=== PATIENT | female | born 1995 | race Two or more races ===

== ENCOUNTER 2020-07-11 18:14 | Emergency (ER) | payer SELFPAY ==
[2020-07-11 19:01] VITALS: BP 131/77; PULSE 90; RESP 16; TEMP 36.6; O2SAT 99; BMI 39.4
--- NOTE | 2020-07-11 19:05 | ED.CHESTPAIN ---
HPI - Chest Pain General Chief Complaint: Chest Pain Stated Complaint: sob Time Seen by Provider: 07/11/20 18:54 Source: patient Mode of arrival: ambulatory Limitations: no limitations History of Present Illness HPI narrative: patient 24 years old with no comorbid condition nonsmoker no family history of coronary artery disease noticed mid chest pain while driving an hour ago which was increasing while taking a deep breath. No shortness of breath no radiation of pain no diaphoresis no nausea no vomiting patient never had any chest pain like this before. Patient has no risk for coronary artery disease / blood clots complaint: chest pain Onset (ago): hour(s) (1) Timing of current episode: constant Prior episodes: No Onset: during rest Pain location: substernal Pain radiation: none Severity: mild Related Data Previous Rx's Medication Instructions Recorded ibuprofen 600 mg PO Q6H PRN #20 tab 07/11/20 Allergies Allergy/AdvReac Type Severity Reaction Status Date / Time No Known Allergies Allergy Unverified 05/27/20 19:08 Review of Systems Review of Systems: REVIEW OF SYSTEMS: Pertinent positives and negatives are stated above in the history. GEN: no fevers, chills, fatigue HEENT: no nasal congestion, sore throat, ear pain NEURO: no headache, dizziness, focal weakness PULM: no cough, shortness of breath CV: no palpitations, LE edema ABD: no abdominal pain, nausea, vomiting, diarrhea : no dysuria, urgency, frequency SKIN: no rash ROS otherwise negative x 10 PMFSH Past Medical History Medical History No known health problems Social History Social History Alcohol intake: never Smoking Status: Never smoker Use of substances other than those prescribed or required for medical reasons: No Advance Directives: No Physical Exam Vital Signs: Vital Signs: Vital Signs Temp Pulse Resp BP Pulse Ox 07/11/20 19:08 97.9 F 90 16 131/77 99 07/11/20 19:01 97.9 F 90 16 131/77 99 Body Mass Index 39.4 Appearance: Alert. Oriented X3. No acute distress. Eyes: Pupils equal, round and reactive to light. ENT: Pharynx normal. Neck: Normal inspection. Neck supple. CVS: Normal heart rate and rhythm. Pulses normal. Respiratory: No respiratory distress. Breath sounds normal. Abdomen: Soft and nontender. Skin: Skin warm and dry. Normal skin color. Normal skin turgor. Extremities: No lower extremity edema. Good range of movement Neuro: Oriented X 3. No motor deficit. No sensory deficit. Course Course Course Narrative: patient with atypical chest pain with no risk factor for coronary artery disease/ PE EKG normal high sensitive troponin is negative will discharge her home on ibuprofen MDM - Chest Pain Lab Data Labs: Lab Results 07/11/20 Range/Units 19:13 Troponin I High Sens < 3.5 (<3.5-17.0) ng/L ECG Data ECG #1: Attestation: I personally reviewed and interpreted this ECG as follows: ECG interpretation date: 07/11/20 ECG interpretation time: 20:07 Interpretation: normal sinus rhythm heart rate [address] T wave changes normal intervals impression normal EKG Scores Heart Score History: -0- slightly suspicious ECG: -0- normal Age: -0- < or = 45 Risk factory: -0- no risk factors known Troponin: -0- < or = normal limit Score: 0 Risk: 1.7% Discharge Plan Discharge Clinical Impression: Atypical chest pain Patient Disposition: Home, Self-Care Instructions: Chest Wall Pain (ED) Additional Instructions: your chest pain is unlikely from the heart, take ibuprofen for pain and follow-up with primary care doctor Prescriptions: New ibuprofen 600 mg tablet 600 mg PO Q6H PRN (Reason: pain) Qty: 20 RF: 0
--- NOTE | 2020-07-11 19:06 | ECG_ITS ---
Test Reason : SOB Blood Pressure : / mmHG Vent. Rate : 072 BPM Atrial Rate : 072 BPM P-R Int : 146 ms QRS Dur : 092 ms QT Int : 382 ms P-R-T Axes : 033 008 027 degrees QTc Int : 418 ms Normal sinus rhythm Possible Left atrial enlargement Borderline ECG No previous ECGs available Referred By: Fahad Rouse Electronically Signed By:ASIF ARCHIBALD MD
[2020-07-11 19:08] VITALS: BP 131/77; PULSE 88; PULSE 90; RESP 16; TEMP 36.6; O2SAT 99
[2020-07-11 19:57] LABS: Troponin-I High Sensitivity < 3.5 ng/L (<3.5-17.0)
[2020-07-11 20:00] VITALS: BP 127/77; PULSE 88; RESP 16; TEMP 36.8; O2SAT 100
== END 2020-07-11 20:21 | disposition home or self-care (01) ==
PROVIDERS: Emergency Provider Internal Medicine; PCP Internal Medicine
DX: R07.9 Chest pain, unspecified (principal); Z82.49 Family history of ischemic heart disease and other diseases of the circulatory system
CPT/HCPCS: 84484; 93005; 99283; 99284

== ENCOUNTER 2021-04-05 13:06 | Outpatient (REF) | payer OTHER, SELFPAY ==
[2021-04-06 08:48] LABS: HBS Num1 0.35 mIU/mL (0-7.99); ~Hepatitis B Surface Antibody NONREACTIVE (Nonreactive)
[2021-04-06 09:27] LABS: HBc Num1 0.06 S/CO (0.00-0.79); HBsAGNum1 0.24 S/CO (0.00-0.99); Hepatitis B Core Antibody Nonreactive (Nonreactive); Hepatitis B Surface Antigen Negative (Negative)
[2021-04-07 06:35] LABS: Rubella IgG Antibody 2.08 Index
[2021-04-07 21:26] LABS: TS Negative Control Passed; TS Panel A 0; TS Panel B 0; TS Positive Control Passed; TSpotTB Negative (SeeBelow)
== END 2021-04-05 13:07 | disposition home or self-care (01) ==
LOC: HO.LAB 13:06
PROVIDERS: PCP Internal Medicine; Visit Provider Internal Medicine
DX: Z01.84 Encounter for antibody response examination (principal); Z11.1 Encounter for screening for respiratory tuberculosis
CPT/HCPCS: 36415; 86481; 86704; 86706; 86735; 86762; 86765; 86787; 87340

== ENCOUNTER 2021-11-15 08:58 | Outpatient (REF) | payer OTHER, SELFPAY ==
[2021-11-15 09:26] LABS: MANUAL DIFF FLAG NO
[2021-11-15 10:04] LABS: Basophils Percent Auto 0.3 % (0-2); Eosinophils Absolute Auto 0.1 X10*3/uL (0.0-0.4); Eosinophils Percent Auto 1.2 % (0-4); Imm Gran Abs Auto 0.02 X10*3/uL (0.00-0.03); Imm Gran Pct Auto 0.3 % (0.0-0.4); Lymphocytes Absolute Auto 2.8 X10*3/uL (1.2-4.9); Lymphocytes Percent Auto 37.4 % (20-40); Mean Corpuscular HGB Conc 30.2 g/dl (31.0-35.0); Mean Corpuscular Hemoglobin 25.4 pg (27.0-33.0); Mean Platelet Volume 9.9 fL (9.4-12.3); Monocytes Absolute Auto 0.5 X10*3/uL (0.1-1.2); Monocytes Percent Auto 6.4 % (2-11); Neutrophils Absolute Auto 4.1 x10*3/uL (2.0-8.3); Neutrophils Percent Auto 54.4 % (45-73); Platelet Count 351 X10*3/uL (160-400); Red Blood Count 5.12 X10*6/uL (4.20-5.50); Red Cell Distribution Width 14.2 % (11.0-16.0); White Blood Count 7.6 X10*3/uL (4.8-10.8)
[2021-11-15 10:41] LABS: Alanine Aminotransferase 98 U/L (0-31); Albumin Level 4.5 g/dL (3.5-5.0); Alkaline Phosphatase 84 U/L (39-117); Anion Gap 13 (12-20); Aspartate Amino Transferase 52 U/L (5-31); Bilirubin Total 0.5 mg/dL (0.0-1.0); Blood Urea Nitrogen 8 mg/dL (9-16); Calcium 9.9 mg/dL (8.4-10.2); Carbon Dioxide 27 mmol/L (22-29); Chloride 104 mmol/L (96-108); Cholesterol 163 mg/dL; Estimated Glomerular Filt Rate > 60; Glucose Fasting 129 mg/dL (60-99); HDL Cholesterol 43 mg/dL; LDL Cholesterol Calculated 100 mg/dl; Potassium 4.8 mmol/L (3.3-5.1); Sodium 139 mmol/L (135-145); Total Protein 7.5 g/dL (6.5-8.0); Triglycerides 100 mg/dL
[2021-11-15 10:48] LABS: Thyroid Stimulating Hormone 1.35 uIU/mL (0.32-4.0)
[2021-11-16 08:46] LABS: DHEA Sulfate 170 mcg/dL (14-349)
[2021-11-16 08:56] LABS: Follicle Stimulating Hormone 4.5 mIU/mL
[2021-11-19 19:36] LABS: Testosterone, Free 9.1 pg/mL (0.1-6.4); Testosterone, Total 42 ng/dL (2-45)
== END 2021-11-15 08:59 | disposition home or self-care (01) ==
LOC: HO.LAB 08:58
PROVIDERS: PCP Internal Medicine; Visit Provider Nurse Practitioner Family
DX: D64.9 Anemia, unspecified (principal); E66.01 Morbid (severe) obesity due to excess calories; E78.5 Hyperlipidemia, unspecified; N91.2 Amenorrhea, unspecified
CPT/HCPCS: 36415; 80053; 80061; 82627; 83001; 84146; 84402; 84403; 84443; 85025

== ENCOUNTER → 2021-12-02 08:02 | Outpatient (BNVA) | payer OTHER, SELFPAY | PROVIDERS: PCP Internal Medicine; Referring Provider Physician Assistant; Visit Provider Physician Assistant Surgical | DX: Z13.89 Encounter for screening for other disorder (principal) ==

== ENCOUNTER → 2021-12-09 12:53 | Outpatient (BNVA) | payer OTHER, SELFPAY | PROVIDERS: PCP Internal Medicine; Referring Provider Internal Medicine; Visit Provider Physician Assistant Surgical | DX: Z13.89 Encounter for screening for other disorder (principal) ==

== ENCOUNTER 2021-12-20 07:13 | Outpatient (REF) | payer OTHER, SELFPAY ==
--- NOTE | 2021-12-20 07:27 | ECG_ITS ---
Test Reason : E66.01 Blood Pressure : / mmHG Vent. Rate : 069 BPM Atrial Rate : 069 BPM P-R Int : 156 ms QRS Dur : 094 ms QT Int : 394 ms P-R-T Axes : 026 002 021 degrees QTc Int : 422 ms Normal sinus rhythm Normal ECG When compared with ECG of 11-JUL-2020 21:03, No significant change was found Referred By: Reed King Electronically Signed By:Colton Elizabeth
[2021-12-20 08:12] LABS: Estimated Average Glucose 120 mg/dL; Hemoglobin A1c % 5.8 %
[2021-12-20 08:24] LABS: C Reactive Protein 1.48 mg/dL (< or = 0.50); Iron 67 mcg/dL (30-160); Percent Iron Saturation 18 % (15-50); Total Iron Binding Capacity 382 mcg/dL (228-428); Unsaturated Iron Binding 315 ug/dL
[2021-12-20 08:45] LABS: Ferritin 94 ng/mL (10-122); Insulin 21 uU/mL (2-29); Vitamin D 25-OH Total 17.5 ng/mL (>30)
[2021-12-20 08:54] LABS: Folate > 20.0 ng/mL (> or = 4.0); Vitamin B12 546 pg/mL (200-900)
[2021-12-21 11:31] LABS: Calcium (PTHI) 9.9 mg/dL (8.6-10.2); PTHI 72 pg/mL (16-77)
[2021-12-21 12:54] LABS: H Pylori Breath Test Negative (Negative)
[2021-12-23 15:16] LABS: Zinc 75 mcg/dL (60-130)
[2021-12-24 08:27] LABS: Vitamin B1 7 nmol/L (8-30)
[2021-12-27 03:01] LABS: Vitamin A 37 mcg/dL (38-98)
== END 2021-12-20 07:14 | disposition home or self-care (01) ==
LOC: HO.LAB 07:13
PROVIDERS: PCP Internal Medicine; Visit Provider Physician Assistant Surgical
DX: Z01.818 Encounter for other preprocedural examination (principal); E66.01 Morbid (severe) obesity due to excess calories
CPT/HCPCS: 36415; 82306; 82607; 82728; 82746; 83013; 83036; 83525; 83540; 83970; 84425; 84590; 84630; 86140; 93005

== ENCOUNTER → 2021-12-27 08:02 | Outpatient (BNVA) | payer OTHER, SELFPAY | PROVIDERS: PCP Internal Medicine; Visit Provider Dietitian, Registered | DX: Z13.89 Encounter for screening for other disorder (principal) ==

== ENCOUNTER → 2021-12-29 07:57 | Outpatient (BNVA) | payer OTHER, SELFPAY | PROVIDERS: PCP Internal Medicine; Referring Provider Physician Assistant Surgical; Visit Provider Dietitian, Registered | DX: E66.9 Obesity, unspecified (principal); Z68.41 Body mass index [BMI] 40.0-44.9, adult | CPT/HCPCS: 97802 ==

== ENCOUNTER → 2021-12-30 08:04 | Outpatient (BNVA) | payer OTHER, SELFPAY | PROVIDERS: PCP Internal Medicine; Visit Provider Surgery | DX: Z13.89 Encounter for screening for other disorder (principal) ==

== ENCOUNTER → 2022-01-17 09:00 | Outpatient (BNVA) | payer OTHER, SELFPAY | PROVIDERS: PCP Internal Medicine; Visit Provider Counselor Mental Health | DX: F33.0 Major depressive disorder, recurrent, mild (principal); F50.81 Binge eating disorder ==

== ENCOUNTER → 2022-01-19 08:04 | Outpatient (BNVA) | payer OTHER, SELFPAY | PROVIDERS: PCP Internal Medicine; Visit Provider Dietitian, Registered | DX: Z13.89 Encounter for screening for other disorder (principal) ==

== ENCOUNTER 2022-01-31 08:27 | Outpatient (REF) | payer OTHER, SELFPAY ==
--- NOTE | ~2022-01-31 | FL_ITS ---
EXAMINATION: XR FLUOROSCOPY UPPER GI WITH AIR CLINICAL INFORMATION: Obesity COMPARISON: None TECHNIQUE: Upper GI was performed using thin and thick barium and effervescent granules FINDINGS: There is gastroesophageal reflux. Esophageal motility is normal. No hernia is seen. The stomach and duodenum are normal. No fold thickening, mass, ulcer or stricture is seen. FLUOROSCOPY TIME: 0.6 minutes DOSE AREA PRODUCT: 5.4 vaughan per centimeter squared. 21 saved fluoroscopic images. FL/FL upper GI w air IMPRESSION: Gastroesophageal reflux.
--- NOTE | ~2022-01-31 | US_ITS ---
EXAMINATION: US COMPLETE ABDOMEN WITH LIVER ELASTOGRAPHY CLINICAL INFORMATION: Obesity COMPARISON: None. TECHNIQUE: Real-time imaging of the abdominal viscera. Noninvasive ultrasound liver fibrosis assessment is performed using Chandler ElastPQ point quantification shear wave elastography (2D-SWE) with a C5-2 MHz transducer. Multiple elastography samples are obtained. FINDINGS: PANCREAS: Normal. ABDOMINAL AORTA: The proximal, middle, and distal aortic segments are normal in caliber. INFERIOR VENA CAVA: Visualized portions are normal. LIVER: Liver echotexture is increased. There is a hypoechoic area adjacent to the gallbladder, characteristic location of focal fatty sparing. The liver is enlarged. Liver contour is normal.. No focal lesion or intrahepatic biliary duct dilatation. The right lobe measures 22 cm in length. The left lobe measures 17 cm in length. Portal flow is normal/hepatopedal Shear wave liver elastography median stiffness is 1.4 m/s (reference: normal median stiffness is 1.3 m/s or less). IQR/median stiffness to assess sampling precision is 0.08 (reference: good quality data set is IQR/median stiffness of 0.15 or less). GALLBLADDER: Normal. The gallbladder is physiologically distended without evidence of stones, sludge, polyps, wall thickening or pericholecystic fluid. COMMON BILE DUCT: Normal in caliber measuring 0.3 cm in diameter. RIGHT KIDNEY: Normal. No hydronephrosis. No renal calculi or focal parenchymal lesions. The kidney measures 13 cm in maximum dimension. LEFT KIDNEY: Normal. No hydronephrosis. No renal calculi or focal parenchymal lesions. The kidney measures 12 cm in maximum dimension. SPLEEN: Normal. The spleen measures 12 cm in maximum dimension. FREE FLUID: None. US/US abdomen comp w elastography IMPRESSION: 1. Impression: Enlarged echogenic liver suggestive of fatty infiltration. 2. Liver elastography: Adequate liver sampling. In the absence of other known clinical signs, rules out compensated advanced chronic liver disease. REFERENCE: Society of Radiologists in Ultrasound Liver Stiffness Thresholds (2020): LIVER STIFFNESS THRESHOLDS: *Liver Stiffness equal or less than 1.3 m/s: High probability of being normal. *Liver Stiffness less than 1.7 m/s: In the absence of other known clinical signs, rules out compensated advanced chronic liver disease. *Liver Stiffness 1.7-2.1 m/s: Suggestive of compensated advanced chronic liver disease but need further test for confirmation. *Liver Stiffness over 2.1 m/s: Rules in compensated advanced chronic liver disease. *Liver Stiffness over 2.4 m/s: Suggestive of clinically significant portal hypertension. QUALITY OF DATA SET: *IQR/Median value equal or less than 0.15 implies a quality data set. *IQR/Median value over 0.15 implies a poor quality data set. SIGNIFICANT CHANGE FROM PRIOR EXAM: Significant change if liver stiffness measurement is 10% or greater from prior exam. OTHER CONSIDERATIONS: The stage of liver fibrosis may be overestimated in the setting of acute hepatitis, liver inflammation, elevated liver function tests, hepatic vascular congestion, obstructive cholestasis, non-fasting state, and infiltrative diseases such as amyloidosis and lymphoma. In some patients with NAFLD, the liver stiffness thresholds for compensated advanced chronic liver disease may be lower. In causes other than viral hepatitis and NAFLD, liver stiffness thresholds are not well established.
--- NOTE | ~2022-01-31 | XR_ITS ---
EXAMINATION: XR CHEST CLINICAL INFORMATION: Obesity COMPARISON: Previous chest x-ray September 2018 TECHNIQUE: 2 views of the chest were obtained. FINDINGS: No significant abnormality is noted involving the heart, lungs, mediastinum, bony thorax or soft tissues. XR/XR chest 2V IMPRESSION: Unremarkable examination.
== END 2022-01-31 08:28 | disposition home or self-care (01) ==
LOC: HO.US 08:27
PROVIDERS: PCP Internal Medicine; Visit Provider Surgery
DX: Z01.818 Encounter for other preprocedural examination (principal); E66.01 Morbid (severe) obesity due to excess calories; K21.9 Gastro-esophageal reflux disease without esophagitis
CPT/HCPCS: 71046; 74246; 76705; 76981

== ENCOUNTER → 2022-02-03 08:25 | Outpatient (BNVA) | payer OTHER, SELFPAY | PROVIDERS: PCP Internal Medicine; Visit Provider Surgery | DX: Z13.89 Encounter for screening for other disorder (principal) ==

== ENCOUNTER → 2022-02-07 09:00 | Outpatient (BNVA) | payer OTHER, SELFPAY | PROVIDERS: PCP Internal Medicine; Visit Provider Counselor Mental Health | DX: F33.0 Major depressive disorder, recurrent, mild (principal); F50.81 Binge eating disorder | CPT/HCPCS: 90832 ==

== ENCOUNTER 2023-07-04 10:07 | Outpatient (AMB) | payer OTHER, SELFPAY ==
--- NOTE | 2023-07-04 10:18 | A.OFFVIS_ITS ---
Intake Vital Signs 07/04/23 10:26 Height 5 ft 6 in Weight 250 lb BMI 40.3 BP 122/76 Intake Visit Reasons: EMT I/99 annual exam Intake Note: Having trouble conceive Janitorial Supervisor Required: No Information Interpreted: non-clinical & clinical Laundry Equipment Operator: Laundry Equipment Operator Present (Vivi CORONA) Accompanied by: Self / Same As Patient Allergies No Known Allergies Allergy (Verified 07/04/23 10:28) Medication List - Last Reconciled 07/04/23 by Libby Coburn CNM PNV #[id number] 30 mg iron-10 mg iron-1 mg caps PO Is last menstrual period known: Yes Last menstrual period: 05/21/23 HPI EMT I/99 annual exam HPI Details Patient is here for an annual exam and also did discuss her efforts to get and she has been trying for 5 years and her periods have become more irregular and longer when she does get them her last period was 911 and it lasted for 2 weeks she has also gained weight over the years she has recently begun and weight loss efforts doing her exercises at home every day for 30-45 minutes after work and she is seeing some results but not maybe is fast as she would like she is cut out a lot of carbs and dairy and is working hard on her diet she was told she was prediabetic she has noticed increased facial hair over the last 3 months. She also has the darkening of the skin around her neck and other areas. She had tried the weight management program before but got scared before surgery. She gets very irregular periods and when they come they last a long time in are heavy. She is working hard on losing the weight because she knows that that is part of what she needs to do. [facility] Medical History Morbid obesity Lumbar pain No known health problems Surgical History No pertinent past surgical history Family History (Updated 07/04/23 @ 10:30 by Vivi Heath CMA) Father Diabetes mellitus Heart problem Mother Family history of thyroid problem Brother No problems noted. Maternal Grandmother Breast cancer Social History (Updated 07/04/23 @ 10:32 by Vivi Heath CMA) Household Members: Significant Other Housing: Apartment Alcohol intake: current Alcohol intake frequency: holidays/special occasions only Alcohol type: wine Patient Tobacco Use Status: Never used Tobacco e-Cigarette/Vaping Use: Never Used Second Hand Smoke Exposure: No service: No Current occupational status: employed Current occupation: [employer] Current occupational exposures/hazards: No Sexually active: Yes Sexual orientation: Straight/Heterosexual Gender identity: Female Cognitive needs: No Hearing needs: No Vision needs: Yes Female Reproductive History Menstrual Date of last menstrual period: 05/21/23 Total pregnancies: 0 Date of last pap smear: 06/23/16 Physical Exam Vital Signs: Last Vital Signs BP 122/76 07/04/23 10:26 BMI result Body Mass Index 40.3 Const General: healthy appearing, comfortable, no acute distress, well developed and alert Nutritional Appearance: average body habitus Orientation/consciousness: patient oriented x3 Limitations: no limitations HEENT Head: Yes normocephalic Neck Neck: Yes normal visual inspection Thyroid: Thyroid normal Chest Chest palpation & inspection: normal inspection of the chest Breast/axilla inspection: normal inspection of the breasts and normal inspection of the axillae Breast/axilla palpation: normal palpation of the breasts and normal palpation of the axillae Resp Effort & Inspection: normal respiratory effort GI Inspection: Yes normal to inspection, No Abdominal wall edema and No distended Palpation (GI): Soft to palpation and nontender Other: External exam within normal limits vagina pink moist healthy cervix pink moist healthy nulliparous smooth uterus small mobile nontender adnexa nontender good tone with Kegel. General: Yes bladder normal to palpation External Female Exam: normal external appearance and normal appearance of the urethra Speculum Exam - Vagina: normal appearance of the vagina, normal palpation and normal vaginal discharge Speculum Exam - Cervix: normal appearance of the cervix, normal palpation and nontender Bimanual exam- vagina & uterus: normal bimanual exam, normal palpation, uterine size normal, bladder normal to palpation, consistency normal, normal palpation, uterine mobility normal, uterine shape normal, No Cervical tenderness present, non-tender and no cervical motion tenderness Bimanual Exam- Adnexa, other: normal adnexae, no masses, normal and No adnexal tenderness Neuro General: patient oriented x3 Assessment & Plan Assessment & Plan (1) Body mass index (BMI) of 40.1 to 44.9 in adult: Code(s): Z68.41 - Body mass index [BMI] 40.0-44.9, adult (2) Amenorrhea: Comment: Periods of amenorrhea followed by long periods. Code(s): N91.2 - Amenorrhea, unspecified (3) Impaired glucose tolerance: Code(s): R73.02 - Impaired glucose tolerance (oral) (4) Hirsutism: Code(s): L68.0 - Hirsutism (5) Acanthosis nigricans: Code(s): L83 - Acanthosis nigricans Plan -----Discussed in this visit the following: healthy balanced diet, regular and consistent exercise, getting recommended health screens, doing the best she can for her particular health concerns, kegel exercises, pap smear screening and followup recommendations, mammography screening and SBE, normal changes in cycles in her life stage--- . ---Discussed PCOS in general and specifically about the interplay of the abnormal hormonal milieu related to being overweight, with the elevations of many hormone levels, including testosterone and estrogen, as well as others that contribute to cycles that are anovulatory and therefore prolonged, and when periods do come they come very heavy, and can contribute to lots of cramping, with passage of clots and anemia. Discussed the common symptoms related to the elvated hormonal levels, including increased facial hair, male pattern hair thinning, acne, and increased central abdominal girth. Discussed the interplay with difficulty getting when desired, but still possible, and therefore the need to contracept as appropriate and when needed. Discussed the role of weight loss as the primary, most important, and most likely to succeed, intervention, in achieving healthier status as regards PCOS, and ovulatory regular cycles. Additionally the very important relationship to elevated insulin levels, and blood sugars, and high risk of pre diabetes, progressing to diabetes as well as other metabolic syndromes related to this was discussed. Also discussed common interventions for some of the above, including if appropriate, use of oral contraceptives, and progestin iuds, and provera.Discussed in general terms the challenges of obesity and challenges for her health and efforts she is engaging in to manage this including dietary changes water intake attention to sleep inclusion of a regular exercise have it and dealing with the may need stressors of life that can contribute to obesity in general. Encouraged her to continue in all have her best efforts Orders: Orders Pap Smear Today Z01.419 - Encounter for gynecological examination (general) (routine) without abnormal findings CT NG by PCR Today L68.0 - Hirsutism, L83 - Acanthosis nigricans, N91.2 - Amenorrhea, unspecified, R73.02 - Impaired glucose tolerance (oral), Z01.419 - Encounter for gynecological examination (general) (routine) without abnormal findings, Z68.41 - Body mass index [BMI] 40.0-44.9, adult Free T4 (Free Thyroxine) Today L68.0 - Hirsutism, L83 - Acanthosis nigricans, N91.2 - Amenorrhea, unspecified, R73.02 - Impaired glucose tolerance (oral), Z68.41 - Body mass index [BMI] 40.0-44.9, adult Comprehensive [place]. Panel Fast Today L68.0 - Hirsutism, L83 - Acanthosis nigricans, N91.2 - Amenorrhea, unspecified, R73.02 - Impaired glucose tolerance (oral), Z68.41 - Body mass index [BMI] 40.0-44.9, adult Glucose Tolerance 2 Hour Today L68.0 - Hirsutism, L83 - Acanthosis nigricans, N91.2 - Amenorrhea, unspecified, R73.02 - Impaired glucose tolerance (oral), Z68.41 - Body mass index [BMI] 40.0-44.9, adult US pelvic and transvaginal Today L68.0 - Hirsutism, L83 - Acanthosis nigricans, N91.2 - Amenorrhea, unspecified, R73.02 - Impaired glucose tolerance (oral), Z68.41 - Body mass index [BMI] 40.0-44.9, adult Bacterial Vaginosis Panel Today L68.0 - Hirsutism, L83 - Acanthosis nigricans, N91.2 - Amenorrhea, unspecified, R73.02 - Impaired glucose tolerance (oral), Z01.419 - Encounter for gynecological examination (general) (routine) without abnormal findings, Z68.41 - Body mass index [BMI] 40.0-44.9, adult Testosterone, Free/Total Today L68.0 - Hirsutism, L83 - Acanthosis nigricans, N91.2 - Amenorrhea, unspecified, R73.02 - Impaired glucose tolerance (oral), Z68.41 - Body mass index [BMI] 40.0-44.9, adult Thyroid Stimulating Hormone Today L68.0 - Hirsutism, L83 - Acanthosis nigricans, N91.2 - Amenorrhea, unspecified, R73.02 - Impaired glucose tolerance (oral), Z68.41 - Body mass index [BMI] 40.0-44.9, adult Referrals 2 Medical Weight Management Referral L68.0 - Hirsutism, L83 - Acanthosis nigricans, N91.2 - Amenorrhea, unspecified, R73.02 - Impaired glucose tolerance (oral), Z68.41 - Body mass index [BMI] 40.0-44.9, adult Medications: New desog-e.estradiol/e.estradiol 0.15-0.02 mgx21 /0.01 mg x 5 1 tab PO DAILY 84 tabs 4RF Coding Level of Care Code New Pt Prev Care 18-39yr([id number] Diagnoses Body mass index (BMI) of 40.1 to 44.9 in adult Z68.41 Amenorrhea N91.2 Impaired glucose tolerance R73.02 Hirsutism L68.0 Acanthosis nigricans L83
[2023-07-04 10:26] VITALS: BP 122/76; BMI 40.3
== END 2023-07-04 12:01 | disposition home or self-care (01) ==
PROVIDERS: PCP Internal Medicine; Visit Provider Advanced Practice Midwife
DX: Z01.419 Encounter for gynecological examination (general) (routine) without abnormal findings (principal); N91.2 Amenorrhea, unspecified; R73.02 Impaired glucose tolerance (oral); L68.0 Hirsutism; L83 Acanthosis nigricans; Z68.41 Body mass index [BMI] 40.0-44.9, adult
CPT/HCPCS: 99385

== ENCOUNTER 2023-07-04 10:07 | Outpatient (REF) | payer OTHER, SELFPAY ==
[2023-07-04 13:21] LABS: Free T4 (Free Thyroxine) 0.86 ng/dL (0.71-1.85); Thyroid Stimulating Hormone 1.05 uIU/mL (0.32-4.0)
[2023-07-04 18:40] LABS: CT PCR NOT DETECTED (Not Detect.); NG PCR NOT DETECTED (Not Detect.)
[2023-07-05 13:38] LABS: BV Int Neg Control Negative (Negative); BV Int Pos Control Positive (Positive)
[2023-07-09 14:39] LABS: Testosterone, Total 29 ng/dL (2-45)
== END 2023-07-04 10:08 | disposition home or self-care (01) ==
LOC: HO.LNP 10:07
PROVIDERS: PCP Internal Medicine; Visit Provider Advanced Practice Midwife
DX: Z01.419 Encounter for gynecological examination (general) (routine) without abnormal findings (principal); L83 Acanthosis nigricans; L68.0 Hirsutism; R73.02 Impaired glucose tolerance (oral); N91.2 Amenorrhea, unspecified; Z20.2 Contact with and (suspected) exposure to infections with a predominantly sexual mode of transmission
CPT/HCPCS: 0353U; 84402; 84403; 84439; 84443; 87480; 87510; 87660; 88142

== ENCOUNTER 2023-07-10 09:13 | Outpatient (REF) | payer OTHER, SELFPAY ==
[2023-07-10 10:30] LABS: Alanine Aminotransferase 41 U/L (0-31); Albumin Level 4.4 g/dL (3.5-5.0); Alkaline Phosphatase 62 U/L (39-117); Anion Gap 14 (12-20); Aspartate Amino Transferase 27 U/L (5-31); Bilirubin Total 0.5 mg/dL (0.0-1.0); Blood Urea Nitrogen 9 mg/dL (9-16); Calcium 9.7 mg/dL (8.4-10.2); Carbon Dioxide 25 mmol/L (22-29); Chloride 106 mmol/L (96-108); Estimated Glomerular Filt Rate > 60; Glucose Fasting 115 mg/dL (60-99); Potassium 4.3 mmol/L (3.3-5.1); Sodium 141 mmol/L (135-145); Total Protein 7.5 g/dL (6.5-8.0)
[2023-07-10 10:36] LABS: Glucose Fasting 115 mg/dL (60-99)
[2023-07-10 12:28] LABS: Glucose 1 Hour 162 mg/dL
[2023-07-10 12:28] LABS: Glucose 2 Hour 147 mg/dL
== END 2023-07-10 09:14 | disposition home or self-care (01) ==
LOC: HO.LAB 09:13
PROVIDERS: PCP Internal Medicine; Visit Provider Advanced Practice Midwife
DX: L83 Acanthosis nigricans (principal); L68.0 Hirsutism; R73.02 Impaired glucose tolerance (oral); N91.2 Amenorrhea, unspecified
CPT/HCPCS: 36415; 80053

== ENCOUNTER 2023-07-10 12:51 | Outpatient (REF) | payer OTHER, SELFPAY ==
--- NOTE | ~2023-07-10 | US_ITS ---
EXAMINATION: US PELVIS CLINICAL INFORMATION: Hirsutism. Acanthosis nigricans. Last menstrual period 05/21/2023. COMPARISON: None available. TECHNIQUE: Ultrasound of the pelvis is performed using both transabdominal and transvaginal transducers along with Doppler. Transvaginal imaging is performed due to inadequate visualization transabdominally. FINDINGS: The uterus is anteverted, heterogeneous and measures 7.2 x 3.8 x 4.2 cm. No discrete fibroids are identified. Endometrial thickness is 0.9 cm. Endometrium appears heterogeneous. There is no significant free fluid. Bilateral ovaries are unremarkable. Right ovary measures 2.5 x 2.4 x 2.4 cm, volume 7.48 mL. Left ovary measures 3.8 x 2.0 x 3.3 cm, volume 12.7 mL. US/US pelvic and transvaginal IMPRESSION: 1. No discrete fibroids. 2. Endometrial thickness of 0.9 cm. 3. Bilateral ovaries are unremarkable.
== END 2023-07-10 12:52 | disposition home or self-care (01) ==
LOC: HO.HMGCX 12:51
PROVIDERS: PCP Internal Medicine; Visit Provider Advanced Practice Midwife
DX: N91.2 Amenorrhea, unspecified (principal); L83 Acanthosis nigricans; L68.0 Hirsutism
CPT/HCPCS: 76830; 76856

== ENCOUNTER 2023-07-16 13:22 | Outpatient (AMB) | payer OTHER, SELFPAY ==
--- NOTE | 2023-07-16 13:22 | A.OFFVIS_ITS ---
Intake Intake Visit Reasons: TV us and lab follow up Vp Analysis Required: No Allergies No Known Allergies Allergy (Verified 07/16/23 13:23) Is last menstrual period known: Yes Last menstrual period: 07/16/23 Post menopausal: No HPI TV us and lab follow up HPI Details Tele visit to discuss patient's ultrasound and PCOS type labs. Call placed but the patient did not answer will recall in a few minutes. [facility] Medical History Morbid obesity Lumbar pain No known health problems Surgical History No pertinent past surgical history Family History Father Diabetes mellitus Heart problem Mother Family history of thyroid problem Brother No problems noted. Maternal Grandmother Breast cancer Social History Household Members: Significant Other Housing: Apartment Alcohol intake: current Alcohol intake frequency: holidays/special occasions only Alcohol type: wine Patient Tobacco Use Status: Never used Tobacco e-Cigarette/Vaping Use: Never Used Second Hand Smoke Exposure: No service: No Current occupational status: employed Current occupation: [employer] Current occupational exposures/hazards: No Sexual orientation: Straight/Heterosexual Gender identity: Female Cognitive needs: No Hearing needs: No Vision needs: Yes Female Reproductive History Menstrual Date of last menstrual period: 07/16/23 control method: none Date of last pap smear: 07/05/23 (negative) Results Reviewed Results Reviewed: RUN: 07/16/23 1330 PAGE 1 [facility] [address] [place] [id number] Teacher Instrumental: Felipe Little M.D. Specimen Inquiry Name: Veronica Hodge Age/Sex: 27/F : 1995 Unit#: [id number] Attend Dr: Libby Coburn Re07/04/23 Status: DEP REF Location: [facility] Disch: SPEC : [id number] RAEGAN: 07/04/23 STATUS: COMP REQ : [id number] RECD: 07/04/[address]: Libby Coburn COMP: 07/04/231 ENTERED: 07/04/[address]: Adriane Hampton MD ORDERED: Free T4, TSH Test Result Flag Reference Site Free T4 0.86 0.71-1.85 ng/dL TSH 3rd Gen. 1.05 0.32-4.0 uIU/mL TSH 3rd Generation ([facility]) Name: Veronica Hodge Age/Sex: 27/F : 1995 Unit#: [id number] Attend Dr: Libby Coburn [facility] Re07/10/23 Status: DEP [facility] Disch: SPEC : [id number] RAEGAN: 07/10/23 STATUS: COMP REQ : [id number] RECD: 07/10/[address]: Libby Coburn COMP: 07/10/230 ENTERED: 07/10/[address]: Adriane Hampton MD ORDERED: CMP Fast Test Result Flag Reference Site Sodium 141 135-145 mmol/L Potassium 4.3 3.3-5.1 mmol/L CL 106 96-108 mmol/L CO2 25 22-29 mmol/L Gap 14 12-20 BUN 9 9-16 mg/dL Creat 0.76 0.5-1.4 mg/dL EGFR > 60 NOTE: For -Honduran individuals, multiply the result by 1.210. Chronic Kidney Disease: Estimated GFR < 60 mL/min/1.73m2 Severe Kidney Disease: Estimated GFR < 15 mL/min/1.73m2 FBS 115 H 60-99 mg/dL A fasting glucose from 100-125 mg/dl is considered impaired (pre-diabetes). CA 9.7 8.4-10.2 mg/dL Total Bili 0.5 0.0-1.0 mg/dL AST (GOT) 27 5-31 U/L ALT (GPT) 41 H 0-31 U/L Protein, Total 7.5 6.5-8.0 g/dL Alb 4.4 3.5-5.0 g/dL Alk Phos 62 39-117 U/L Name: Veronica Hodge Age/Sex: 27/F : 1995 Unit#: [id number] Attend Dr: Libby Coburn CNM Re07/04/23 Status: DEP REF Location: [facility] Disch: SPEC : [id number] RAEGAN: 07/04/23 STATUS: COMP REQ : [id number] RECD: 07/04/[address]: Libby Coburn COMP: 07/09/23 ENTERED: 07/04/[address]: Adriane Hampton MD ORDERED: Testost Fr & T Test Result Flag Reference Site Testost, Tot 29 2-45 ng/dL QUM For additional information, please refer to http://education.Stigni.bg/faq/ [email or web address] (This link is being provided for informational/ educational purposes only.) This test was developed and its analytical performance characteristics have been determined by [facility] [place], [place]. It has not been cleared or approved by the U.S. Food and Drug Administration. This assay has been validated pursuant to the CLIA regulations and is used for clinical purposes. Testost, Free 5.0 0.1-6.4 pg/mL QUM This test was developed and its analytical performance characteristics have been determined by [facility] [place], [place]. It has not been cleared or approved by the U.S. Food and Drug Administration. This assay has been validated pursuant to the CLIA regulations and is used for clinical purposes. THIS TEST WAS PERFORMED AT: [employer] [address] SRINIVAS BENTON MD,PHD Patient: Veronica HodgeMR#: [id number]: 1995Acct:[id number]/Sex: FADM Date: 07/10/23Loc: [id number].[email or web address] Dr: Libby Coburn CNM Ordering Physician: Libby Coburn CNM Date of Service: 07/10/23 Procedure(s): US pelvic and transvaginal Accession Number(s): [id number] cc: Libby Coburn CNM; Adriane Hampton MD~ EXAMINATION: US PELVIS CLINICAL INFORMATION: Hirsutism. Acanthosis nigricans. Last menstrual period 05/21/2023. COMPARISON: None available. TECHNIQUE: Ultrasound of the pelvis is performed using both transabdominal and transvaginal transducers along with Doppler. Transvaginal imaging is performed due to inadequate visualization transabdominally. FINDINGS: The uterus is anteverted, heterogeneous and measures 7.2 x 3.8 x 4.2 cm. No discrete fibroids are identified. Endometrial thickness is 0.9 cm. Endometrium appears heterogeneous. There is no significant free fluid. Bilateral ovaries are unremarkable. Right ovary measures 2.5 x 2.4 x 2.4 cm, volume 7.48 mL. Left ovary measu res 3.8 x 2.0 x 3.3 cm, volume 12.7 mL. US/US pelvic and transvaginal IMPRESSION: 1. No discrete fibroids. 2. Endometrial thickness of 0.9 cm. 3. Bilateral ovaries are unremarkable. Dictated By:Gloria Espinosa MDSigned By:<Electronically signed by Gloria Espinosa MD in OV>07/11/23 1227 DD/ 1325TD/TT: Assessment & Plan Assessment & Plan (1) Cervical cancer screening: Comment: 07/04/2023 Pap is negative. Code(s): Z12.4 - Encounter for screening for malignant neoplasm of cervix (2) Acanthosis nigricans: Code(s): L83 - Acanthosis nigricans (3) Hirsutism: Code(s): L68.0 - Hirsutism (4) Impaired glucose tolerance: Comment: also noted 07/02- elevated fasting and 2'gtt c/w prediabetes, pt to f/u w pcc, see notes. Code(s): R73.02 - Impaired glucose tolerance (oral) (5) Body mass index (BMI) of 40.1 to 44.9 in adult: Code(s): Z68.41 - Body mass index [BMI] 40.0-44.9, adult (6) Amenorrhea: Comment: Periods of amenorrhea followed by long periods. Code(s): N91.2 - Amenorrhea, unspecified (7) Elevated alanine aminotransferase (ALT) level: Code(s): R74.01 - Elevation of levels of liver transaminase levels Plan I reviewed all of her labs and what some of the significance might be while she does not have all the clinical markers of PCOS she does have many of them sufficient to call at that. She had not started the control pills yet cou ld she had an heard from [facility] but I recommend she go pick them up and I double checked that the prescription did appear to have gone through for year supply of the OCPs I recommend she start them within the 1st few days of this. Which just started today. This will be a perfect time and if she gets them started early enough in the cycle than the next. 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 She is going to keep working on her health and she also received a notice from the weight management program for an appointment so she is going to be following up on that and she is really working on losing weight. Also discussed the increased liver function and the possible significance of that as well as the pre diabetes which she already knew about. Her thyroid level was in normal limits and the testosterone level was normal as well. We will see her in 3 months as she intends to start the OCPs and we will see her for blood pressure check and to see how she is doing. Telehealth Telehealth Location of provider rendering services: practice address Location of patient: address on file Patient Identification confirmed using: Name, : Yes Telehealth method: video Patient verbally consented to treatment: Yes Patient verbally consented to billing insurance company: Yes Patient informed of any privacy concerns related to visit: Yes Coding Level of Care Code Tele Est Pt Level 3 (31041) Diagnoses Cervical cancer screening Z12.4 Acanthosis nigricans L83 Hirsutism L68.0 Impaired glucose tolerance R73.02 Body mass index (BMI) of 40.1 to 44.9 in adult Z68.41 Amenorrhea N91.2 Elevated alanine aminotransferase (ALT) level R74.01 Time Spent (min) 35 Comment 5 cr./24 speaking w pt ( video didnt work),/6 charting
== END 2023-07-16 15:11 | disposition home or self-care (01) ==
LOC: HO.HWS 13:22
PROVIDERS: PCP Internal Medicine; Visit Provider Advanced Practice Midwife
DX: Z12.4 Encounter for screening for malignant neoplasm of cervix (principal); L83 Acanthosis nigricans; L68.0 Hirsutism; R73.02 Impaired glucose tolerance (oral); Z68.41 Body mass index [BMI] 40.0-44.9, adult; N91.2 Amenorrhea, unspecified; R74.01 Elevation of levels of liver transaminase levels
CPT/HCPCS: 99213

== ENCOUNTER → 2023-07-16 13:22 | Outpatient (BNVA) | payer OTHER, SELFPAY | PROVIDERS: PCP Internal Medicine; Visit Provider Advanced Practice Midwife ==

== ENCOUNTER → 2023-09-12 07:48 | Outpatient (BNVA) | payer OTHER, SELFPAY | PROVIDERS: PCP Internal Medicine; Visit Provider Surgery ==

== ENCOUNTER 2023-09-17 08:13 | Outpatient (AMB) | payer OTHER, SELFPAY ==
--- NOTE | 2023-09-17 08:06 | MHC.OFFVISWM ---
Intake VS Expanded 09/17/23 08:26 Height 5 ft 6 in Weight 247 lb 8 oz BMI 39.9 Body Fat % 44.7 Body Fat Mass 110.6 Fat Free Mass 137.2 Visceral Fat Rating 10 Body Water % 39.3 Body Water Mass 97.4 Basal Metabolic Rate/Score 1,940 Intake Visit Reasons: TV Re-Est SWL BMI Allergies No Known Allergies Allergy (Verified 09/17/23 08:06) Medication List - Last Reconciled 09/17/23 by Al Garner MD desog-e.estradiol/e.estradiol 0.15-0.02 mgx21 /0.01 mg x 5 1 tab PO DAILY PNV #[id number] 30 mg iron-10 mg iron-1 mg caps PO HPI TV Re-Est SWL BMI HPI Details Start time: 8.00am, End time: 8.36am ?I spent 31 minutes speaking with the patient on the phone plus an additional 5 minutes reviewing and updating records for a total of 36 minutes HPI Comments History of Present Illness Details She wakes at:?8AM, and goes to bed at?10 PM. Breakfast: snadwich, butter/ham/cheese/egg, 1 coffee, cream and 3 sugars AM snack: skip Lunch: coffee (black) PM snack: skip Dinner: rice beans and meat After dinner: coffee cream and 1 sugar Other snacks: none PFSH Medical History (Updated 09/17/23 @ 08:28 by Al Garner MD) Non-insulin dependent type 2 diabetes mellitus Morbid obesity Lumbar pain No known health problems Surgical History No pertinent past surgical history Family History Father Diabetes mellitus Heart problem Mother Family history of thyroid problem Brother No problems noted. Maternal Grandmother Breast cancer Social History Household Members: Significant Other Housing: Apartment Alcohol intake: current Alcohol intake frequency: holidays/special occasions only Alcohol type: wine Patient Tobacco Use Status: Never used Tobacco e-Cigarette/Vaping Use: Never Used Second Hand Smoke Exposure: No service: No Current occupational status: employed Current occupation: [employer] Current occupational exposures/hazards: No Sexual orientation: Straight/Heterosexual Gender identity: Female Cognitive needs: No Hearing needs: No Vision needs: Yes Assessment & Plan Assessment & Plan (1) Morbid obesity: Code(s): E66.01 - Morbid (severe) obesity due to excess calories Plan: 1. Plan for lap sleeve gastrectomy. If diaphragmatic or ventral hernias are present at time of surgery, these will be repaired laparoscopically as well. Risks and complications were discussed in detail including possible conversion to an open procedure, anastomotic leak, bleeding requiring transfusion, small bowel obstruction, , DVT and pulmonary embolism, cardiac, or pulmonary complications, as adjunct faculty for medical terminology complications such as anastomotic ulcer, insufficient weight loss and vitamin deficiencies. I emphasized the importance of close follow-up, adherence to instructions and good communication. 2., Nutritional counseling. Change plan to two Pure protein shakes (1/2 scoop in 8oz low fat unsweetened almond milk each) at 8am-10am and 11am-1pm, 1 Zone Perfect protein bar at 2pm-4pm, dinner at 5pm (8 forks of protein and 8 forks of salad/vegetables) and one more Zone Perfect protein bar at 7pm-9pm. So your plan includes 2 protein shakes, 2 protein bars and one meal. Meal to include lean meat (beef, fish, pork, turkey, chicken), or occitan yogurt, or egg whites, or beans with a salad with olive oil and fruits (berries, pears, apples, kiwi). Avoid salt, breads, potatoes, rice, pasta, desserts. 3. Each shake would be drunk slowly, like coffee in a period of 2 hours. 4. Cut each bar in 4 pieces and eat each piece in 30min to make each bar last 2 hours. 5. I emphasized the importance of measuring accurately the food portion and measure it when serving the food in plate 6. The meal portions include 8 full-size forks of meat and 8 full-size forks of salad. You always eat the meat portion but you can replace up to 4 forks for salad/vegetables with rice, potatoes or pasta, or a fruit if you like. The less you do it the better weight loss will be. 7. One full-size fork is what it can be scooped on the fork without falling aside and not what can be bit with the fork. Use regular forks like those you find in a typical restaurant. 8. Please send me weight measurements weekly on Fridays. Always include your diet and exercise plan. 9. Start treadmill with an incline of 2.0 and speed of 3.0. Increase incline by 1 every 3 min to a max incline of 8.0, stay 3min at 8.0 and then return to 2.0 and repeat same steps until at least 300 calories are burned, 5 times per week. Goal is to burn 2000 calories per week on exercise. Start also weight exercises with 20-30lbs for chest/shoulders/abdomen and 40-50lbs for thighs doing 2 sets of 15 repetitions each. 10. It is important of avoiding and for at least 18 months postoperatively and has been discussed at the infosession. 11. Goal is to lose at least 1.5-2lbs per week 12. Goal to lose 10% of your weight before surgery, which is about 25lbs. Ultimate weight goal: 222lbs before surgery. Orders: Orders Hemoglobin A1c Today E11.9 - Type 2 diabetes mellitus without complications, E66.01 - Morbid (severe) obesity due to excess calories Complete Blood Count Auto Diff Today E11.9 - Type 2 diabetes mellitus without complications, E66.01 - Morbid (severe) obesity due to excess calories Lipid Panel Today E11.9 - Type 2 diabetes mellitus without complications, E66.01 - Morbid (severe) obesity due to excess calories Zinc Today E11.9 - Type 2 diabetes mellitus without complications, E66.01 - Morbid (severe) obesity due to excess calories C Reactive Protein Today E11.9 - Type 2 diabetes mellitus without complications, E66.01 - Morbid (severe) obesity due to excess calories Vitamin A Today E11.9 - Type 2 diabetes mellitus without complications, E66.01 - Morbid (severe) obesity due to excess calories Ferritin Today E11.9 - Type 2 diabetes mellitus without complications, E66.01 - Morbid (severe) obesity due to excess calories Vitamin D 25-OH Total Today E11.9 - Type 2 diabetes mellitus without complications, E66.01 - Morbid (severe) obesity due to excess calories Insulin Today E11.9 - Type 2 diabetes mellitus without complications, E66.01 - Morbid (severe) obesity due to excess calories IRON PROFILE Today E11.9 - Type 2 diabetes mellitus without complications, E66.01 - Morbid (severe) obesity due to excess calories Comprehensive Met. Panel Today E11.9 - Type 2 diabetes mellitus without complications, E66.01 - Morbid (severe) obesity due to excess calories Vitamin B12 and Folate Today E11.9 - Type 2 diabetes mellitus without complications, E66.01 - Morbid (severe) obesity due to excess calories Vitamin B1 Today E11.9 - Type 2 diabetes mellitus without complications, E66.01 - Morbid (severe) obesity due to excess calories TSH reflex Free T4 Today E11.9 - Type 2 diabetes mellitus without complications, E66.01 - Morbid (severe) obesity due to excess calories US abdomen comp w elastography Today E11.9 - Type 2 diabetes mellitus without complications, E66.01 - Morbid (severe) obesity due to excess calories XR chest 2V Today E11.9 - Type 2 diabetes mellitus without complications, E66.01 - Morbid (severe) obesity due to excess calories ECG 12 lead EKG Today E11.9 - Type 2 diabetes mellitus without complications, E66.01 - Morbid (severe) obesity due to excess calories Referrals Behavioral Health Referral E11.9 - Type 2 diabetes mellitus without complications, E66.01 - Morbid (severe) obesity due to excess calories Nutrition/Dietitian Referral E11.9 - Type 2 diabetes mellitus without complications, E66.01 - Morbid (severe) obesity due to excess calories Telehealth Telehealth Location of provider rendering services: practice address Location of patient: address on file Patient Identification confirmed using: Name, : Yes Telehealth method: voice only Patient verbally consented to treatment: Yes Patient verbally consented to billing insurance company: Yes Patient informed of any privacy concerns related to visit: Yes Minutes spent on Phone/Video with Pt.: 36 Coding Level of Care Code Tele New Pt Level 3 (94178) Diagnoses Morbid obesity E66.01 Time Spent (min) 36
[2023-09-17 08:26] VITALS: BMI 39.9
== END 2023-09-17 08:37 | disposition home or self-care (01) ==
LOC: HO.HBS 08:13
PROVIDERS: PCP Internal Medicine; Visit Provider Surgery
DX: E66.01 Morbid (severe) obesity due to excess calories (principal); Z68.41 Body mass index [BMI] 40.0-44.9, adult
CPT/HCPCS: 99215

== ENCOUNTER → 2023-09-17 08:13 | Outpatient (BNVA) | payer OTHER, SELFPAY | PROVIDERS: PCP Internal Medicine; Visit Provider Surgery ==

== ENCOUNTER 2023-09-27 08:38 | Outpatient (REF) | payer OTHER, SELFPAY ==
--- NOTE | ~2023-09-27 | XR_ITS ---
EXAMINATION: XR CHEST CLINICAL INFORMATION: Morbid obesity COMPARISON: Chest x-ray on 12/01/2021 TECHNIQUE: 2 views of the chest were obtained. FINDINGS: vascularity. LUNGS: Lungs are clear. No pneumothorax is seen. BONES: Bony skeleton is intact. XR/XR chest 2V IMPRESSION: Unchanged Normal chest x-ray.
--- NOTE | 2023-09-27 08:47 | ECG_ITS ---
Test Reason : MORBID OBESITY Blood Pressure : / mmHG Vent. Rate : 074 BPM Atrial Rate : 074 BPM P-R Int : 164 ms QRS Dur : 092 ms QT Int : 392 ms P-R-T Axes : 026 -01 024 degrees QTc Int : 435 ms Normal sinus rhythm Normal ECG When compared with ECG of 20-DEC-2021 07:30, No significant change was found Referred By: Al Garner Electronically Signed By:DONITA MASON
[2023-09-27 08:56] LABS: MANUAL DIFF FLAG NO
[2023-09-27 09:25] LABS: Basophils Percent Auto 0.4 % (0-2); Eosinophils Absolute Auto 0.1 X10*3/uL (0.0-0.4); Hematocrit 38.3 % (37.0-47.0); Hemoglobin 12.2 g/dl (12.0-16.0); Imm Gran Abs Auto 0.02 X10*3/uL (0.00-0.03); Imm Gran Pct Auto 0.4 % (0.0-0.4); Lymphocytes Absolute Auto 2.1 X10*3/uL (1.2-4.9); Lymphocytes Percent Auto 41.8 % (20-40); Mean Corpuscular HGB Conc 31.9 g/dl (31.0-35.0); Mean Corpuscular Hemoglobin 26.1 pg (27.0-33.0); Monocytes Absolute Auto 0.3 X10*3/uL (0.1-1.2); Monocytes Percent Auto 6.7 % (2-11); Neutrophils Absolute Auto 2.5 x10*3/uL (2.0-8.3); Neutrophils Percent Auto 49.7 % (45-73); Platelet Count 378 X10*3/uL (160-400); Red Blood Count 4.67 X10*6/uL (4.20-5.50); Red Cell Distribution Width 13.9 % (11.0-16.0); White Blood Count 5.1 X10*3/uL (4.8-10.8)
[2023-09-27 09:34] LABS: Estimated Average Glucose 103 mg/dL; Hemoglobin A1c % 5.2 % (<6.0)
[2023-09-27 10:00] LABS: Alanine Aminotransferase 39 U/L (0-31); Albumin Level 4.4 g/dL (3.5-5.0); Alkaline Phosphatase 59 U/L (39-117); Anion Gap 13 (12-20); Aspartate Amino Transferase 28 U/L (5-31); Bilirubin Total 0.4 mg/dL (0.0-1.0); Blood Urea Nitrogen 11 mg/dL (9-16); C Reactive Protein 1.35 mg/dL (< or = 0.50); Calcium 9.8 mg/dL (8.4-10.2); Carbon Dioxide 27 mmol/L (22-29); Chloride 106 mmol/L (96-108); Cholesterol 145 mg/dL (<200); Estimated Glomerular Filt Rate > 60; Glucose Random 108 mg/dL (60-115); HDL Cholesterol 43 mg/dL (>40); Iron 39 mcg/dL (30-160); LDL Cholesterol Calculated 90 mg/dL (<100); Percent Iron Saturation 12 % (15-50); Potassium 4.1 mmol/L (3.3-5.1); Sodium 142 mmol/L (135-145); Total Iron Binding Capacity 320 mcg/dL (228-428); Total Protein 7.6 g/dL (6.5-8.0); Triglycerides 61 mg/dL (<150); Unsaturated Iron Binding 281 ug/dL
[2023-09-27 10:25] LABS: Ferritin 41 ng/mL (10-122); Insulin 18 uU/mL (2-29); TSH reflex Free T4 0.85 uIU/mL (0.32-4.0); Vitamin D 25-OH Total 21.5 ng/mL (>30)
[2023-09-27 10:27] LABS: Folate 13.1 ng/mL (> or = 4.0); Vitamin B12 642 pg/mL (200-900)
[2023-09-30 12:34] LABS: Zinc 56 mcg/dL (60-130)
[2023-10-01 17:29] LABS: Vitamin A 39 mcg/dL (38-98)
[2023-10-02 14:32] LABS: Vitamin B1 7 nmol/L (8-30)
== END 2023-09-27 08:39 | disposition home or self-care (01) ==
LOC: HO.LAB 08:38
PROVIDERS: PCP Internal Medicine; Visit Provider Surgery
DX: E66.01 Morbid (severe) obesity due to excess calories (principal); E11.9 Type 2 diabetes mellitus without complications
CPT/HCPCS: 36415; 71046; 80053; 80061; 82306; 82607; 82728; 82746; 83036; 83525; 83540; 84425; 84443; 84590; 84630; 85025; 86140; 93005

== ENCOUNTER → 2023-09-27 08:47 | Outpatient (BNV) | payer OTHER, SELFPAY | PROVIDERS: PCP Internal Medicine; Visit Provider Internal Medicine | DX: E66.01 Morbid (severe) obesity due to excess calories (principal) | CPT/HCPCS: 93010 ==

== ENCOUNTER 2023-10-05 08:09 | Outpatient (AMB) | payer OTHER, SELFPAY ==
--- NOTE | 2023-10-05 11:33 | MHC.OFFVISWM ---
Intake VS Expanded 10/05/23 11:42 Height 5 ft 6 in Weight 239 lb 8 oz BMI 38.7 Body Fat % 49.3 Body Fat Mass 118.2 Fat Free Mass 121.6 Visceral Fat Rating 20 Body Water % 34.8 Body Water Mass 83.4 Basal Metabolic Rate/Score 1,561 Intake Visit Reasons: TV Follow Up SWL - 1ST Allergies No Known Allergies Allergy (Verified 09/27/23 08:03) HPI TV Follow Up SWL - 1ST HPI Details Start time: 11.29am, End time: 11.52am ?I spent 18 minutes speaking with the patient on the phone plus an additional 5 minutes reviewing and updating records for a total of 23 minutes HPI Comments History of Present Illness Details Overall weight loss: 3.4lbs, or 1.4% TBWL Is doing 2 Premier protein shakes (1/2 scoop in 8oz almond milk), 2 Zone Perfect protein bars and one meal (8 forks of protein and 8 forks of salad or vegetables) Exercise: is doing treadmill (incline: 6-12, speed: 3mph) for 300 calories for 5 days per week [facility] Medical History (Updated 10/05/23 @ 11:50 by Al Garner MD) Non-insulin dependent type 2 diabetes mellitus Morbid obesity Lumbar pain No known health problems Surgical History No pertinent past surgical history Family History Father Diabetes mellitus Heart problem Mother Family history of thyroid problem Brother No problems noted. Maternal Grandmother Breast cancer Social History Household Members: Significant Other Housing: Apartment Alcohol intake: current Alcohol intake frequency: holidays/special occasions only Alcohol type: wine Patient Tobacco Use Status: Never used Tobacco e-Cigarette/Vaping Use: Never Used Second Hand Smoke Exposure: No service: No Current occupational status: employed Current occupation: [employer] Current occupational exposures/hazards: No Sexual orientation: Straight/Heterosexual Gender identity: Female Cognitive needs: No Hearing needs: No Vision needs: Yes Assessment & Plan Assessment & Plan (1) Obesity: Code(s): E66.9 - Obesity, unspecified Qualifiers: Obesity type: due to excess calories Obesity classification: adult class 2 (BMI 35 - 39.9) Serious obesity comorbidity presence: with serious comorbidity Body mass index: BMI 38.0-38.9 Qualified Code(s): E66.01 - Morbid (severe) obesity due to excess calories; Z68.38 - Body mass index [BMI] 38.0-38.9, adult Plan: 1. Continue same nutritional plan of 2 Premier protein shakes (1/2 scoop in 8oz almond milk), 2 Zone Perfect protein bars and one meal (8 forks of protein and 8 forks of salad or vegetables) 2. Exercise: continue treadmill (incline: 6-12, speed: 3mph) but increase either to 400 calories for 5 days per week, or 300 calories, daily 3. Continue to send me weight measurements weekly on Mondays Medications: New thiamine HCl (vitamin B1) 100 mg PO DAILY 60 tabs 0RF E51.9 - Thiamine deficiency, unspecified zinc gluconate 10 mg PO DAILY 100 ea 0RF E60 - Dietary zinc deficiency Telehealth Telehealth Location of provider rendering services: practice address Location of patient: address on file Patient Identification confirmed using: Name, : Yes Telehealth method: voice only Patient verbally consented to treatment: Yes Patient verbally consented to billing insurance company: Yes Patient informed of any privacy concerns related to visit: Yes Minutes spent on Phone/Video with Pt.: 23 Coding Level of Care Code Tele Est Pt Level 3 (51509) Diagnoses Class 2 severe obesity due to excess calories with serious comorbidity and body mass index (BMI) of 38.0 to 38.9 in adult E66.01; Z68.38 Obesity type: due to excess calories Obesity classification: adult class 2 (BMI 35 - 39.9) Serious obesity comorbidity presence: with serious comorbidity Body mass index: BMI 38.0-38.9 Time Spent (min) 23
[2023-10-05 11:42] VITALS: BMI 38.7
== END 2023-10-05 11:54 | disposition home or self-care (01) ==
LOC: HO.HBS 08:09
PROVIDERS: PCP Internal Medicine; Visit Provider Surgery
DX: E66.01 Morbid (severe) obesity due to excess calories (principal); Z68.38 Body mass index [BMI] 38.0-38.9, adult
CPT/HCPCS: 99213

== ENCOUNTER → 2023-10-05 08:09 | Outpatient (BNVA) | payer OTHER, SELFPAY | PROVIDERS: PCP Internal Medicine; Visit Provider Surgery ==

== ENCOUNTER 2023-10-12 08:24 | Outpatient (REF) | payer OTHER, SELFPAY ==
--- NOTE | ~2023-10-12 | US_ITS ---
EXAMINATION: US COMPLETE ABDOMEN WITH LIVER ELASTOGRAPHY CLINICAL INFORMATION: Obesity. COMPARISON: Abdominal ultrasound dated 01/31/2022. TECHNIQUE: Real-time imaging of the abdominal viscera. Noninvasive ultrasound liver fibrosis assessment is performed using Chandler ElastPQ point quantification shear wave elastography (2D-SWE) with a C5-2 MHz transducer. Multiple elastography samples are obtained. FINDINGS: PANCREAS: Normal. The visualized pancreatic head and body are normal in appearance. The remainder of the pancreas is obscured from visualization by the overlying bowel gas. ABDOMINAL AORTA: The proximal, middle, and distal aortic segments are normal in caliber. INFERIOR VENA CAVA: Visualized portions are normal. LIVER: The liver demonstrates normal size, contour and increased echogenicity, with pericholecystic sparing. No focal lesion or intrahepatic biliary duct dilatation. The right lobe measures 18.5 cm in length. The left lobe measures 11.4 cm in length. Portal flow is towards the liver (hepatopetal). Shear wave liver elastography median stiffness is 1.61 m/s (reference: normal median stiffness is 1.3 m/s or less). IQR/median stiffness to assess sampling precision is 0.20 (reference: good quality data set is IQR/median stiffness of 0.15 or less). GALLBLADDER: Normal. The gallbladder is physiologically distended without evidence of stones, sludge, polyps, wall thickening or pericholecystic fluid. COMMON BILE DUCT: Normal in caliber measuring 0.3 cm in diameter. RIGHT KIDNEY: Normal. No hydronephrosis. No renal calculi or focal parenchymal lesions. The kidney measures 12.0 cm in maximum dimension. LEFT KIDNEY: Normal. No hydronephrosis. No renal calculi or focal parenchymal lesions. The kidney measures 11.1 cm in maximum dimension. SPLEEN: Normal. The spleen measures 8.9 cm in maximum dimension. FREE FLUID: None. US/US abdomen comp w elastography IMPRESSION: 1. There is generalized increase in hepatic echotexture, consistent with fatty infiltration or hepatocellular disease. Please correlate clinically. Characteristic pericholecystic sparing favors fatty infiltration. No focal hepatic mass or intrahepatic biliary dilatation is seen. 2. There is hepatomegaly. 3. Liver elastography: Although measurements appear to rule out compensated advanced chronic liver disease, there is statistical variability of the sampling which decreases accuracy. REFERENCE: Society of Radiologists in Ultrasound Liver Stiffness Thresholds (2020): LIVER STIFFNESS THRESHOLDS: *Liver Stiffness equal or less than 1.3 m/s: High probability of being normal. *Liver Stiffness less than 1.7 m/s: In the absence of other known clinical signs, rules out compensated advanced chronic liver disease. *Liver Stiffness 1.7-2.1 m/s: Suggestive of compensated advanced chronic liver disease but need further test for confirmation. *Liver Stiffness over 2.1 m/s: Rules in compensated advanced chronic liver disease. *Liver Stiffness over 2.4 m/s: Suggestive of clinically significant portal hypertension. QUALITY OF DATA SET: *IQR/Median value equal or less than 0.15 implies a quality data set. *IQR/Median value over 0.15 implies a poor quality data set. SIGNIFICANT CHANGE FROM PRIOR EXAM: Significant change if liver stiffness measurement is 10% or greater from prior exam. OTHER CONSIDERATIONS: The stage of liver fibrosis may be overestimated in the setting of acute hepatitis, liver inflammation, elevated liver function tests, hepatic vascular congestion, obstructive cholestasis, non-fasting state, and infiltrative diseases such as amyloidosis and lymphoma. In some patients with NAFLD, the liver stiffness thresholds for compensated advanced chronic liver disease may be lower. In causes other than viral hepatitis and NAFLD, liver stiffness thresholds are not well established.
== END 2023-10-12 08:25 | disposition home or self-care (01) ==
LOC: HO.US 08:24
PROVIDERS: PCP Internal Medicine; Visit Provider Surgery
DX: E66.01 Morbid (severe) obesity due to excess calories (principal); E11.9 Type 2 diabetes mellitus without complications
CPT/HCPCS: 76700; 76981; 97803

== ENCOUNTER 2023-10-12 09:53 | Outpatient (AMB) | payer OTHER, SELFPAY ==
--- NOTE | 2023-10-12 09:38 | A.OFFVIS_ITS ---
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 doesn't feel hungry, likes the bar an shakes, no complaints. dinner: Premade salad , chicken and veg - prior to program, used to get restaurants a lot. Will provide quick/easy meal ideas to help Classes: completed, reviewed , answered all questions about vitamins and diet advancement Previous weight loss methods attempted Keteto, sweet potato diet and various food exclusion diets. exercise classes Dietary counseling reduction Who buys your food self Who prepares/cooks your food self Lifestyle Eating out 4 or more times/week Diagnosis Nutrition problem #1 overweight/obesity As related to (etiology) #1 excess energy intake and physical inactivity As evidenced by (sign/symptom) #1 high BMI Monitoring/Goals Nutrition problem monitoring total energy intake, level of knowledge/skill, total PRO intake, total CHO intake and weight Outcome progress progressing Learning/Education Readiness to learn excellent Stages of change action Educational materials provided Yes Most Recent Diabetes Results: Cholesterol 145 mg/dL (<200) 09/27/23 HDL Cholesterol 43 mg/dL (>40) 09/27/23 Triglycerides 61 mg/dL (<150) 09/27/23 Creatinine 0.83 mg/dL (0.5-1.4) 09/27/23 Blood Urea Nitrogen 11 mg/dL (9-16) 09/27/23 Sodium 142 mmol/L (135-145) 09/27/23 Potassium 4.1 mmol/L (3.3-5.1) 09/27/23 Chloride 106 mmol/L (96-108) 09/27/23 Carbon Dioxide 27 mmol/L (22-29) 09/27/23 Calcium 9.8 mg/dL (8.4-10.2) 09/27/23 AST 28 U/L (5-31) 09/27/23 ALT 39 U/L (0-31) H 09/27/23 Total Protein 7.6 g/dL (6.5-8.0) 09/27/23 Albumin 4.4 g/dL (3.5-5.0) 09/27/23 [facility] Medical History (Updated 10/05/23 @ 11:50 by Al Garner MD) Non-insulin dependent type 2 diabetes mellitus Morbid obesity Lumbar pain No known health problems Surgical History No pertinent past surgical history Family History Father Diabetes mellitus Heart problem Mother Family history of thyroid problem Brother No problems noted. Maternal Grandmother Breast cancer Social History Household Members: Significant Other Housing: Apartment Alcohol intake: current Alcohol intake frequency: holidays/special occasions only Alcohol type: wine Patient Tobacco Use Status: Never used Tobacco e-Cigarette/Vaping Use: Never Used Second Hand Smoke Exposure: No service: No Current occupational status: employed Current occupation: [employer] Current occupational exposures/hazards: No Sexual orientation: Straight/Heterosexual Gender identity: Female Cognitive needs: No Hearing needs: No Vision needs: Yes Assessment & Plan Assessment & Plan (1) Obesity (BMI 30-39.9): Code(s): E66.9 - Obesity, unspecified Plan Patient is cleared from a nutrition standpoint for bariatric surgery. Educational requirements have been completed. Reviewed vitamin supplementation and commitment to protein shake for several months post surgery. Encouraged communication with office as needed Telehealth Telehealth Location of provider rendering services: practice address Location of patient: address on file Patient Identification confirmed using: Name, : Yes Telehealth method: video Patient verbally consented to treatment: Yes Patient verbally consented to billing insurance company: Yes Patient informed of any privacy concerns related to visit: Yes Minutes spent on Phone/Video with Pt.: 20 Coding Level of Care Code Nutr Indiv Subseq (56428) Diagnoses Obesity (BMI 30-39.9) E66.9 Time Spent (min) 20
== END 2023-10-12 09:59 | disposition home or self-care (01) ==
LOC: HO.HBS 09:53
PROVIDERS: PCP Internal Medicine; Visit Provider Dietitian, Registered
DX: E66.9 Obesity, unspecified (principal)

== ENCOUNTER 2023-10-15 08:48 | Outpatient (AMB) | payer OTHER, SELFPAY ==
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
== END 2023-10-15 08:53 | disposition home or self-care (01) ==
LOC: HO.HBST 08:48
PROVIDERS: PCP Internal Medicine; Visit Provider Counselor Mental Health
DX: F43.20 Adjustment disorder, unspecified (principal); E66.01 Morbid (severe) obesity due to excess calories
CPT/HCPCS: 90791

== ENCOUNTER → 2023-10-15 08:48 | Outpatient (BNVA) | payer OTHER, SELFPAY | PROVIDERS: PCP Internal Medicine; Visit Provider Counselor Mental Health ==

== ENCOUNTER 2023-11-01 08:04 | Outpatient (AMB) | payer OTHER, SELFPAY ==
--- NOTE | 2023-11-01 11:44 | MHC.OFFVISWM ---
Intake VS Expanded 11/01/23 11:58 Height 5 ft 6 in Weight 237 lb 4 oz BMI 38.3 Body Fat % 48.8 Body Fat Mass 115.8 Fat Free Mass 121.6 Visceral Fat Rating 18 Body Water % 35.2 Body Water Mass 83.5 Basal Metabolic Rate/Score 1,561 Intake Visit Reasons: TV Follow Up SWL Allergies No Known Allergies Allergy (Verified 09/27/23 08:03) HPI TV Follow Up SWL HPI Details Start time: 11.41am, End time: 12.03pm ?I spent 17 minutes speaking with the patient on the phone plus an additional 5 minutes reviewing and updating records for a total of 22 minutes HPI Comments History of Present Illness Details Overall weight loss: 5.8lbs, or 2.38% TBWL Is doing 2 Pure protein shakes (1/2 scoop in almond milk), 2 Zone Perfect protein bars and one meal (8 protein of protein and 8 forks of salad or vegetables) Exercise: is doing treadmill (speed: 3-4, incline: 10-12) x5/week for 300 calories [facility] Medical History (Updated 10/15/23 @ 08:52 by Fátima Alvarenga) Non-insulin dependent type 2 diabetes mellitus Morbid obesity Lumbar pain No known health problems Surgical History No pertinent past surgical history Family History Father Diabetes mellitus Heart problem Mother Family history of thyroid problem Brother No problems noted. Maternal Grandmother Breast cancer Social History Household Members: Significant Other Housing: Apartment Alcohol intake: current Alcohol intake frequency: holidays/special occasions only Alcohol type: wine Patient Tobacco Use Status: Never used Tobacco e-Cigarette/Vaping Use: Never Used Second Hand Smoke Exposure: No service: No Current occupational status: employed Current occupation: [employer] Current occupational exposures/hazards: No Sexual orientation: Straight/Heterosexual Gender identity: Female Cognitive needs: No Hearing needs: No Vision needs: Yes Assessment & Plan Assessment & Plan (1) Obesity: Code(s): E66.9 - Obesity, unspecified Qualifiers: Obesity type: due to excess calories Obesity classification: adult class 2 (BMI 35 - 39.9) Serious obesity comorbidity presence: with serious comorbidity Body mass index: BMI 38.0-38.9 Qualified Code(s): E66.01 - Morbid (severe) obesity due to excess calories; Z68.38 - Body mass index [BMI] 38.0-38.9, adult Plan: 1) Continue same nutritional plan of 2 Pure protein shakes (1/2 scoop in almond milk), 2 Zone Perfect protein bars and one meal (8 protein of protein and 8 forks of salad or vegetables). 2. Start treadmill with an incline of 6.0 and speed of 3.5. Increase incline by 1 every 3 min to a max incline of 12.0, stay 3min at 12.0 and then return to 6.0 and repeat same steps until calorie goal is met. Goal is to burn 2000 calories per week on exercise, which means either 300 calories daily, or 400 calories 5 days per week, or 500 calories 4 days per week, or 650 calories 3 days per week. 3. Send me weight measurements weekly on Telehealth Telehealth Location of provider rendering services: practice address Location of patient: address on file Patient Identification confirmed using: Name, : Yes Telehealth method: voice only Patient verbally consented to treatment: Yes Patient verbally consented to billing insurance company: Yes Patient informed of any privacy concerns related to visit: Yes Coding Level of Care Code Tele Est Pt Level 3 (21632) Diagnoses Class 2 severe obesity due to excess calories with serious comorbidity and body mass index (BMI) of 38.0 to 38.9 in adult E66.01; Z68.38 Obesity type: due to excess calories Obesity classification: adult class 2 (BMI 35 - 39.9) Serious obesity comorbidity presence: with serious comorbidity Body mass index: BMI 38.0-38.9 Time Spent (min) 22
[2023-11-01 11:58] VITALS: BMI 38.3
== END 2023-11-01 12:04 | disposition home or self-care (01) ==
PROVIDERS: PCP Internal Medicine; Visit Provider Surgery
DX: E66.01 Morbid (severe) obesity due to excess calories (principal); Z68.38 Body mass index [BMI] 38.0-38.9, adult
CPT/HCPCS: 99213

== ENCOUNTER → 2023-11-01 08:04 | Outpatient (BNVA) | payer OTHER, SELFPAY | PROVIDERS: PCP Internal Medicine; Visit Provider Surgery ==

== ENCOUNTER 2023-12-10 08:03 | Outpatient (AMB) | payer OTHER, SELFPAY ==
--- NOTE | 2023-12-10 11:46 | MHC.OFFVISWM ---
Intake VS Expanded 12/10/23 11:52 Height 5 ft 6 in Weight 226 lb BMI 36.5 Body Fat % 45.9 Body Fat Mass 103.7 Fat Free Mass 122.2 Visceral Fat Rating 18 Body Water % 37.1 Body Water Mass 83.8 Basal Metabolic Rate/Score 1,567 Intake Visit Reasons: TV Pre Op LSG 12/20/23 Allergies No Known Allergies Allergy (Verified 12/10/23 11:46) Medication List - Last Reconciled 12/10/23 by Al Garner MD cholecalciferol (vitamin D3) 125 mcg PO DAILY desog-e.estradiol/e.estradiol 0.15-0.02 mgx21 /0.01 mg x 5 1 tab PO DAILY ondansetron 4 mg PO Q12H pantoprazole 40 mg PO DAILY PNV #[id number] acid-omega3 30 mg iron-10 mg iron-1 mg caps PO polyethylene glycol 3350 (Miralax) 17 grams PO DAILY sucralfate 10 mL PO BID thiamine HCl (vitamin B1) 100 mg PO DAILY zinc gluconate 10 mg PO DAILY HPI TV Pre Op LSG 12/20/23 HPI Details Start time: 11.43am, End time: 12.03pm ?I spent 15 minutes speaking with the patient on the phone plus an additional 5 minutes reviewing and updating records for a total of 20 minutes HPI Comments History of Present Illness Details Overall weight loss: 17.2lbs, or 7.07% TBWL Is doing 2 Pure protein shakes (1/2 scoop in almond milk), 2 Zone Perfect protein bars and one meal (8 forks of meat and 8 forks of salad or vegetables) Exercise: treadmill for 300 calories x 5/week [facility] Medical History (Updated 10/15/23 @ 08:52 by Fátima Alvarenga) Non-insulin dependent type 2 diabetes mellitus Morbid obesity Lumbar pain No known health problems Surgical History No pertinent past surgical history Family History Father Diabetes mellitus Heart problem Mother Family history of thyroid problem Brother No problems noted. Maternal Grandmother Breast cancer Social History Household Members: Significant Other Housing: Apartment Alcohol intake: current Alcohol intake frequency: holidays/special occasions only Alcohol type: wine Patient Tobacco Use Status: Never used Tobacco e-Cigarette/Vaping Use: Never Used Second Hand Smoke Exposure: No service: No Current occupational status: employed Current occupation: [employer] Current occupational exposures/hazards: No Sexual orientation: Straight/Heterosexual Gender identity: Female Cognitive needs: No Hearing needs: No Vision needs: Yes Assessment & Plan Assessment & Plan (1) Obesity: Code(s): E66.9 - Obesity, unspecified Qualifiers: Obesity type: due to excess calories Obesity classification: adult class 2 (BMI 35 - 39.9) Serious obesity comorbidity presence: with serious comorbidity Body mass index: BMI 38.0-38.9 Qualified Code(s): E66.01 - Morbid (severe) obesity due to excess calories; Z68.38 - Body mass index [BMI] 38.0-38.9, adult Plan: 1. Plan for lap sleeve gastrectomy including upper GI endoscopy. All tests has been completed and reviewed and the patient is cleared for the surgery. ?If diaphragmatic or ventral hernias are present at time of surgery, these will be repaired laparoscopically as well. Risks and complications were discussed in detail including possible conversion to an open procedure, anastomotic leak, bleeding requiring transfusion, small bowel obstruction, , DVT and pulmonary embolism, cardiac, or pulmonary complications, as termite control service representative complications such as anastomotic ulcer, insufficient weight loss and vitamin deficiencies. I emphasized the importance of close follow-up, adherence to instructions and good communication. So far she has proven to be an excellent communicator and very compliant with all our directions accomplishing a great weight loss. I believe that she is an excellent candidate and she is ready. 2. Preop prescriptions were provided and explained the purpose of each one. Need to be purchased preop. Start Pantoprazole now as you get it from the pharmacy, 1 pill per day. Sucralfate and Zofran are for after surgery as needed. 3. Bowel prep: please do 7 packets ?of Miralax mixing each one with a an 8oz glass of water, crystal light, gatorade zero, or propel ?on 12/18/23 and the same amount on 12/19/23. The Miralax you begin with one packet at a time in 8oz water or crystal light, gatorade zero, or propel ?as early in the day as you can and you do them back to back until you finish them. Continue the protein shakes during? the bowel prep. 4. Needs to purchase 1oz medicine cups . 5. Needs to purchase Children's liquid Tylenol for postop pain control. 6. She needs to stop the control pill as of tomorrow and not re-start it until 01/19/24. Avoid aspirin, motrin, Advil, Aleve, Ibuprofen, Naproxyn. Tylenol is OK. 7. She needs to purchase the Celebrate 4:1 protein shakes from the hospital's gift shop. 8. Will do basic preop blood work-up any day between Sunday12/11/23 and Sunday12/14/23 fasting for 12 hours and is scheduled to see the Anesthesiologist prior to the day of surgery. 9. Importance of adherence to postop folllow-up and recommendations was underscored and she understands that. 10. Continue to avoid food and bars and continue with 4 ?Pure protein shakes (1/2 scoop in 8oz almond milk) at 9am-11am, 12pm-2pm, 3pm-5pm, 6pm-8pm and one more Pure protein shake with ONE scoop in 8oz of almond milk at 8pm-10pm 11. No soups, broths or V8 12. The patient's?medical?history has been reviewed and they are considered low risk for post op DVT and therefore DVT prophylaxis is not considered necessary. Travel after surgery was reviewed. The patient has not disclosed any travel plans during the first 30 days after surgery and they have been advised that within the first 30 days after surgery any bus, plane, train or car travel over 2 hours in duration is contraindicated due to the possibility of developing blood clots from immobility. Any travel, needs to include periods of ambulation of 10 minutes in duration every 2 hours.? Patient was instructed to discuss any plans for travel during this period with their bariatric surgeon.? 13. Please take at the day of surgery the following medications: NONE 14. Stop any control pills and don't use them for one month after surgery 15. Absolutely no smoking or vaping, or marijuana until the surgery and for at least the first 4 weeks. Only nicotine patches are allowed. 16. Send me weight measurements on and then on 12/20/23 the day of surgery before you go to the hospital. 17. Avoid any steroids by mouth for any reason. Let me know if someone prescribes them to you 18. These instructions supersede anything else you read in the handbook, anything you watched in videos or classes or you were told by any other provider. If there is any conflict, you follow the above instructions and nothing else. Orders: Orders Comprehensive Met. Panel Today E66.9 - Obesity, unspecified TSH reflex Free T4 Today E66.9 - Obesity, unspecified Prothrombin Time INR Today E66.9 - Obesity, unspecified Hemoglobin A1c Today E66.9 - Obesity, unspecified Partial Thromboplastin Time Today E66.9 - Obesity, unspecified C Reactive Protein Today E66.9 - Obesity, unspecified Lipid Panel Today E66.9 - Obesity, unspecified Type and Screen Today E66.9 - Obesity, unspecified Complete Blood Count Auto Diff Today E66.9 - Obesity, unspecified Insulin Today E66.9 - Obesity, unspecified Medications: New pantoprazole 40 mg PO DAILY 90 tabs 0RF K21.9 - Gastro-esophageal reflux disease without esophagitis sucralfate 10 mL PO BID 600 mL 2RF K21.9 - Gastro-esophageal reflux disease without esophagitis ondansetron Only take one every 12 hours as needed if you have nausea 4 mg PO Q12H 20 tabs 0RF nausea and vomiting R11.0 - Nausea polyethylene glycol 3350 (Miralax) Mix each packet with 8oz of water, Crystal light, or Gatorade zero, or Propel and do 7 packets on 12/18/23 and another 7 packets on 12/19/23 17 grams PO DAILY 14 ea 0RF Z01.818 - Encounter for other preprocedural examination Telehealth Telehealth Location of provider rendering services: practice address Location of patient: address on file Patient Identification confirmed using: Name, : Yes Telehealth method: voice only Patient verbally consented to treatment: Yes Patient verbally consented to billing insurance company: Yes Patient informed of any privacy concerns related to visit: Yes Minutes spent on Phone/Video with Pt.: 20 Coding Level of Care Code Tele Est Pt Level 3 (25655) Diagnoses Class 2 severe obesity due to excess calories with serious comorbidity and body mass index (BMI) of 38.0 to 38.9 in adult E66.01; Z68.38 Obesity type: due to excess calories Obesity classification: adult class 2 (BMI 35 - 39.9) Serious obesity comorbidity presence: with serious comorbidity Body mass index: BMI 38.0-38.9 Time Spent (min) 20
[2023-12-10 11:52] VITALS: BMI 36.5
== END 2023-12-10 12:04 | disposition home or self-care (01) ==
LOC: HO.HBS 08:03
PROVIDERS: PCP Internal Medicine; Visit Provider Surgery
DX: E66.01 Morbid (severe) obesity due to excess calories (principal); Z68.38 Body mass index [BMI] 38.0-38.9, adult
CPT/HCPCS: 99213

== ENCOUNTER → 2023-12-10 08:03 | Outpatient (BNVA) | payer OTHER, SELFPAY | PROVIDERS: PCP Internal Medicine; Visit Provider Surgery ==

== ENCOUNTER 2023-12-11 07:02 | Outpatient (REF) | payer OTHER, SELFPAY ==
[2023-12-11 08:12] LABS: MANUAL DIFF FLAG NO
[2023-12-11 08:36] LABS: Basophils Percent Auto 0.2 % (0-2); Eosinophils Percent Auto 0.8 % (0-4); Hematocrit 41.2 % (37.0-47.0); Hemoglobin 12.8 g/dl (12.0-16.0); Imm Gran Abs Auto 0.01 X10*3/uL (0.00-0.03); Imm Gran Pct Auto 0.2 % (0.0-0.4); Mean Corpuscular HGB Conc 31.1 g/dl (31.0-35.0); Mean Corpuscular Volume 80.5 fL (80.0-98.0); Mean Platelet Volume 10.2 fL (9.4-12.3); Monocytes Absolute Auto 0.4 X10*3/uL (0.1-1.2); Monocytes Percent Auto 7.5 % (2-11); Neutrophils Absolute Auto 2.6 x10*3/uL (2.0-8.3); Neutrophils Percent Auto 51.3 % (45-73); Platelet Count 383 X10*3/uL (160-400); Red Blood Count 5.12 X10*6/uL (4.20-5.50); Red Cell Distribution Width 14.8 % (11.0-16.0); White Blood Count 5.1 X10*3/uL (4.8-10.8)
[2023-12-11 08:40] LABS: Prothrombin Time 12.4 SEC (11.1-13.3)
[2023-12-11 08:43] LABS: Partial Thromboplastin Time 34.8 SEC (26.0-36.8)
[2023-12-11 08:49] LABS: Estimated Average Glucose 103 mg/dL; Hemoglobin A1c % 5.2 % (<6.0)
[2023-12-11 09:18] LABS: Alanine Aminotransferase 26 U/L (0-31); Albumin Level 4.5 g/dL (3.5-5.0); Alkaline Phosphatase 62 U/L (39-117); Anion Gap 14 (12-20); Aspartate Amino Transferase 26 U/L (5-31); Bilirubin Total 0.6 mg/dL (0.0-1.0); Blood Urea Nitrogen 8 mg/dL (9-16); C Reactive Protein 0.95 mg/dL (< or = 0.50); Calcium 9.9 mg/dL (8.4-10.2); Carbon Dioxide 24 mmol/L (22-29); Chloride 106 mmol/L (96-108); Cholesterol 147 mg/dL (<200); Estimated Glomerular Filt Rate > 60; Glucose Random 96 mg/dL (60-115); HDL Cholesterol 47 mg/dL (>40); LDL Cholesterol Calculated 87 mg/dL (<100); Potassium 3.9 mmol/L (3.3-5.1); Sodium 140 mmol/L (135-145); Triglycerides 69 mg/dL (<150)
[2023-12-11 09:39] LABS: TSH reflex Free T4 0.96 uIU/mL (0.32-4.0)
[2023-12-11 10:42] LABS: Insulin 11 uU/mL (2-29)
== END 2023-12-11 07:03 | disposition home or self-care (01) ==
LOC: HO.LAB 07:02
PROVIDERS: PCP Internal Medicine; Visit Provider Surgery
DX: E66.9 Obesity, unspecified (principal)
CPT/HCPCS: 36415; 80053; 80061; 83036; 83525; 84443; 85025; 85610; 85730; 86140

== ENCOUNTER 2023-12-20 05:53 | Inpatient (IN) | payer OTHER, SELFPAY ==
[2023-12-11 10:56] VITALS: BMI 36.5
--- NOTE | 2023-12-18 12:38 | P.CONAN_ITS ---
Documented by User: Elizabeth Drake NP 12/18/23 12:39 HPI - Anesthesia Eval Consult details Narrative: 28yo F for Gastrectomy Sleeve-EGD, possible diaphragmatic hernia, possible ventral hernia, possible open PMFSH Active Problems Active Problems: All Active Problems Adjustment disorder, unspecified (Acute) Zinc deficiency (Acute) Vitamin B1 deficiency (Acute) Vitamin D deficiency (Acute) Elevated alanine aminotransferase (ALT) level (Acute) Cervical cancer screening (Acute) Acanthosis nigricans (Acute) Hirsutism (Acute) Hypovitaminosis D (Acute) BMI 39.0-39.9,adult (Acute) Obesity (Acute) Impaired glucose tolerance (Acute) Vitamin A deficiency (Acute) Binge-eating disorder, mild (Acute) Major depressive disorder, recurrent, mild (Acute) Body mass index (BMI) of 40.1 to 44.9 in adult (Acute) Anxiety and depression (Acute) Amenorrhea (Acute) Physical exam (Acute) Non-insulin dependent type 2 diabetes mellitus (Acute) Morbid obesity (Acute) Lumbar pain (Acute) Past Medical History Medical History Back pain GERD (gastroesophageal reflux disease) Depression Murmur Non-insulin dependent type 2 diabetes mellitus Morbid obesity Lumbar pain Family History Family History Father Diabetes mellitus Heart problem Mother Family history of thyroid problem Brother No problems noted. Maternal Grandmother Breast cancer Surgical History Surgical History No pertinent past surgical history Social History Social History Household Members: Significant Other Housing: Apartment Are you a primary healthcare facility administrator to a significant other at home: No Do you presently have visiting nurse or other home services: No Alcohol intake: current Alcohol intake frequency: does not drink Alcohol type: wine Patient Tobacco Use Status: Never used Tobacco e-Cigarette/Vaping Use: Never Used Second Hand Smoke Exposure: No Use of substances other than those prescribed or required for medical reasons: No Have you been hit, kicked, punched, or otherwise hurt by someone within the past year? If so, by whom?: No Advance Directives: No Advance Directives Information Provided: No Advance Directives on File: No Recently lost weight without trying: No Eating poorly because of decreased appetite: No Nutrition Risks: No Nutritional Risk Patient : No : No Poor oral hygiene: No service: No Current occupational status: employed Current occupation: [employer] Current occupational exposures/hazards: No Sexual orientation: Straight/Heterosexual Gender identity: Female Cognitive needs: No Hearing needs: No Vision needs: Yes Meds Allergies Allergy/AdvReac Type Severity Reaction Status Date / Time No Known Allergies Allergy Verified 12/20/23 06:31 Home Medications ?Medication ?Instructions ?Recorded ?Confirmed ?Last Taken ?Type ondansetron 4 mg disintegrating 4 mg PO Q12H PRN nausea and 12/20/23 12/11/23 Unknown History tablet vomiting pantoprazole 40 mg tablet,delayed 40 mg PO DAILY@0630 12/20/23 12/20/23 12/19/23 History release Exam Height,Weight and Vital Signs: Height 5 ft 6 in Weight 102.512 kg Pertinent Lab Results Pertinent Lab Results: Laboratory Tests 12/11/23 07:58 Blood Type O Positive Antibody Screen NEGATIVE Laboratory Tests 12/11/23 08:01 WBC 5.1 Hgb 12.8 Hct 41.2 Plt Count 383 Sodium 140 Potassium 3.9 Chloride 106 Carbon Dioxide 24 BUN 8 L Creatinine 0.80 Narrative Narrative: EKG 09/2023 Vent. Rate : 074 BPM Atrial Rate : 074 BPM P-R Int : 164 ms QRS Dur : 092 ms QT Int : 392 ms P-R-T Axes : 026 -01 024 degrees QTc Int : 435 ms Normal sinus rhythm Normal ECG When compared with ECG of 20-DEC-2021 07:30, No significant change was found Assessment and Plan Assessment Anesthesia Assessment: Chart Reviewed Documented by User: Analia Brito MD 12/20/23 07:33 [facility] Past Medical History Medical History Back pain GERD (gastroesophageal reflux disease) Depression Murmur Non-insulin dependent type 2 diabetes mellitus Morbid obesity Lumbar pain Family History Family History Father Diabetes mellitus Heart problem Mother Family history of thyroid problem Brother No problems noted. Maternal Grandmother Breast cancer Surgical History Surgical History No pertinent past surgical history History of Problems with Anesthesia: No Social History Social History Household Members: Significant Other Housing: Apartment Are you a primary healthcare facility administrator to a significant other at home: No Do you presently have visiting nurse or other home services: No Alcohol intake: current Alcohol intake frequency: does not drink Alcohol type: wine Patient Tobacco Use Status: Never used Tobacco e-Cigarette/Vaping Use: Never Used Second Hand Smoke Exposure: No Use of substances other than those prescribed or required for medical reasons: No Have you been hit, kicked, punched, or otherwise hurt by someone within the past year? If so, by whom?: No Advance Directives: No Advance Directives Information Provided: No Advance Directives on File: No Recently lost weight without trying: No Eating poorly because of decreased appetite: No Nutrition Risks: No Nutritional Risk Patient : No : No Poor oral hygiene: No service: No Current occupational status: employed Current occupation: [employer] Current occupational exposures/hazards: No Sexual orientation: Straight/Heterosexual Gender identity: Female Cognitive needs: No Hearing needs: No Vision needs: Yes Meds Allergies Allergy/AdvReac Type Severity Reaction Status Date / Time No Known Allergies Allergy Verified 12/20/23 06:31 Home Medications ?Medication ?Instructions ?Recorded ?Confirmed ?Last Taken ?Type ondansetron 4 mg disintegrating 4 mg PO Q12H PRN nausea and 12/20/23 12/11/23 Unknown History tablet vomiting pantoprazole 40 mg tablet,delayed 40 mg PO DAILY@0630 12/20/23 12/20/23 12/19/23 History release Exam Airway Mallampati Class: II TM Dist: >3cm Neck ROM: Full Loose/Missing/Broken Teeth: No Heart: RRR Lungs: CTA Assessment and Plan Assessment Anesthesia Assessment: Anesthesia Plan Discussed Final Anesthetic Review History of Problems with Anesthesia: No NPO: Yes ASA Class: II Final Preanesthetic Review: Meds/Allgs Chart Reviewed, Consent Obtained/Reviewed and Anes Risks/Benef Reviewed Patient Risk: Low Procedure Risk: Intermediate Anesthetic Plan Anesthetic Plan: GA Disposition: Standard PACU
[2023-12-20] VITALS (14 sets, daily range): BP systolic 112–135; BP diastolic 56–77; PULSE 64–87; RESP 16–20; TEMP 35.8–36.8; O2SAT 94–100; BMI 36.5
[2023-12-20] MEDS: Aprepitant 32 MG/4.4 ML VIAL IVPUSH (06:33)
[2023-12-20] MEDS: Lactated Ringers 1,000 ML 999 ML IV (06:33)
[2023-12-20] MEDS: Lactated Ringers 1,000 ML 100 ML IVCONT ×3 (06:34→22:13)
[2023-12-20 06:40] LABS: UPreg QC Valid YES; Urine Pregnancy NEGATIVE (NEGATIVE)
[2023-12-20 06:41] LABS: Glucose, Whole Blood 99 mg/dL (60-115)
--- NOTE | 2023-12-20 06:46 | PHA.MEDREC ---
Pharmacy Consult ? Medication Reconciliation Pharmacy has completed the medication reconciliation. Reviewed med rec done by nursing
--- NOTE | 2023-12-20 07:41 | MHC.SHP ---
Pre-Procedural Eval Section A - 24 Hr Update-Section A only Date of Service: 12/20/23 The patient is an INPATIENT: Yes The patient has been examined within 24 hours of the surgical procedure. The History & Physical has been completed within 30 days and I have reviewed it.: Yes Section B - Complete if H&P > 30 days Chief Complaint: Obesity Relevant Family History (Specify if Yes): No Relevant Social History: None Present Medications: None Medical History: No relevant PMH History of Previous Operations: No relevant previous surgery Allergies: Allergies Allergy/AdvReac Type Severity Reaction Status Date / Time No Known Allergies Allergy Verified 12/20/23 06:31 Review of Systems Sugical H&P ROS: Negative: Constitution, Cardiovascular, Respiratory, Neurological, Psychiatric, Hem-Onc, Allergic/Immunologic, Gastrointestinal, Genitourinary, Musculoskeletal, Integumentary, Endocrine and Eyes/Ears/Nose/Throat Exam Surgical H&P Exam: Normal: HEENT, Normal: Heart, Normal: Lungs, Normal: Extremities, Normal: Abdomen, Normal: Skin and Normal: Neurological Plan Diagnosis/Plan: Unchanged I have reviewed the history and physical and performed a pertinent physical examination on my patient. No changes have occurred unless specified. Time Spent With Patient Time: Total time managing care of this patient today ____ minutes.
--- NOTE | 2023-12-20 07:42 | PM.OP ---
Brief Operative Note Date of Service: 12/20/23 Pre-op diagnosis: Severe obesity with comorbidities (see below) Post-op diagnosis: same (& retrogastric adhesions) Procedure: INITIAL PATIENT BMI ON PRESENTATION AT OUR OFFICE: 40 kg/m2 LAST BMI BEFORE SURGERY: 36.6 kg/m2 COMORBIDITIES: non-insulin dependent diabetes, back pain, depression, GERD, liver steatosis, liver fibrosis ?The patient presented to the Weight Management Program with significant obesity that was negatively impacting the patient's comorbidities as listed above.? The program is a phased program with a special focus on preoperative medical weight management to promote substantial weight loss and prepare the patients for the second phase of the program: bariatric surgery. The patient participated in an intensive weekly lifestyle ?intervention and exercise program during which the patient ?has lost between the initial office visit and the last preoperative visit 18.4lbs, or 7.54% of initial actual body weight. It was deemed appropriate for the patient to now have bariatric surgery. In light of the current Covid-19 pandemic and the well documented strong association of obesity and increased risk of worse outcomes if infected with Covid-19 (REFERENCES:https://pubmed.ncbi.nlm.nih.gov/69511485/,?https://pubmed.ncbi.nlm.nih.gov/39044684/), any delay in undergoing bariatric surgery may lead to the patient's worsening health condition and increased?risk of more severe Covid-19 disease if infected. In addition a recent?study from [facility] published in [facility] on 09/05/2021 ([email or web address]) found that, among patients with obesity, substantial weight loss achieved with surgery was associated with improved outcomes of COVID-19 infection. The findings suggest that obesity can be a modifiable risk factor for the severity of COVID-19 infection. In addition, the patient met the BMI-criteria for bariatric surgery based on the BMI on initial presentation. The patient should not be penalized for achieving such weight loss because ?it is not sustainable long-term without surgical intervention and it was achieved in preparation for bariatric surgery ?under my direction and based on my published research ([email or web address]).[email or web address] and?[email or web address].soard.org/article/[email or web address]/pdf) ?that a 10% preoperative weight loss improves long-term weight loss after surgery and reduces perioperative complications.? Insurance carriers such as [facility] have endorsed my recommendations ?and have included in their policies criteria to include a 10% preoperative weight loss requirement. PROCEDURE: Esophago-gastroscopy, laparoscopic lysis of adhesions, laparoscopic sleeve gastrectomy and laparoscopic gastropexy INDICATIONS: This is a 28 year-old female who was electively scheduled for laparoscopic, possibly open sleeve gastrectomy. The risks and complications of the procedure were discussed with the patient in advance, particularly the possibility of ; pulmonary embolism; staple line leak; bleeding; GERD; cardiac, pulmonary, or renal complications; as well as long-term problems such as insufficient weight loss, vitamin deficiency, strictures, or ulcers. The patient understood all the risks, and was in agreement to proceed with surgery. DESCRIPTION OF PROCEDURE: After informed consent was obtained from the patient, the patient was given preoperative antibiotics, and was transferred to the operating room. After successful induction of general anesthesia, pneumatic compression devices were placed on both lower extremities. An upper endoscopy was performed next. The oropharynx and esophagus appeared to be within normal limits. There was no diaphragmatic hernia present consistent with the findings of the preoperative upper GI. The stomach was entered. Then after all fluid and air were suctioned and the stomach was fully decompressed, the scope was withdrawn and secured in the mid esophagus. The patient was then prepped and draped in the usual sterile manner, and abdominal access was established at the right upper quadrant with the Rosalina technique. A 12 mm blunt port was inserted, and the abdomen was insufflated with CO2 to a pressure of 15 mmHg. Under direct visualization, additional ports were placed, specifically two 5 mm Versi-step ports to the left upper quadrant, and a 5 mm Versi-Step port to the right upper quadrant. 1% lidocaine plain was used to infiltrate all port sites as well as all fascia defects. Following that, the patient was placed in a steep reverse Trendelenburg position. An additional 5 mm port was placed to the right flank for the Mediflex retractor that was used to retract the left lobe of the liver. The gastro-esophageal fat pad was opened with the ultrasonic device (Thunderbeat, Olympus) and the anterior esophagus and hiatus were exposed. The angle of His was opened with the ultrasonic device the fundus of the stomach from any diaphragmatic and splenic attachments. I then opened the gastrocolic ligament between the transverse colon and the greater curvature of the stomach with the ultrasonic device to enter the lesser sac and facilitate the ligation of the short gastric vessels. I started at a mid-point along the greater curvature and using the Thunderbeat, all short gastric vessels were divided all the way to the angle of His until the left anthony was completely dissected at its entirety. I then divided the gastro-colic ligament distally to a distance of about 3-4 cm proximal to the pylorus. There were extensive congenital adhesions between the pancreas and posterior gastric wall. Those were lysed completely with the ultrasonic device. Adhesiolysis took approximately 45 min to complete. The stomach was then divided transversely with one Endo RUSTY-45 purple and four RUSTY-60 articulating purple loads using the SIGNIA stapler and loads. Every effort was made that the gastric sleeve had a tubular shape and an even caliber throughout. Once the sleeve resection was completed, the staple line of the gastric sleeve was reinforced with Hemoclips. The resected stomach was retrieved without difficulty from the Rosalina port. A gastropexy was then performed in order to prevent postoperative GERD and partial gastric volvulus. Several interrupted 2.0 Surgidac sutures were placed between the sleeve's staple line and the previously divided greater omentum and gastro-colic ligament using the Endo-Stitch device. ?An upper endoscopy was performed. There was no narrowing at the GE junction. The scope was easily advanced all the way to the pylorus which was clearly visualized. There was no narrowing anywhere and the sleeve's caliber was even throughout. The sleeve's staple line was inspected and there was no evidence of ischemia, bleeding or dehiscence. At that point the gastroscope was withdrawn from the patient?s mouth while we were decompressing the bowel and the stomach from any remaining air. I looked into the lesser sac to see how the sleeve was situating and it was situating well. There was no bleeding from the staple line, spleen, or short gastric vessels. The Mediflex retractor was removed, and the undersurface of the liver was inspected and there was no bleeding. The patient was placed in supine position. I closed the fascial defect of the 12 mm port site with a figure of eight #1 Polysorb suture. Then 30cc Ropivacaine plain with 10 mg of Dexamethasone were used to infiltrate the fascial closure as well as all skin incisions. A total of 5ml Zynrelef was applied in the Rosalina port. At this point, the abdomen was deflated, all ports were removed under direct vision, and no bleeding was noted from any of the port sites. The skin incisions were irrigated with saline and were closed with 4-0 absorbable monofilament sutures. Steri-Strips and OpSites were used to cover all incisions. The patient was extubated and was transferred in stable condition to the recovery room for further care. I was present and performed all lepe parts of the procedure. Mr. King was the first crusher. There were no residents to assist with this case. Adriano Garner MD, PhD, FACS Surgeon: Al Garner MD Anesthesia: GETA, local and other (TAP block & 5ml Zynrelef) Was an Twister Hand used for this Procedure?: No Twister Hand: Reed King Estimated blood loss (mL): 10 IV fluids (mL): 2,500 Urine output (mL): 0 (No Devine to record output) Pathology: other (Stomach) Condition: stable Disposition: PACU
--- NOTE | 2023-12-20 07:45 | PM.PNGS ---
Subjective Subjective Date of Service: 12/21/23 Interval history: Feels well. Mild incisional pain. She is tolerating phase 1 bariatric diet Physical Exam Vital Signs: Vital Signs: Last Vital Signs Temp 96.5 F L 12/20/23 06:29 Pulse 87 12/20/23 06:29 Resp 16 12/20/23 06:29 BP 116/75 12/20/23 06:29 Pulse Ox 98 12/20/23 06:29 O2 Del Method Room Air 12/20/23 06:29 BMI result Body Mass Index 36.5 GI: Inspection: Yes normal to inspection, Yes incision (clean, dry and intact) and Yes obesity Palpation (GI): Soft to palpation Extrem: Right lower extremity: normal to inspection (no calf tenderness) Left lower extremity: normal to inspection (no calf tenderness) Objective Data Active Medications Albuterol Sulfate (Albuterol Sulfate (0.083%) 2.5 Mg/3 Ml Vial.Neb) 2.5 mg INHALE ONCE PRN PRN Reason: Wheezing Stop: 12/20/23 13:36 Fentanyl (Fentanyl Citrate/Pf 100 Mcg/2 Ml Vial) 25 mcg IVPUSH Q5M PRN; Protocol PRN Reason: Pain, Moderate(Pain Scale 4-6) Stop: 12/20/23 13:34 Hydromorphone HCl (Hydromorphone Hcl 0.5 Mg/0.5 Ml Syringe) 0.25 mg IVPUSH Q5M PRN; Protocol PRN Reason: Pain, Severe (Pain Scale 7-10) Stop: 12/20/23 13:34 Lactated Ringer's (Lr) 1,000 mls @ 999 mls/hr IV .Q1H1M [facility] Stop: 12/20/23 08:00 Last Admin: 12/20/23 06:33 Dose: 999 mls/hr Documented By: HORTENCIA Lactated Ringer's (Lr) 1,000 mls @ 100 mls/hr IVCONT .Q10H [facility] Last Admin: 12/20/23 06:34 Dose: 100 mls/hr Documented By: HORTENCIA Ondansetron HCl (Ondansetron Hcl 4 Mg/2 Ml Vial) 4 mg IVPUSH ONCE PRN PRN Reason: Nausea and Vomiting Stop: 12/20/23 13:36 Oxycodone HCl (Oxycodone Hcl Immed Release 5 Mg Tablet) 5 mg PO ONCE PRN PRN Reason: Pain, Severe (Pain Scale 7-10) Stop: 12/20/23 13:34 Labs 12/21/23 05:00 12/21/23 05:00 Labs: Laboratory Results - last 24 hr 12/20/23 12/20/23 06:05 06:36 POC Glucose 99 Urine Test NEGATIVE Procedures Date of Service Date of Service: 12/21/23 Progress Note: A&P Assessment and plan (1) Obesity: Status: Acute Assessment and Plan: s/p laparoscopic sleeve gastrectomy, lysis of adhesions and gastropexy Doing well Will check am labs and if OK the patient will be discharged home (2) BMI 36.0-36.9,adult: Status: Acute (3) GERD (gastroesophageal reflux disease): Status: Acute (4) Steatosis, liver: Status: Acute (5) Liver fibrosis: Status: Acute (6) S/P laparoscopic sleeve gastrectomy: Status: Acute (7) Congenital intra-abdominal adhesions: Status: Acute Time Spent With Patient Time: Total time managing care of this patient today ____ minutes. Quality Stroke Does the patient have a stroke diagnosis?: No VTE Prior VTE?: No VTE Risk Level:: Surgical - moderate VTE Device Contraindication: N/A - Device Ordered VTE Drug Contraindication: Treatment Not Indicated
--- NOTE | 2023-12-20 10:04 | PM.DS ---
DS: Providers Provider Date of Service: 12/21/23 Date of admission: 12/20/23 05:53 Primary care physician: Adriane Snow MD DS: Diagnosis Discharge Diagnosis (1) Obesity: Status: Acute (2) BMI 36.0-36.9,adult: Status: Acute (3) GERD (gastroesophageal reflux disease): Status: Acute (4) Steatosis, liver: Status: Acute (5) Liver fibrosis: Status: Acute DS: Summary Hospital Course Hospital Course: ADMITTING DIAGNOSIS: obesity, dm, anxiety, depression ? DISCHARGE DIAGNOSIS: same, s/p laparoscopic sleeve gastrectomy ? PAST SURGICAL HISTORY: none ? PROCEDURE: upper endoscopy, laparoscopic sleeve gastrectomy ? DISCHARGE SUMMARY: ? History of Present Illness: ? The patient is a?28 year-old woman with a BMI of?39.9 kg/m2 and associated co-morbidities as described above. The patient had extensive work-up,lost?22.3 lbs preoperatively and was electively scheduled for laparoscopic, possible open sleeve gastrectomy and gastropexy. Risks and complications of the surgery were discussed with the patient in advance, particularly the possibility of , pulmonary embolism, anastomotic leak, bleeding, bowel injury, GERD, cardiac, renal or pulmonary complications. The patient understood all the risks and was in agreement with the surgical plan. ? Hospital Course: ? The patient underwent an uneventful laparoscopic sleeve gastrectomy with gastropexy on the day of admission. Postoperatively, the patient was transferred to the surgical floor. The patient received IV Acetaminophen and IV dilaudid for pain control. Patient was started on bariatric phase 1 diet POD #0. On postoperative day one, the patient was feeling well without nausea, vomiting, fevers, or tachycardia. The patient had some mild incisional pain and the abdomen was soft. ? On the morning of postoperative day one, the patient was continued on 1 ounce of water or ice every half hour. During the day, the patient did fairly well, having some incisional pain, but able to ambulate adequately and to tolerate liquids well. ? Since the patient is doing well, we decided that the patient was ready to be discharged. The patient was given instructions to follow-up with me next week and to call my office for any fever over 101, persistent abdominal pain, nausea, vomiting, GERD, symptoms of DVT such as calf tenderness, or leg swelling, or pulmonary embolism such as chest pain or shortness of breath. The patient was also instructed to drink 40-60 ounces of liquids per day using the 1-ounce cups. The patient had been given prescriptions for Tylenol for pain, Zofran prn for nausea, and pantoprazole and carafate previously. The patient was encouraged to ambulate and use the incentive spirometer. The patient was allowed to shower, but no baths, and encouraged to stay active at home. All of these instructions were given to the patient personally. All questions were answered and the patient understood all instructions, the instructions were also given to the patient in print. Time Attestation Total time managing care of this patient today: 25 mintues. Discharge Coordination Time (in mins): 25 Quality: Safe Use of Opioids Does Pt have an Active Cancer Diagnosis on the Problem List?: No Quality: Stroke Does the patient have a stroke diagnosis?: No Physical Exam Vital Signs: Vital Signs: Last Vital Signs Temp 96.5 F L 12/20/23 06:29 Pulse 87 12/20/23 06:29 Resp 16 12/20/23 06:29 BP 116/75 12/20/23 06:29 Pulse Ox 98 12/20/23 06:29 O2 Del Method Room Air 12/20/23 06:29 BMI result Body Mass Index 36.5 DS: Data Data Completed and Pending Pending studies at discharge: Pending at discharge 12/20/23 09:14 Surgical [PTH] Routine Labs on day of discharge: Laboratory Results - last 24 hr 12/20/23 12/20/23 06:05 06:36 POC Glucose 99 Urine Test NEGATIVE Discharge Plan Discharge Anticipated Discharge Date/Time: 12/21/23 10:00 Patient Disposition: Home, Self-Care Discharge Diagnosis: s/p laparoscopic sleeve gastrectomy Referrals: Adriane Hampton MD [Primary Care Provider] - 1 Week Discharge Medications: Continued pantoprazole 40 mg tablet,delayed release (DR/EC) 40 mg PO DAILY@0630 ondansetron 4 mg tablet,disintegrating 4 mg PO Q12H PRN (Reason: nausea and vomiting) Rx Instructions: Only take one every 12 hours as needed if you have nausea sucralfate 100 mg/mL suspension 10 ml PO BID Qty: 600 2RF Discontinued polyethylene glycol 3350 [Miralax] 17 gram powder in packet 17 g PO DAILY Qty: 14 0RF Rx Instructions: Mix each packet with 8oz of water, Crystal light, or Gatorade zero, or Propel and do 7 packets on 12/18/23 and another 7 packets on 12/19/23 Discharge Orders: Discharge Order (Routine); Ordered 12/21/23 Ordered By: Al Garner Activity on Discharge: No heavy lifting Stand Alone Forms: Patient Portal Discharge page Print Language: Ukrainian Care Plan Goals: weight loss Health Concerns: obesity Plan of Treatment: No tub baths, sex or returning to work until discussed at first post op appointment. No exercise, alcohol, tobacco or illegal drug use. Continue to use incentive spirometer hourly while awake. Walk in home for 5- 10 minutes every 2 hours during the first week. Follow all instructions in the bariatric handbook and call with any questions.Discharge Instructions 1. Please call your doctor or come back to the emergency room should any new symptoms arise. 2. You will receive a courtesy call from [facility] 24-48 hours after discharge. 3. Activity: abstain from alcohol, practice limited stair climbing, no bending, no driving, no exercise, no illicit substances, no lifting, no sex, no tub bath, no work. 4. Diet: continue as discussed with Dr. Garner. 5. Dressing Change/Wound Care: Your incision is covered by clear bandages and guaze underneath. If the area is tender, you may apply an ice pack for short intervals (no more than 20 minutes on, followed by at least 20 minutes off). Do not apply heat. Do not use creams, lotions, or topical antibiotics unless instructed to do so by your surgeon. These can cause infection or allergic reaction. 6. Call your doctor if: - Your temperature exceeds 101.5 F - You experience excessive pain or swelling - You have an unexpected reaction to medication - You have excessive bleeding - You experience continued vomiting/nausea - Your incision begins to separate - Your incision shows signs of infection such as increased redness, swelling, excessive pain, heat, or drainage (light blood or clear fluid is normal) 7. General instructions: No lifting greater than 5 lbs for 1 week and not more than 20lbs the next 3?weeks. No driving until seen at the office in 5-7 days after surgery. If you do not move your bowels in the next 2 days, please tell?Dr. Garner. Please walk around your home every hour or two to prevent blood clots from forming in your legs. You do not need to wake from sleeping to walk. Please sleep in a bed or couch to prevent kinking at the hips and knees. Please take your incentive spirometer (your lung senior sharepoint developer) home with you and use it for the next few days to prevent pneumonia. You may shower, no hot tubs, baths or swimming pools.?Please follow the post op diet instructions you are?given by Dr Garner? and text me daily at 5-6pm for an update.?If you have any issues or concerns or questions please communicate this to him via text.? The Celebrate shakes have all of the bariatric vitamins you need if you consume these shakes. If you are drinking other protein shakes, you will need to purchase the Celebrate multivitamins and calcium that are available in the hospital gift shop on the first floor of the main hospital.??Do not take anything without first discussing with Dr Garner. Please make sure you are consuming at least 40 ounces of fluids per day starting the?day AFTER your discharge from the hospital. Always drink 1-2 ml per minute using the 5ml?syringe. If you drink faster you may experience?bloating,?gas pain, burping, nausea or heartburn. In that case please slow down your pace and use the syringe to?understand better the?proper?pace and volume of drinking. Do not hesitate to contact the office with any questions at . The patient's medical history has been reviewed and they are considered low risk for post op DVT and therefore DVT prophylaxis is not considered necessary. Travel after surgery was reviewed. The patient has not disclosed any travel plans during the first 30 days after surgery and they have been advised that within the first 30 days after surgery any bus, plane, train or car travel over 2 hours in duration is contraindicated due to the possibility of developing blood clots from immobility. Any travel, needs to include periods of ambulation of 10 minutes in duration every 2 hours.? The patient was instructed to discuss any plans for travel during this period with their bariatric surgeon. Assessment: stable s/p laparoscopic sleeve gastrectomy Discharge Date/Time: 12/21/23 09:14
[2023-12-20 10:34] LABS: Hemoglobin 12.2 g/dl (12.0-16.0)
[2023-12-20 10:48] LABS: Anion Gap 10 (12-20); Blood Urea Nitrogen 5 mg/dL (9-16); Carbon Dioxide 24 mmol/L (22-29); Chloride 108 mmol/L (96-108); Estimated Glomerular Filt Rate > 60; Glucose Random 138 mg/dL (60-115); Potassium 4.2 mmol/L (3.3-5.1); Sodium 138 mmol/L (135-145)
[2023-12-20] MEDS: ceFAZolin Sodium/Dextrose,Iso 2 GM/50 ML PIGGYBACK IV (13:34)
[2023-12-20] MEDS: Acetaminophen 1,000 MG/100 ML PIGGYBACK 16.7 MG IV ×2 (14:34→20:46)
[2023-12-20] MEDS: ondansetron HCL 4 MG/2 ML VIAL IVPUSH (18:22)
[2023-12-20] MEDS: Metoclopramide HCl 10 MG/2 ML VIAL IVPUSH (19:18)
[2023-12-20] MEDS: 0.9 % Sodium Chloride Flush 3 ML SYRINGE IVFLUSH (19:19)
[2023-12-20] MEDS: Famotidine/PF 20 MG/2 ML VIAL IVPUSH (20:47)
[2023-12-21] MEDS: Acetaminophen 1,000 MG/100 ML PIGGYBACK 16.7 MG IV (02:57)
[2023-12-21 03:00] VITALS: BP 118/65; PULSE 81; RESP 16; TEMP 36.4; O2SAT 98
[2023-12-21 05:44] LABS: MANUAL DIFF FLAG NO
[2023-12-21 05:58] LABS: Basophils Percent Auto 0.1 % (0-2); Hematocrit 35.9 % (37.0-47.0); Hemoglobin 11.6 g/dl (12.0-16.0); Imm Gran Abs Auto 0.05 X10*3/uL (0.00-0.03); Imm Gran Pct Auto 0.5 % (0.0-0.4); Mean Corpuscular HGB Conc 32.3 g/dl (31.0-35.0); Mean Corpuscular Hemoglobin 25.1 pg (27.0-33.0); Mean Corpuscular Volume 77.7 fL (80.0-98.0); Mean Platelet Volume 10.5 fL (9.4-12.3); Monocytes Absolute Auto 0.6 X10*3/uL (0.1-1.2); Monocytes Percent Auto 6.2 % (2-11); Neutrophils Absolute Auto 8.1 x10*3/uL (2.0-8.3); Neutrophils Percent Auto 83.2 % (45-73); Platelet Count 290 X10*3/uL (160-400); Red Blood Count 4.62 X10*6/uL (4.20-5.50); Red Cell Distribution Width 15.4 % (11.0-16.0); White Blood Count 9.7 X10*3/uL (4.8-10.8)
[2023-12-21 06:04] LABS: Anion Gap 13 (12-20); Blood Urea Nitrogen 5 mg/dL (9-16); Calcium 9.3 mg/dL (8.4-10.2); Carbon Dioxide 23 mmol/L (22-29); Chloride 107 mmol/L (96-108); Creatinine Clr Calc Pharmacy 145.4; Estimated Glomerular Filt Rate > 60; Glucose Random 110 mg/dL (60-115); Potassium 3.9 mmol/L (3.3-5.1); Sodium 139 mmol/L (135-145)
--- NOTE | 2023-12-21 06:32 | PC.NURSE ---
pt c/o nausea feeling once given Reglan by eMar. pt said feels much better . walked to the hallway 3 times and passing the gas. afew times used br to urinate. afew sips. no issues at night.
[2023-12-21 07:00] VITALS: BP 119/65; PULSE 64; RESP 16; TEMP 36.1; O2SAT 95
[2023-12-21] MEDS: Famotidine/PF 20 MG/2 ML VIAL IVPUSH (07:48)
--- NOTE | 2023-12-21 09:39 | MHC.CM.PN ---
Patient from home w/ . Functionally independent. Reports she has a walker in the home to use post-op if needed. No services. PCP Adriane Snow MD No HCP - CM provided education and offered assistance, patient declined DP: Patient is medically cleared for dc home self care. is at bedside to transport.
--- NOTE | 2023-12-21 17:38 | HO.POSTANES ---
Post Anesthesia Evaluation Post Anesthesia Evaluation Date of Service: 12/21/23 Vital Signs: Vital Signs Temp Pulse Resp BP Pulse Ox O2 Del Method 12/21/23 07:34 Room Air 12/21/23 07:00 97.0 F 64 16 119/65 95 Room Air Anesthesia: General Endotracheal-GETA Mental Status: Awake Pain Control: Satisfactory Nausea/Vomiting: None Hydration: Adequate Anesthesia-Related Issues: No Anes. Related Issues
== END 2023-12-21 09:14 | disposition home or self-care (01) | DRG 620 ==
LOC: HO.SSSA 10:06 → HO.S3 10:48
PROVIDERS: Nurse Practitioner; Physician Assistant Surgical; Admitting Provider Surgery; PCP Internal Medicine; Visit Provider Surgery
PROC: (CPT 43845; principal; 2023-12-20 07:30)
DX: E66.01 Morbid (severe) obesity due to excess calories (principal); Q43.3 Congenital malformations of intestinal fixation; Z68.36 Body mass index [BMI] 36.0-36.9, adult; E11.9 Type 2 diabetes mellitus without complications; M54.9 Dorsalgia, unspecified; F32.A Depression, unspecified; K21.9 Gastro-esophageal reflux disease without esophagitis; K76.0 Fatty (change of) liver, not elsewhere classified; K74.00 Hepatic fibrosis, unspecified; Z79.899 Other long term (current) drug therapy
CPT/HCPCS: 36415; 80048; 81025; 82947; 85014; 85018; 85025; 86850; 86900; 86901; 88304; 88305; 88307; 88342; A4649; C9088; C9145; J0131; J0690; J1100; J1170; J2250; J2371; J2405; J2704; J2765; J2795; J3010; J7120

== ENCOUNTER → 2023-12-20 05:53 | Outpatient (BNV) | payer OTHER, SELFPAY | PROVIDERS: Admitting Provider Surgery; PCP Internal Medicine; Visit Provider Surgery | DX: E66.01 Morbid (severe) obesity due to excess calories (principal); Z68.36 Body mass index [BMI] 36.0-36.9, adult; Z90.3 Acquired absence of stomach [part of]; Z98.84 Bariatric surgery status | CPT/HCPCS: 43659; 43775; 99024; 99499 ==

== ENCOUNTER 2023-12-25 10:22 | Outpatient (AMB) | payer OTHER, SELFPAY ==
--- NOTE | 2023-12-25 10:50 | A.OFFVIS_ITS ---
Intake VS Expanded 12/25/23 11:04 BP 114/63 Blood Pressure Location Rt brachial Blood Pressure Position Sitting Pulse 92 Pulse Source Pulse Oximeter Temp 96.5 F L Temperature Source Tympanic Pulse Oximetry 100 Oxygen Delivery Method Room Air Height 5 ft 6 in Weight 218 lb 3.2 oz BMI 35.2 Body Fat % 42.4 Body Fat Mass 92.4 Fat Free Mass 125.6 Visceral Fat Rating 9.0 Body Water % 41.4 Body Water Mass 90.2 Muscle Mass/Score 119.2 Basal Metabolic Rate/Score 1,781 Intake Visit Reasons: (OV) PO LSG 12/20/23 Allergies No Known Allergies Allergy (Verified 12/25/23 11:07) HPI HPI Comments History of Present Illness Details 28-year-old female returns to the office today in follow-up. She is 5 days post sleeve gastrectomy performed on 12/20/23. She is tolerating 3 celebrate 4 in 1 shakes with 1 scoop each in approximately 40 oz of fluid per day. She is moved her bowels and has no complaints of pain. [facility] Medical History (Updated 12/20/23 @ 10:07 by Al Garner MD) Back pain GERD (gastroesophageal reflux disease) Depression Murmur Non-insulin dependent type 2 diabetes mellitus Morbid obesity Lumbar pain Surgical History Hx of laparoscopic partial gastrectomy Family History Father Diabetes mellitus Heart problem Mother Family history of thyroid problem Brother No problems noted. Maternal Grandmother Breast cancer Social History Household Members: Significant Other Housing: Apartment Are you a primary team primary care physician to a significant other at home: No Do you presently have visiting nurse or other home services: No Alcohol intake: current Alcohol intake frequency: does not drink Alcohol type: wine Patient Tobacco Use Status: Never used Tobacco e-Cigarette/Vaping Use: Never Used Second Hand Smoke Exposure: No service: No Current occupational status: employed Current occupation: [employer] Current occupational exposures/hazards: No Sexual orientation: Straight/Heterosexual Gender identity: Female Cognitive needs: No Hearing needs: No Vision needs: Yes Physical Exam Vital Signs: Last Vital Signs Temp 96.5 F L 12/25/23 11:04 Pulse 92 12/25/23 11:04 BP 114/63 12/25/23 11:04 Pulse Ox 100 12/25/23 11:04 Oxygen Delivery Method Room Air 12/25/23 11:04 BMI result Body Mass Index 35.2 GI Inspection: Yes incision (c/d/i) Assessment & Plan Assessment & Plan (1) S/P laparoscopic sleeve gastrectomy: Code(s): Z98.84 - Bariatric surgery status Plan: POD 5 s/p LSG on 12/20/[address] Garner Weight loss prior to surgery was 22.3 pounds or 8.9 % TBWL. Original weight on 09/17/2023 was 247.8 pounds and op weight was 225.5 pounds. Be sure to text Dr Garner exactly 1 week after surgery your weight from your home scale so he can adjust your meal plan. Continue meal plan until f/u lorin Mcbride in 2 weeks May shower, no submersion in bath for another week Continue abdominal binder with activity and exercise for the next 2 weeks. Exercise prior to surgery was bike and treadmill, may resume No abdominal exercises for 6 weeks post operatively Will be emailed link to post op video for review Reminded of the pace of drinking, 2 mL per minute, 1 oz/15 min. Coding Level of Care Code Global (31266) Diagnoses S/P laparoscopic sleeve gastrectomy Z98.84
[2023-12-25 11:04] VITALS: BP 114/63; PULSE 92; TEMP 35.8; O2SAT 100; BMI 35.2
== END 2023-12-25 11:47 | disposition home or self-care (01) ==
PROVIDERS: PCP Internal Medicine; Visit Provider Physician Assistant Surgical
DX: E66.9 Obesity, unspecified (principal); Z68.36 Body mass index [BMI] 36.0-36.9, adult; Z90.3 Acquired absence of stomach [part of]; Z98.84 Bariatric surgery status
CPT/HCPCS: 99024

== ENCOUNTER → 2023-12-25 10:22 | Outpatient (BNVA) | payer OTHER, SELFPAY | PROVIDERS: PCP Internal Medicine; Visit Provider Physician Assistant Surgical ==

== ENCOUNTER 2024-01-02 08:17 | Outpatient (AMB) | payer OTHER, SELFPAY ==
--- NOTE | 2024-01-02 08:19 | MHC.PC.OV ---
Vital Signs 01/02/24 08:21 Height 5 ft 6 in Weight 218 lb BMI 35.2 BP 108/70 Blood Pressure Location Lt brachial Position Sitting Intake Visit Reasons: Sharp incessant pain lower left side Intake Note: Patient here for right side lower abdominal pain Milliner Helper Required: No Accompanied by: Self / Same As Patient Allergies No Known Allergies Allergy (Verified 01/02/24 08:49) Medication List - Last Reconciled 01/02/24 by Adriane Snow MD ondansetron 4 mg PO Q12H PRN pantoprazole 40 mg PO DAILY@0630 sucralfate 10 mL PO BID Tobacco use date assessed: 01/02/24 Dental Screening Dental Screen Date: 09/27/23 HPI HPI Comments History of Present Illness Details This is a 28-year-old female with obesity, mild major depression in remission and GERD that complains of right upper quadrant abdominal pain that started after she had weight loss surgery 12/20/2023. The pain is intermittent in nature and is sharp when present and resolve on its own. She had an ultrasound of the abdomen done in October that showed fatty liver but no gallstones or any other abnormality that could explain this pain. Has tried acetaminophen with no relief. She is obese with a BMI of 35.2 and has been losing weight intentionally. Her depression is in remission. GERD has been stable with PPIs and Carafate. No chest pain or shortness of breath. [facility] Medical History (Updated 01/02/24 @ 09:45 by Adriane Snow MD) Cervical cancer screening BMI 39.0-39.9,adult Body mass index (BMI) of 40.1 to 44.9 in adult Physical exam Back pain GERD (gastroesophageal reflux disease) Depression Murmur Morbid obesity Lumbar pain Surgical History Hx of laparoscopic partial gastrectomy Family History Father Diabetes mellitus Heart problem Mother Family history of thyroid problem Brother No problems noted. Maternal Grandmother Breast cancer Social History Household Members: Significant Other Housing: Apartment Are you a primary health care facility administrator to a significant other at home: No Do you presently have visiting nurse or other home services: No Alcohol intake: current Alcohol intake frequency: does not drink Alcohol type: wine Patient Tobacco Use Status: Never used Tobacco e-Cigarette/Vaping Use: Never Used Second Hand Smoke Exposure: No service: No Current occupational status: employed Current occupation: [employer] Current occupational exposures/hazards: No Sexual orientation: Straight/Heterosexual Gender identity: Female Cognitive needs: No Hearing needs: No Vision needs: Yes Questionnaire Thrive Questionnaire Date Thrive assessed: 12/21/23 MARIE-7 AMB Questionnaire MARIE-7 Date MARIE - 7 assessed: 09/27/23 Source: Developed by Drs. Jb Simental, Kacey Hope, Ritesh Kaur and colleagues, with an educational el from [employer]. Review of Systems Const All systems reviewed & are unremarkable except as noted in HPI and below Card Denies chest pain at rest, Denies chest pain with activity, Denies edema, Denies irregular heart rhythm, Denies claudication, Denies dyspnea, Denies dyspnea on exertion, Denies orthopnea, Denies paroxysmal nocturnal dyspnea and Denies slow heart rate Resp Denies cough, Denies dyspnea and Denies dyspnea on exertion GI Reports abdominal pain, Denies change in bowel habits, Denies excessive flatus, Denies nausea and Denies vomiting Denies urinary incontinence, Denies urinary hesitancy and Denies urinary urgency Physical exam (Primary Care) Vital Signs: Last Vital Signs BP 108/70 01/02/24 08:21 BMI result Body Mass Index 35.2 Tobacco/Smoking Status: Tobacco use Status Tobacco use date assessed 01/02/24 01/02/24 08:28 Patient Tobacco Use Status Never used Tobacco 01/02/24 08:20 e-Cigarette/Vaping Use Never Used 01/02/24 08:20 Thrive Assessment: Date of Thrive Assessment Date Thrive assessed 12/21/23 01/02/24 08:20 Resp Effort & Inspection: normal respiratory effort Auscultation: clear to auscultation bilaterally Cardio Jugular venous distension: no JVD Rate: regular rate Rhythm: regular rhythm Heart sounds: S1 normal heart sound present and S2 normal heart sound present GI Inspection: Yes normal to inspection Palpation (GI): Soft to palpation and Tenderness to palpation present (GI) in the RUQ Auscultation: normal bowel sounds Extrem General: Yes full ROM Assessment and Plan Assessment & Plan (1) Right upper quadrant abdominal pain: Code(s): R10.11 - Right upper quadrant pain Plan: Ultrasound order. (2) GERD (gastroesophageal reflux disease): Code(s): K21.9 - Gastro-esophageal reflux disease without esophagitis Plan: Continue PPIs and Carafate. (3) BMI 35.0-35.9,adult: Code(s): Z68.35 - Body mass index [BMI] 35.0-35.9, adult Plan: Continue diet and exercise. BMI goal is less than 30. (4) Major depressive disorder, recurrent, mild: Code(s): F33.0 - Major depressive disorder, recurrent, mild Plan: In remission. No need for treatment at the moment. Orders: Orders US abdomen complete Today R10.11 - Right upper quadrant pain Coding Level of Care Code Est Pt Level 4 (02847) Diagnoses Right upper quadrant abdominal pain R10.11 GERD (gastroesophageal reflux disease) K21.9 BMI 35.0-35.9,adult Z68.35 Major depressive disorder, recurrent, mild F33.0 Time Spent (min) 23
[2024-01-02 08:21] VITALS: BP 108/70; BMI 35.2
== END 2024-01-02 08:58 | disposition home or self-care (01) ==
PROVIDERS: PCP Internal Medicine; Visit Provider Internal Medicine
DX: R10.11 Right upper quadrant pain (principal); K21.9 Gastro-esophageal reflux disease without esophagitis; Z68.35 Body mass index [BMI] 35.0-35.9, adult; F33.0 Major depressive disorder, recurrent, mild
CPT/HCPCS: 99214

== ENCOUNTER → 2024-01-07 10:05 | Outpatient (BNVA) | payer OTHER, SELFPAY | PROVIDERS: PCP Internal Medicine; Visit Provider Physician Assistant Surgical ==

== ENCOUNTER 2024-01-07 13:28 | Outpatient (AMB) | payer OTHER, SELFPAY ==
--- NOTE | 2024-01-07 12:05 | MHC.OFFVISWM ---
Intake Visit Reasons: PO LSG 12/20/23 Allergies No Known Allergies Allergy (Verified 01/07/24 10:39) HPI Comments Details: This?a?28?yo female who is s/p LSG without hiatal hernia repair on?12/20/2023. Presents for 3 week post op visit. Weight today is 211.4 pounds, with a BMI of 34.1. There has been a 36.4 pound weight loss,(initial weight 247.8 pounds) since starting the program on 09/17/2023 reflecting a 14.6% total body weight loss and a weight loss of 14.1 pounds since surgery (operative weight 225.5 pounds) reflecting a 6.2% TBWL since surgery. No complaints of nausea, emesis, abdominal pain or reflux. Reports infrequent but normal bowel movements every 1-2 days and uses stool softeners regularly. She states she is doing great. She is tolerating meal plan. Present meal plan includes: 2 celebrate 4 in 1 2 scoops in 8 oz almond milk, 8-10, 11-1 pure protein bar 4-6 drinking 40 oz daily ? Exercise routine includes: walking outside 300 calories [facility] Medical History (Updated 01/02/24 @ 09:45 by Adriane Snow MD) Cervical cancer screening BMI 39.0-39.9,adult Body mass index (BMI) of 40.1 to 44.9 in adult Physical exam Back pain GERD (gastroesophageal reflux disease) Depression Murmur Morbid obesity Lumbar pain Surgical History Hx of laparoscopic partial gastrectomy Family History Father Diabetes mellitus Heart problem Mother Family history of thyroid problem Brother No problems noted. Maternal Grandmother Breast cancer Social History Household Members: Significant Other Housing: Apartment Are you a primary patient care provider to a significant other at home: No Do you presently have visiting nurse or other home services: No Alcohol intake: current Alcohol intake frequency: does not drink Alcohol type: wine Patient Tobacco Use Status: Never used Tobacco e-Cigarette/Vaping Use: Never Used Second Hand Smoke Exposure: No service: No Current occupational status: employed Current occupation: [employer] Current occupational exposures/hazards: No Sexual orientation: Straight/Heterosexual Gender identity: Female Cognitive needs: No Hearing needs: No Vision needs: Yes Telehealth Telehealth Telehealth Platform: Telephone Location of provider rendering services: practice address Location of patient: address on file Patient Identification confirmed using: Name, : Yes Telehealth method: voice only Patient verbally consented to treatment: Yes Patient verbally consented to billing insurance company: Yes Patient informed of any privacy concerns related to visit: Yes Minutes spent on Phone/Video with Pt.: 12 Assessment & Plan Assessment & Plan (1) S/P laparoscopic sleeve gastrectomy: Code(s): Z98.84 - Bariatric surgery status Category: Surgical Plan: Patient making good progress in his satisfied with her current meal plan. We will continue as such. She has been encouraged to continue her exercise routine and we will have her return to the office in 3 weeks.
== END 2024-01-07 13:39 | disposition home or self-care (01) ==
LOC: HO.HBS 13:28
PROVIDERS: PCP Internal Medicine; Visit Provider Physician Assistant Surgical
DX: Z98.84 Bariatric surgery status (principal)
CPT/HCPCS: 99024

== ENCOUNTER 2024-01-18 07:47 | Outpatient (REF) | payer OTHER, SELFPAY ==
--- NOTE | ~2024-01-18 | US_ITS ---
EXAMINATION: US ABDOMEN COMPLETE CLINICAL INFORMATION: Right upper quadrant pain. COMPARISON: Ultrasound abdomen complete 10/12/2023 and 01/31/2022. TECHNIQUE: Real-time imaging of the abdominal viscera. FINDINGS: PANCREAS: Normal. ABDOMINAL AORTA: The proximal, mid, and distal segments are normal in caliber. INFERIOR VENA CAVA: Visualized portions are normal. LIVER: Liver is mildly enlarged measuring 17.7 cm in span, previously 18.5. The liver contour is normal. Moderately increased hepatic echogenicity which can be seen in the setting of hepatic steatosis or underlying liver disease similar to prior. No focal hepatic lesion. There is no intrahepatic biliary duct dilatation seen. GALLBLADDER: Normal. The gallbladder is physiologically distended without evidence of stones, sludge, polyps, wall thickening or pericholecystic fluid. COMMON BILE DUCT: Normal in caliber measuring 0.3 cm in diameter. RIGHT KIDNEY: Normal. No hydronephrosis. No renal calculi or focal parenchymal lesions. The kidney measures 12.2 cm in maximum dimension. LEFT KIDNEY: Normal. No hydronephrosis. No renal calculi or focal parenchymal lesions. The kidney measures 11.4 cm in maximum dimension. SPLEEN: Normal. The spleen measures 10.8 cm in maximum dimension. FREE FLUID: None. US/US abdomen complete IMPRESSION: 1. No cholelithiasis or evidence of acute cholecystitis. 2. Moderately increased hepatic echogenicity which can be seen in the setting of hepatic steatosis or underlying liver disease similar to prior. Mild hepatomegaly decreased from prior.
== END 2024-01-18 07:48 | disposition home or self-care (01) ==
LOC: HO.US 07:47
PROVIDERS: PCP Internal Medicine; Visit Provider Internal Medicine
DX: R10.11 Right upper quadrant pain (principal)
CPT/HCPCS: 76700

== ENCOUNTER 2024-02-06 16:00 | Outpatient (AMB) | payer OTHER, SELFPAY ==
--- NOTE | 2024-02-06 15:28 | MHC.OFFVISWM ---
VS Expanded 02/06/24 16:04 Height 5 ft 6 in Weight 205 lb BMI 33.1 Intake Visit Reasons: PO LSG 12/20/23 Yarn Washer Required: No Allergies No Known Allergies Allergy (Verified 01/07/24 10:39) Medication List - Last Reconciled 02/06/24 by YANIRA Condon pantoprazole 40 mg PO DAILY@0630 sucralfate 10 mL PO BID HPI Comments Details: This?a?28?yo female who is s/p LSG without hiatal hernia repair on?12/20/2023. Presents for 6 week post op visit. Weight today is 205 pounds, with a BMI of 33.1. There has been a 42.8 pound weight loss,(initial weight 247.8 pounds) since starting the program on 09/17/2023 reflecting a 17.2% total body weight loss and a weight loss of 20.5 pounds since surgery (operative weight 225.5 pounds) reflecting a 9% TBWL since surgery. No complaints of nausea, emesis, abdominal pain or reflux. Reports infrequent but normal bowel movements every 1-2 days and uses stool softeners regularly. She states she is doing great. She is tolerating meal plan. 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 Exercise routine includes: gym: treadmill, speed 3, incline 4-12, 300 calories, 4 x per week walking outside 1 mi on the off days [facility] Medical History Cervical cancer screening BMI 39.0-39.9,adult Body mass index (BMI) of 40.1 to 44.9 in adult Physical exam Back pain GERD (gastroesophageal reflux disease) Depression Murmur Morbid obesity Lumbar pain Surgical History Hx of laparoscopic partial gastrectomy Family History Father Diabetes mellitus Heart problem Mother Family history of thyroid problem Brother No problems noted. Maternal Grandmother Breast cancer Social History Household Members: Significant Other Housing: Apartment Are you a primary animal care taker to a significant other at home: No Do you presently have visiting nurse or other home services: No Alcohol intake: current Alcohol intake frequency: does not drink Alcohol type: wine Patient Tobacco Use Status: Never used Tobacco e-Cigarette/Vaping Use: Never Used Second Hand Smoke Exposure: No service: No Current occupational status: employed Current occupation: [employer] Current occupational exposures/hazards: No Sexual orientation: Straight/Heterosexual Gender identity: Female Cognitive needs: No Hearing needs: No Vision needs: Yes Assessment & Plan Assessment & Plan (1) S/P laparoscopic sleeve gastrectomy: Code(s): Z98.84 - Bariatric surgery status Category: Surgical Plan: Overall, doing well. Recommend increasing exercise with a goal of burning 400-450 calories 4 days a week. Continue to walk the mi on the off days. She may begin to incorporate weight training if she wishes prior to cardio but not at the expense of cardio on her gym days. We will have her return to the office in approximately 3-4 weeks. Encouraged to text weekly with her weight and if any questions or concerns
[2024-02-06 16:04] VITALS: BMI 33.1
== END 2024-02-06 16:30 | disposition home or self-care (01) ==
LOC: HO.HBS 16:20
PROVIDERS: PCP Internal Medicine; Visit Provider Physician Assistant Surgical
DX: Z98.84 Bariatric surgery status (principal)
CPT/HCPCS: 99024

== ENCOUNTER → 2024-02-06 16:00 | Outpatient (BNVA) | payer OTHER, SELFPAY | PROVIDERS: PCP Internal Medicine; Visit Provider Physician Assistant Surgical ==

== ENCOUNTER 2024-02-27 11:32 | Outpatient (AMB) | payer SELFPAY ==
--- NOTE | 2024-02-27 11:11 | MHC.OFFVISWM ---
VS Expanded 02/27/24 11:12 Height 5 ft 6 in Weight 198 lb 3.2 oz BMI 32.0 Body Fat % 38.9 Intake Visit Reasons: (TV) PO LSG 12/20/23 Pigment And Lacquer Mixer Required: No Allergies No Known Allergies Allergy (Verified 01/07/24 10:39) Medication List - Last Reconciled 02/27/24 by YANIRA Condon pantoprazole 40 mg PO DAILY@0630 sucralfate 10 mL PO BID HPI Comments Details: This?a?28?yo female who is s/p LSG without hiatal hernia repair on?12/20/2023. Presents for 2 month post op visit. Weight today is 198.2 pounds, with a BMI of 32. There has been a 49.6 pound weight loss,(initial weight 247.8 pounds) since starting the program on 09/17/2023 reflecting a 20% total body weight loss and a weight loss of 27.3 pounds since surgery (operative weight 225.5 pounds) reflecting a 12.1% TBWL since surgery. No complaints of nausea, emesis, abdominal pain or reflux. Reports infrequent but normal bowel movements every 1-2 days and uses stool softeners regularly. She states she is doing great. She is tolerating meal plan. 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 She is very proud of her accomplishments, she just recently redeveloped her wardrobe. She has satisfied with the meal plan and does not wish to change at this time. Present meal plan includes: 3 celebrate 4 in 1 shakes, 2 scoops in 8 oz almond milk, 8-10, 1 scoop 11-1 1 scoop 4-6 zone perfect bar 7-9 pm drinking 40 oz daily ? Exercise routine includes: gym: treadmill, speed 3.2, incline 6-12, 250 calories, 5 x per week walking outside 1 mi on the off days [facility] Medical History Cervical cancer screening BMI 39.0-39.9,adult Body mass index (BMI) of 40.1 to 44.9 in adult Physical exam Back pain GERD (gastroesophageal reflux disease) Depression Murmur Morbid obesity Lumbar pain Surgical History Hx of laparoscopic partial gastrectomy Family History Father Diabetes mellitus Heart problem Mother Family history of thyroid problem Brother No problems noted. Maternal Grandmother Breast cancer Social History Household Members: Significant Other Housing: Apartment Are you a primary home care music therapist to a significant other at home: No Do you presently have visiting nurse or other home services: No Alcohol intake: current Alcohol intake frequency: does not drink Alcohol type: wine Patient Tobacco Use Status: Never used Tobacco e-Cigarette/Vaping Use: Never Used Second Hand Smoke Exposure: No service: No Current occupational status: employed Current occupation: [employer] Current occupational exposures/hazards: No Sexual orientation: Straight/Heterosexual Gender identity: Female Cognitive needs: No Hearing needs: No Vision needs: Yes Telehealth Telehealth Telehealth Platform: Telephone Location of provider rendering services: practice address Location of patient: address on file Patient Identification confirmed using: Name, : Yes Telehealth method: voice only Patient verbally consented to treatment: Yes Patient verbally consented to billing insurance company: Yes Patient informed of any privacy concerns related to visit: Yes Minutes spent on Phone/Video with Pt.: 15 Assessment & Plan Assessment & Plan (1) S/P laparoscopic sleeve gastrectomy: Code(s): Z98.84 - Bariatric surgery status Category: Medical Plan: Patient will continue her current meal plan. It was suggested that she send me her weight is weekly. She only has about 45 minutes at the gym and she had been doing weights. I suggested that she spend 45 minutes doing cardio on the treadmill increasing her incline, starting at 6, by 2, up to 14 if she is able. Additionally suggested tracking calories with [employer] little on her phone when she walks on the off days from the gym. We will have her return to the office in 1 month.
[2024-02-27 11:12] VITALS: BMI 32.0
== END 2024-02-27 11:41 | disposition home or self-care (01) ==
LOC: HO.HBS 11:32
PROVIDERS: PCP Internal Medicine; Visit Provider Physician Assistant Surgical
DX: Z98.84 Bariatric surgery status (principal)
CPT/HCPCS: 99024

== ENCOUNTER → 2024-02-27 11:32 | Outpatient (BNVA) | payer SELFPAY | PROVIDERS: PCP Internal Medicine; Visit Provider Physician Assistant Surgical | DX: Z98.84 Bariatric surgery status (principal) | CPT/HCPCS: 99212 ==

== ENCOUNTER 2024-03-28 10:46 | Outpatient (AMB) | payer OTHER, SELFPAY ==
[2024-03-28 08:57] VITALS: BMI 29.9
--- NOTE | 2024-03-28 08:57 | A.OFFVIS_ITS ---
VS Expanded 03/28/24 08:57 Height 5 ft 6 in Weight 185 lb BMI 29.9 Body Fat % 35.7 Body Fat Mass 66 Fat Free Mass 119 Visceral Fat Rating 12 Body Water % 44.1 Body Water Mass 81.5 Muscle Mass/Score 111.8 Basal Metabolic Rate/Score 1,535 Intake Visit Reasons: (TV) PO LSG 12/20/23 Speech Pathology Assistant Required: No Allergies No Known Allergies Allergy (Verified 01/07/24 10:39) Medication List - Last Reconciled 03/28/24 by YANIRA Condon pantoprazole 40 mg PO DAILY@0630 sucralfate 10 mL PO BID HPI Comments Details: This?a?28?yo female who is s/p LSG without hiatal hernia repair on?12/20/2023. Presents for 2 month post op visit. Weight today is 185 pounds, with a BMI of 29.9. There has been a 62.8 pound weight loss,(initial weight 247.8 pounds) since starting the program on 09/17/2023 reflecting a 25.3% total body weight loss and a weight loss of 40.5 pounds since surgery (operative weight 225.5 pounds) reflecting a 17.9% TBWL since surgery. No complaints of nausea, emesis, abdominal pain or reflux. Reports infrequent but normal bowel movements every 1- 2 days and uses stool softeners regularly. She states she is doing great. She is tolerating meal plan. has been following meal and exercise plans. Complains of some constipation, improved with miralax. She states she will continue her meal plan. Present meal plan includes: 3 celebrate 4 in 1 shakes, 2 scoops in 8 oz almond milk, 8-10, 1 scoop 11-1 1 scoop 4-6 zone perfect bar 7-9 pm drinking 64 oz daily ? Exercise routine includes: gym: treadmill, speed 3.2, incline 6-12, 280 calories, 5 x per week walking outside 1 mi on the off days [facility] Medical History Cervical cancer screening BMI 39.0-39.9,adult Body mass index (BMI) of 40.1 to 44.9 in adult Physical exam Back pain GERD (gastroesophageal reflux disease) Depression Murmur Morbid obesity Lumbar pain Surgical History Hx of laparoscopic partial gastrectomy Family History Father Diabetes mellitus Heart problem Mother Family history of thyroid problem Brother No problems noted. Maternal Grandmother Breast cancer Social History Household Members: Significant Other Housing: Apartment Are you a primary respiratory care practitioner to a significant other at home: No Do you presently have visiting nurse or other home services: No Alcohol intake: current Alcohol intake frequency: does not drink Alcohol type: wine Patient Tobacco Use Status: Never used Tobacco e-Cigarette/Vaping Use: Never Used Second Hand Smoke Exposure: No service: No Current occupational status: employed Current occupation: [employer] Current occupational exposures/hazards: No Sexual orientation: Straight/Heterosexual Gender identity: Female Cognitive needs: No Hearing needs: No Vision needs: Yes Telehealth Telehealth Telehealth Platform: Telephone Location of provider rendering services: practice address Location of patient: other Patient Identification confirmed using: Name, : Yes Telehealth method: voice only Patient verbally consented to treatment: Yes Patient verbally consented to billing insurance company: Yes Patient informed of any privacy concerns related to visit: Yes Minutes spent on Phone/Video with Pt.: 15 Assessment & Plan Assessment & Plan (1) Overweight (BMI 25.0-29.9): Code(s): E66.3 - Overweight Category: Medical Plan: Patient is doing well overall. She has had some mild constipation with improvement with MiraLax. Suggest adding fiber gummy, 2 daily. She wants to continue her current meal plan which we will recommend that she continues. Consideration for reintroducing food at her next visit. Encouraged to increase exercise calories burned to 350 daily when she goes to the gym, 5 days per week. She also continues to walk 1-1-1/2 miles on her off days. Recommend 250 calories for that. She is overall very satisfied with her progress and we will have her return to the office in approximately 1 month. Encouraged to text with any questions or concerns and continue to send weight measurements.
== END 2024-03-28 11:28 | disposition home or self-care (01) ==
LOC: HO.HBS 10:46
PROVIDERS: PCP Internal Medicine; Visit Provider Physician Assistant Surgical
DX: E66.3 Overweight (principal); Z68.29 Body mass index [BMI] 29.0-29.9, adult; Z90.3 Acquired absence of stomach [part of]; Z98.84 Bariatric surgery status
CPT/HCPCS: 99213

== ENCOUNTER → 2024-03-28 10:46 | Outpatient (BNVA) | payer OTHER, SELFPAY | PROVIDERS: PCP Internal Medicine; Visit Provider Physician Assistant Surgical | DX: E66.3 Overweight (principal) ==

== ENCOUNTER 2024-04-04 10:31 | Outpatient (AMB) | payer OTHER, SELFPAY ==
--- NOTE | 2024-04-04 10:38 | MHC.PC.OV ---
Vital Signs 04/04/24 10:50 Height 5 ft 6 in Weight 192 lb BMI 31.0 BP 100/60 Blood Pressure Location Lt brachial Position Sitting Pulse 64 Pulse Source Pulse Oximeter Pulse Oximetry (%) 99 Oxygen Delivery Method Room Air Intake Visit Reasons: HELEN from [place] Intake Note: Patient reports she had gastric sleeve surgery. Patient is concerned about conceiving. Patient is curious about adding weight loss medications, having the gastric sleeve surgery. Bonding Machine Tender Required: No Accompanied by: Self / Same As Patient Allergies No Known Allergies Allergy (Verified 04/04/24 10:54) Medication List - Last Reconciled 04/04/24 by Mariam Veliz MD No Known Home Meds Tobacco use date assessed: 04/04/24 Dental Screening Dental Screen Date: 09/27/23 Did you have a dental visit in the last 12 months?: Yes Did you have a dental problem in the last 6 months where you did not have access to dental care?: No Was dental information given to patient?: Patient has dentist HPI HPI Comments History of Present Illness Details This is a 28-year-old female with obesity s/p LSG, depression, GERD, depression presenting to establish care. [place] [facility] [place]/p 12/2023 LSG. Doing fairly well. Would like to get next year when cleared by weight management. Hormone dysregulation-hallmarks of PCOS. Interested in GLP to aid weight loss and hormone imbalance Depressive symptoms have resolved. Has been on medication in the past Follows with Libby Diez [place] [facility] [place] ROS CONSTITUTIONAL: Denies weight loss, fever and chills. HEENT: Denies changes in vision and hearing. RESPIRATORY: Denies SOB and cough. CV: Denies palpitations and CP GI: Denies abdominal pain, nausea, vomiting and diarrhea. : Denies dysuria and urinary frequency. MSK: Denies new myalgia and joint pain. SKIN: Denies rash and pruritus. NEUROLOGICAL: Denies headache PSYCHIATRIC: Denies recent changes in mood. PHYSICAL EXAM: GENERAL: Alert and oriented x 3. NAD EYES: EOMI. Anicteric. HENT: Moist mucous membranes. No scleral icterus. No cervical lymphadenopathy. LUNGS: Clear to auscultation bilaterally. CARDIOVASCULAR: Regular rate and rhythm. No murmur. No JVD. ABDOMEN: Soft, non-tender +bs EXTREMITIES: No edema. Non-tender. SKIN: No rashes or lesions. Warm. NEUROLOGIC: No focal neurological deficits. CN II-XII grossly intact PSYCHIATRIC: Cooperative. Appropriate mood and affect [facility] Medical History Prediabetes Cervical cancer screening BMI 39.0-39.9,adult Body mass index (BMI) of 40.1 to 44.9 in adult Physical exam Back pain GERD (gastroesophageal reflux disease) Depression Murmur Morbid obesity Lumbar pain Surgical History Hx of laparoscopic partial gastrectomy Family History Father Diabetes mellitus Heart problem Alcoholism Hypertension Mother Family history of thyroid problem Brother No problems noted. Maternal Grandmother Breast cancer Family history of thyroid problem Diabetes mellitus Maternal Grandfather Hypertension High cholesterol Heart problem Paternal Grandfather Diabetes mellitus Alcoholism Social History Household Members: Significant Other Housing: Apartment Are you a primary palliative care nurse to a significant other at home: No Do you presently have visiting nurse or other home services: No 75 years or older and lives alone: No Alcohol intake: current Alcohol intake frequency: does not drink Alcohol type: wine Patient Tobacco Use Status: Never used Tobacco e-Cigarette/Vaping Use: Never Used Second Hand Smoke Exposure: No service: No Current occupational status: employed Current occupation: [employer] Current occupational exposures/hazards: No Sexual orientation: Straight/Heterosexual Gender identity: Female Cognitive needs: No Hearing needs: No Vision needs: Yes (wears glasses) Questionnaire PHQ-9 Over the last 2 weeks, how often have you been bothered by any of the following problems? 1. Little interest or pleasure in doing things: not at all 2. Feeling down, depressed, or hopeless: not at all 3. Trouble falling or staying asleep, or sleeping too much: not at all 4. Feeling tired or having little energy: not at all 5. Poor appetite or overeating: not at all 6. Feeling bad about yourself - or that you are a failure or have let yourself or your family down: not at all 7. Trouble concentrating on things, such as reading the newspaper or watching television: not at all 8. Moving or speaking so slowly that other people could have noticed. Or the opposite - being so fidgety or restless that you have been moving around a lot more than usual: not at all 9. Thoughts that you would be better off or of hurting yourself in some way: not at all Total score: 0 Depression Screening Interpretation: Negative (neg) Depression Screening Done: Yes 59601 - PHQ-9 Billing: Yes Source: Developed by Drs. Jb Simental, Kacey Hope, Ritesh Kaur and colleagues, with an educational el from [facility]. Thrive Questionnaire Date Thrive assessed: 04/04/24 I am a: Patient What is your living situation today?: I have a steady place to live Within the past 12 months, did the food you bought not last and you didn't have the money to get more?: Sometimes True Within the past 12 months, did you worry whether your food would run out before you got money to buy more?: Sometimes True Do you have trouble paying for medicines?: No Do you have trouble getting transportation to medical appointments?: No Do you have trouble paying your heating and electricity bill?: Yes Do you have trouble taking care of your child, family member or friend?: No Do you have trouble with day-to-day activities such as bathing, preparing meals, shopping, managing finances, etc.?: No Are you currently unemployed and looking for a job?: No Are you interested in more education?: No Please select the resources that you would like help with: Utilities Currently or been in a relationship where the following occur: No concerns reported THRIVE Score: 3 AUDIT C Alcohol Use Questionnaire (AUDIT-C) 1. How often do you have a drink containing alcohol?: Monthly or less 2. How many drinks containing alcohol do you have on a typical day when you are drinking?: 1 or 2 3. How often do you have six or more drinks on one occasion?: Never Total Score: 1 MARIE-7 AMB Questionnaire MARIE-7 Date MARIE - 7 assessed: 04/04/24 Feeling nervous, anxious, or on edge: 0 = Not at all Not being able to stop or control worryin = Several days Worrying too much about different things: 0 = Not at all Trouble relaxin = Not at all Being so restless that it is hard to sit still: 0 = Not at all Becoming easily annoyed or irritable: 0 = Not at all Feeling afraid as if something awful might happen: 0 = Not at all Total MARIE-7 score (0-4 normal; 5-9 mild; 10-14 moderate; 15-21 severe): 1 Source: Developed by Drs. Jb Simental, Kacey Hope, Ritesh Kaur and colleagues, with an educational el from [facility]. MARIE-7 Assessment Billing MARIE-7 Assessment Tool: MARIE-7 Assessment 90925 Physical exam (Primary Care) Vital Signs: Last Vital Signs Pulse 64 04/04/24 10:50 BP 100/60 04/04/24 10:50 Pulse Ox 99 04/04/24 10:50 Oxygen Delivery Method Room Air 04/04/24 10:50 BMI result Body Mass Index 31.0 Tobacco/Smoking Status: Tobacco use Status Tobacco use date assessed 01/02/24 04/04/24 10:42 Patient Tobacco Use Status Never used Tobacco 04/04/24 10:42 e-Cigarette/Vaping Use Never Used 04/04/24 10:42 PHQ-9: PHQ-9 Score PHQ-9: Total score 0 04/04/24 10:54 Depression Screening Interpretation: Negative (neg) Thrive Assessment: Date of Thrive Assessment Date Thrive assessed 04/04/24 04/04/24 10:42 Currently or been in a relationship where the following occur: No concerns reported Assessment and Plan Assessment & Plan (1) Major depressive disorder, recurrent, mild: Code(s): F33.0 - Major depressive disorder, recurrent, mild Plan: stable without medications. Minimal symptoms (2) S/P laparoscopic sleeve gastrectomy: Code(s): Z98.84 - Bariatric surgery status Plan: continue program with weight management (3) Hormone imbalance: Code(s): E34.9 - Endocrine disorder, unspecified Plan: Features of PCOS. Start GLP. Follow up for dosing in 4 weeks via portal/phone Medications: New ondansetron 4 mg PO Q8H 30 days PRN 60 tabs 0RF nausea and vomiting tirzepatide (Mounjaro) 2.5 mg (0.5 mL) subcut QWEEK 4 weeks 2 mL 0RF Coding Level of Care Code Est Pt Level 4 (09136) Diagnoses Major depressive disorder, recurrent, mild F33.0 S/P laparoscopic sleeve gastrectomy Z98.84 Hormone imbalance E34.9 Additional Codes MARIE-7 Assessment Billing - MARIE-7 Assessment Tool: MARIE-7 Assessment [id number] ([id number])
[2024-04-04 10:50] VITALS: BP 100/60; PULSE 64; O2SAT 99; BMI 31.0
== END 2024-04-04 12:49 | disposition home or self-care (01) ==
PROVIDERS: PCP Internal Medicine; Visit Provider Internal Medicine
DX: F33.0 Major depressive disorder, recurrent, mild (principal); Z98.84 Bariatric surgery status; E34.9 Endocrine disorder, unspecified
CPT/HCPCS: 99214

== ENCOUNTER 2024-09-16 13:15 | Outpatient (AMB) | payer OTHER, SELFPAY ==
--- NOTE | 2024-09-16 13:22 | MHC.PC.OV ---
Vital Signs 09/16/24 13:27 Height 5 ft 6 in Weight 162 lb BMI 26.1 BP 112/66 Blood Pressure Location Rt brachial Position Sitting Respiration 12 Pulse 77 Pulse Source Pulse Oximeter Pulse Oximetry (%) 99 Oxygen Delivery Method Room Air Intake Visit Reasons: annual exam Intake Note: annual exam, patient also fainted over the weekend. Life Assurance Representative Required: No Allergies No Known Allergies Allergy (Verified 09/16/24 13:24) Tobacco use date assessed: 04/04/24 Dental Screening Dental Screen Date: 09/16/24 Did you have a dental visit in the last 12 months?: Yes Did you have a dental problem in the last 6 months where you did not have access to dental care?: No Was dental information given to patient?: Patient has dentist HPI HPI Comments History of Present Illness Details This is a 28-year-old female with obesity s/p LSG, depression, GERD, depression presenting for physical exam Patient follows with weight management at [facility] [place]. s/p 12/2023 LSG. Doing fairly well. Hormone dysregulation-hallmarks of PCOS. She was interested om GLP to aid weight loss and hormone imbalance but this was denied by insurance despite the fact that she sees weight management, nutrition. She has done well with weight loss goals. She is taking her supplements. Has episodes when she stands up to quickly -feels like she is going to pass out. She did pass out on one of these occasions but came too as she fell. She denies palpitations. History of heart murmur. Not audible on todays exam Depressive symptoms have resolved. Has been on medication in the past Follows with Libby Diez at [facility] [place] for [place]necology Td-unknown. Plans to get at work ROS CONSTITUTIONAL: Denies weight loss, fever and chills. HEENT: Denies changes in vision and hearing. RESPIRATORY: Denies SOB and cough. CV: Denies palpitations and CP GI: Denies abdominal pain, nausea, vomiting and diarrhea. : Denies dysuria and urinary frequency. MSK: Denies new myalgia and joint pain. SKIN: Denies rash and pruritus. NEUROLOGICAL: Denies headache PSYCHIATRIC: Denies recent changes in mood. PHYSICAL EXAM: GENERAL: Alert and oriented x 3. NAD EYES: EOMI. Anicteric. HENT: Moist mucous membranes. No scleral icterus. No cervical lymphadenopathy. LUNGS: Clear to auscultation bilaterally. CARDIOVASCULAR: Regular rate and rhythm. No murmur. No JVD. ABDOMEN: Soft, non-tender +bs EXTREMITIES: No edema. Non-tender. SKIN: No rashes or lesions. Warm. NEUROLOGIC: No focal neurological deficits. CN II-XII grossly intact PSYCHIATRIC: Cooperative. Appropriate mood and affect [facility] Medical History (Updated 09/16/24 @ 14:41 by Mariam Veliz MD) Physical exam Body mass index (BMI) of 40.1 to 44.9 in adult Prediabetes Cervical cancer screening BMI 39.0-39.9,adult Back pain GERD (gastroesophageal reflux disease) Depression Murmur Morbid obesity Lumbar pain Surgical History Hx of laparoscopic partial gastrectomy Family History Father Diabetes mellitus Heart problem Alcoholism Hypertension Mother Family history of thyroid problem Brother No problems noted. Maternal Grandmother Breast cancer Family history of thyroid problem Diabetes mellitus Maternal Grandfather Hypertension High cholesterol Heart problem Paternal Grandfather Diabetes mellitus Alcoholism Social History Household Members: Significant Other Housing: Apartment Are you a primary child care center assistant director to a significant other at home: No Do you presently have visiting nurse or other home services: No 75 years or older and lives alone: No Alcohol intake: current Alcohol intake frequency: does not drink Alcohol type: wine Patient Tobacco Use Status: Never used Tobacco e-Cigarette/Vaping Use: Never Used Second Hand Smoke Exposure: No service: No Current occupational status: employed Current occupation: [employer] Current occupational exposures/hazards: No Sexual orientation: Straight/Heterosexual Gender identity: Female Cognitive needs: No Hearing needs: No Vision needs: Yes (wears glasses) Questionnaire PHQ-9 Over the last 2 weeks, how often have you been bothered by any of the following problems? 1. Little interest or pleasure in doing things: not at all 2. Feeling down, depressed, or hopeless: not at all 3. Trouble falling or staying asleep, or sleeping too much: not at all 4. Feeling tired or having little energy: not at all 5. Poor appetite or overeating: not at all 6. Feeling bad about yourself - or that you are a failure or have let yourself or your family down: not at all 7. Trouble concentrating on things, such as reading the newspaper or watching television: not at all 8. Moving or speaking so slowly that other people could have noticed. Or the opposite - being so fidgety or restless that you have been moving around a lot more than usual: not at all 9. Thoughts that you would be better off or of hurting yourself in some way: not at all Total score: 0 36229 - PHQ-9 Billing: Yes Source: Developed by Drs. Jb Simental, Kacey Hope, Ritesh Kaur and colleagues, with an educational el from [employer]. Thrive Questionnaire Date Thrive assessed: 09/16/24 I am a: Patient What is your living situation today?: I have a steady place to live Within the past 12 months, did the food you bought not last and you didn't have the money to get more?: Sometimes True Within the past 12 months, did you worry whether your food would run out before you got money to buy more?: Never true Do you have trouble paying for medicines?: No Do you have trouble getting transportation to medical appointments?: No Do you have trouble paying your heating and electricity bill?: No Do you have trouble taking care of your child, family member or friend?: No Do you have trouble with day-to-day activities such as bathing, preparing meals, shopping, managing finances, etc.?: No Are you currently unemployed and looking for a job?: No Are you interested in more education?: No Please select the resources that you would like help with: Food, Utilities and None Currently or been in a relationship where the following occur: No concerns reported THRIVE Score: 1 AUDIT C Alcohol Use Questionnaire (AUDIT-C) 1. How often do you have a drink containing alcohol?: Monthly or less 2. How many drinks containing alcohol do you have on a typical day when you are drinking?: 1 or 2 3. How often do you have six or more drinks on one occasion?: Never Total Score: 1 MARIE-7 AMB Questionnaire MARIE-7 Date MARIE - 7 assessed: 09/16/24 Feeling nervous, anxious, or on edge: 0 = Not at all Not being able to stop or control worryin = Not at all Worrying too much about different things: 0 = Not at all Trouble relaxin = Not at all Being so restless that it is hard to sit still: 0 = Not at all Becoming easily annoyed or irritable: 0 = Not at all Feeling afraid as if something awful might happen: 0 = Not at all Total MARIE-7 score (0-4 normal; 5-9 mild; 10-14 moderate; 15-21 severe): 0 Source: Developed by Drs. Jb Simental, Kacey Hope, Ritesh Kaur and colleagues, with an educational el from [employer]. MARIE-7 Assessment Billing MARIE-7 Assessment Tool: MARIE-7 Assessment 40980 Physical exam (Primary Care) Vital Signs: Last Vital Signs Pulse 77 09/16/24 13:27 Resp 12 09/16/24 13:27 BP 112/66 09/16/24 13:27 Pulse Ox 99 09/16/24 13:27 Oxygen Delivery Method Room Air 09/16/24 13:27 BMI result Body Mass Index 26.1 Tobacco/Smoking Status: Tobacco use Status Tobacco use date assessed 04/04/24 09/16/24 13:22 Patient Tobacco Use Status Never used Tobacco 09/16/24 13:22 e-Cigarette/Vaping Use Never Used 09/16/24 13:22 PHQ-9: PHQ-9 Score PHQ-9: Total score 0 09/16/24 13:22 Thrive Assessment: Date of Thrive Assessment Date Thrive assessed 09/16/24 09/16/24 13:22 Currently or been in a relationship where the following occur: No concerns reported Coding Level of Care Code Est Pt Prev Care 18-39y(97210) Diagnoses Physical exam Z00.00 Prediabetes R73.03 Anemia, unspecified type D64.9 Anemia type: unspecified type Additional Codes MARIE-7 Assessment Billing - MARIE-7 Assessment Tool: MARIE-7 Assessment 16914 ([id number]) PHQ-9 - 09123 - PHQ-9 Billing: Yes ([id number]) Assessment & Plan Assessment & Plan (1) Physical exam: Code(s): Z00.00 - Encounter for general adult medical examination without abnormal findings Category: Medical Plan: Will get Tdap Preventive measures otherwise up to date (2) Prediabetes: Code(s): R73.03 - Prediabetes Category: Medical Plan: check labs (3) Anemia: Code(s): D64.9 - Anemia, unspecified Category: Medical Qualifiers: Anemia type: unspecified type Qualified Code(s): D64.9 - Anemia, unspecified Plan: check labs Orders: Orders Comprehensive Met. Panel Today D64.9 - Anemia, unspecified, F33.0 - Major depressive disorder, recurrent, mild, R73.02 - Impaired glucose tolerance (oral), Z13.220 - Encounter for screening for lipoid disorders Complete Blood Count Auto Diff Today D64.9 - Anemia, unspecified, F33.0 - Major depressive disorder, recurrent, mild, R73.02 - Impaired glucose tolerance (oral), Z13.220 - Encounter for screening for lipoid disorders Lipid Panel Today D64.9 - Anemia, unspecified, F33.0 - Major depressive disorder, recurrent, mild, R73.02 - Impaired glucose tolerance (oral), Z13.220 - Encounter for screening for lipoid disorders TSH reflex Free T4 Today D64.9 - Anemia, unspecified, F33.0 - Major depressive disorder, recurrent, mild, R73.02 - Impaired glucose tolerance (oral), Z13.220 - Encounter for screening for lipoid disorders Hemoglobin A1c Today D64.9 - Anemia, unspecified, F33.0 - Major depressive disorder, recurrent, mild, R73.02 - Impaired glucose tolerance (oral), Z13.220 - Encounter for screening for lipoid disorders Vitamin B12 and Folate Today D64.9 - Anemia, unspecified, F33.0 - Major depressive disorder, recurrent, mild, R73.02 - Impaired glucose tolerance (oral), Z13.220 - Encounter for screening for lipoid disorders IRON PROFILE Today D64.9 - Anemia, unspecified, F33.0 - Major depressive disorder, recurrent, mild, R73.02 - Impaired glucose tolerance (oral), Z13.220 - Encounter for screening for lipoid disorders Cortisol Random Today I95.1 - Orthostatic hypotension Medications: Discontinued Wegovy (semaglutide (weight loss)) administer weeks 1 through 4 of therapy Discontinued Reason: Doctor's Order 0.25 mg (0.5 mL) subcut QWEEK 2 mL 0RF NS Z68.35 - Body mass index [BMI] 35.0-35.9, adult tirzepatide (Mounjaro) Discontinued Reason: Doctor's Order 2.5 mg (0.5 mL) subcut QWEEK 4 weeks 2 mL 0RF
[2024-09-16 13:27] VITALS: BP 112/66; PULSE 77; RESP 12; O2SAT 99; BMI 26.1
== END 2024-09-16 16:27 | disposition home or self-care (01) ==
PROVIDERS: PCP Internal Medicine; Visit Provider Internal Medicine
DX: Z00.00 Encounter for general adult medical examination without abnormal findings (principal); R73.03 Prediabetes; D64.9 Anemia, unspecified

== ENCOUNTER → 2024-09-16 13:15 | Outpatient (BNVA) | payer OTHER, SELFPAY | PROVIDERS: PCP Internal Medicine; Visit Provider Internal Medicine | DX: Z00.00 Encounter for general adult medical examination without abnormal findings (principal); R73.03 Prediabetes; D64.9 Anemia, unspecified | CPT/HCPCS: 96127 ==

== ENCOUNTER 2024-09-17 08:14 | Outpatient (REF) | payer OTHER, SELFPAY ==
[2024-09-17 11:08] LABS: MANUAL DIFF FLAG NO
[2024-09-17 11:16] LABS: Basophils Percent Auto 0.2 % (0-2); Eosinophils Absolute Auto 0.1 X10*3/uL (0.0-0.4); Eosinophils Percent Auto 1.1 % (0-4); Hematocrit 37.6 % (37.0-47.0); Hemoglobin 11.7 g/dl (12.0-16.0); Imm Gran Abs Auto 0.01 X10*3/uL (0.00-0.03); Imm Gran Pct Auto 0.2 % (0.0-0.4); Lymphocytes Percent Auto 41.4 % (20-40); Mean Corpuscular HGB Conc 31.1 g/dl (31.0-35.0); Mean Corpuscular Hemoglobin 25.7 pg (27.0-33.0); Mean Corpuscular Volume 82.6 fL (80.0-98.0); Mean Platelet Volume 10.3 fL (9.4-12.3); Monocytes Absolute Auto 0.3 X10*3/uL (0.1-1.2); Monocytes Percent Auto 7.2 % (2-11); Neutrophils Absolute Auto 2.4 x10*3/uL (2.0-8.3); Neutrophils Percent Auto 49.9 % (45-73); Platelet Count 348 X10*3/uL (160-400); Red Blood Count 4.55 X10*6/uL (4.20-5.50); Red Cell Distribution Width 14.1 % (11.0-16.0); White Blood Count 4.7 X10*3/uL (4.8-10.8)
[2024-09-17 11:27] LABS: Estimated Average Glucose 100 mg/dL; Hemoglobin A1c % 5.1 % (<6.0)
[2024-09-17 11:42] LABS: Alanine Aminotransferase 10 U/L (0-31); Albumin Level 4.2 g/dL (3.5-5.0); Alkaline Phosphatase 55 U/L (39-117); Anion Gap 12 (12-20); Aspartate Amino Transferase 18 U/L (5-31); Bilirubin Total 0.7 mg/dL (0.0-1.0); Blood Urea Nitrogen 8 mg/dL (9-16); Calcium 9.6 mg/dL (8.4-10.2); Carbon Dioxide 26 mmol/L (22-29); Chloride 107 mmol/L (96-108); Cholesterol 171 mg/dL (<200); Estimated Glomerular Filt Rate > 60; Glucose Random 92 mg/dL (60-115); HDL Cholesterol 67 mg/dL (>40); Iron 79 mcg/dL (30-160); LDL Cholesterol Calculated 92 mg/dL (<100); Percent Iron Saturation 25 % (15-50); Potassium 3.8 mmol/L (3.3-5.1); Sodium 141 mmol/L (135-145); Total Iron Binding Capacity 320 mcg/dL (228-428); Total Protein 7.1 g/dL (6.5-8.0); Triglycerides 64 mg/dL (<150); Unsaturated Iron Binding 241 ug/dL
[2024-09-17 11:50] LABS: Cortisol Random 12.4 ug/dL
[2024-09-17 12:05] LABS: Folate > 20.0 ng/mL (> or = 4.0); TSH reflex Free T4 1.32 uIU/mL (0.32-4.0); Vitamin B12 393 pg/mL (200-900)
== END 2024-09-17 08:15 | disposition home or self-care (01) ==
LOC: HO.WFDLDS 08:14
PROVIDERS: Visit Provider Internal Medicine
DX: R73.02 Impaired glucose tolerance (oral) (principal); F33.0 Major depressive disorder, recurrent, mild; D64.9 Anemia, unspecified; Z13.220 Encounter for screening for lipoid disorders; I95.1 Orthostatic hypotension
CPT/HCPCS: 36415; 80053; 80061; 82533; 82607; 82746; 83036; 83540; 84443; 85025

== ENCOUNTER 2024-11-07 08:30 | Outpatient (AMB) | payer OTHER, SELFPAY ==
--- NOTE | 2024-11-07 08:20 | A.OFFVIS_ITS ---
VS Expanded 11/07/24 08:21 Height 5 ft 6 in Weight 154 lb BMI 24.9 Body Fat % 27.9 Fat Free Mass 111.2 Visceral Fat Rating 7 Body Water % 49.5 Muscle Mass/Score 104.2 Basal Metabolic Rate/Score 1,457 Intake Visit Reasons: (TV) PO LSG 12/20/23 Level Vial Grinder Required: No Allergies No Known Allergies Allergy (Verified 09/16/24 13:24) Medication List - Last Reconciled 11/07/24 by YANIRA Condon No Known Home Meds HPI Comments Details: This?a?29?yo female who is s/p LSG without hiatal hernia repair on?12/20/2023. Presents for 9 month post op visit. Weight today is 154 pounds, with a BMI of 24.9. There has been a 93.8 pound weight loss,(initial weight 247.8 pounds) since starting the program on 09/17/2023 reflecting a 37.8% total body weight loss and a weight loss of 71.5 pounds since surgery (operative weight 225.5 pounds) reflecting a 31.7% TBWL since surgery. No complaints of nausea, emesis, abdominal pain or reflux. Reports infrequent but normal bowel movements every 1- 2 days and uses stool softeners regularly. She states she is doing great. She is tolerating meal plan. has been following meal and exercise plans. Complains of some constipation, improved with miralax. She states she will continue her meal plan. Mental state and physical energy is great. She has excess skin of her abdomen and arms. Present meal plan includes: 2 celebrate 4 in 1 shakes, 2 scoops in 8 oz almond milk, 8-10, 2 scoop 11-1 7 forks protein and 7 forks veg 4-6 drinking 64 oz daily ? Exercise routine includes: gym: weights treadmill, speed 3.2, incline 6-12, 300 calories, 4 x per week walking outside 1 mi on the off days FORMERLY [facility] Medical History Physical exam Body mass index (BMI) of 40.1 to 44.9 in adult Prediabetes Cervical cancer screening BMI 39.0-39.9,adult Back pain GERD (gastroesophageal reflux disease) Depression Murmur Morbid obesity Lumbar pain Surgical History Hx of laparoscopic partial gastrectomy Family History Father Diabetes mellitus Heart problem Alcoholism Hypertension Mother Family history of thyroid problem Brother No problems noted. Maternal Grandmother Breast cancer Family history of thyroid problem Diabetes mellitus Maternal Grandfather Hypertension High cholesterol Heart problem Paternal Grandfather Diabetes mellitus Alcoholism Social History Household Members: Significant Other Housing: Apartment Are you a primary critical care specialist to a significant other at home: No Do you presently have visiting nurse or other home services: No 75 years or older and lives alone: No Alcohol intake: current Alcohol intake frequency: does not drink Alcohol type: wine Patient Tobacco Use Status: Never used Tobacco e-Cigarette/Vaping Use: Never Used Second Hand Smoke Exposure: No service: No Current occupational status: employed Current occupation: [employer] Current occupational exposures/hazards: No Sexual orientation: Straight/Heterosexual Gender identity: Female Cognitive needs: No Hearing needs: No Vision needs: Yes (wears glasses) Telehealth Telehealth Telehealth Platform: Telephone Location of provider rendering services: practice address Location of patient: address on file Patient Identification confirmed using: Name, : Yes Telehealth method: voice only Patient verbally consented to treatment: Yes Patient verbally consented to billing insurance company: Yes Patient informed of any privacy concerns related to visit: Yes Minutes spent on Phone/Video with Pt.: 15 Assessment & Plan Assessment & Plan (1) S/P laparoscopic sleeve gastrectomy: Code(s): Z98.84 - Bariatric surgery status Category: Surgical Plan: Overall, patient is doing well. She has achieved a healthy weight. I have encouraged her to increase her calories burned at the gym to 400-450. She will continue to monitor for any rash or interference with activities of daily living of the excess skin of her abdomen and arms. We will have her return to the office in approximately a month for 1 year postop follow-up visit and check labs. Encouraged to continue to text weekly with weights and with any questions or concerns
[2024-11-07 08:21] VITALS: BMI 24.9
== END 2024-11-07 08:44 | disposition home or self-care (01) ==
LOC: HO.HBS 08:39
PROVIDERS: PCP Internal Medicine; Visit Provider Physician Assistant Surgical
DX: L98.7 Excessive and redundant skin and subcutaneous tissue (principal); Z90.3 Acquired absence of stomach [part of]; Z98.84 Bariatric surgery status
CPT/HCPCS: 99213

== ENCOUNTER 2025-01-06 08:41 | Outpatient (AMB) | payer OTHER, SELFPAY ==
--- NOTE | 2025-01-06 09:07 | MHC.PC.OV ---
Vital Signs 01/06/25 09:09 Height 5 ft 6 in Weight 156 lb BMI 25.2 BP 100/62 Blood Pressure Location Lt brachial Position Sitting Respiration 12 Pulse 81 Pulse Source Pulse Oximeter Temp 98.3 F Temp Source Oral Pulse Oximetry (%) 98 Oxygen Delivery Method Room Air Intake Visit Reasons: left side of face swollen Intake Note: left side of face swollen. Sympoms started on Sunday and is getting worse. Surgical Supervisor Required: No Allergies No Known Allergies Allergy (Verified 01/06/25 09:08) Tobacco use date assessed: 01/06/25 Dental Screening Dental Screen Date: 09/16/24 HPI HPI Comments History of Present Illness Details This is a 28-year-old female with obesity s/p LSG, depression, GERD, depression presenting for left facial swelling She has noticed left facial swelling above the jawline for the past 3 days. Seems to be worsening. No redness. Denies ear pain, dental pain, throat pain, fatigue. No redness or warmth. Patient follows with weight management at [facility]. s/p 12/2023 LSG. Depressive symptoms have resolved. Has been on medication in the past Follows with Libby Diez at [facility] for gynecology Td-unknown. Plans to get at work ROS see HPI PHYSICAL EXAM: GENERAL: Alert and oriented x 3. NAD EYES: EOMI. Anicteric. HENT: Slight left facial swelling without warmth or redness. No visible caries, left ear canal and TM normal. Scattered pea sized submandicular, cervical nodes LUNGS: Clear to auscultation bilaterally. CARDIOVASCULAR: Regular rate and rhythm. No murmur. No JVD. ABDOMEN: Soft, non-tender +bs EXTREMITIES: No edema. Non-tender. SKIN: No rashes or lesions. Warm. NEUROLOGIC: No focal neurological deficits. CN II-XII grossly intact PSYCHIATRIC: Cooperative. Appropriate mood and affect [facility] Medical History Physical exam Body mass index (BMI) of 40.1 to 44.9 in adult Prediabetes Cervical cancer screening BMI 39.0-39.9,adult Back pain GERD (gastroesophageal reflux disease) Depression Murmur Morbid obesity Lumbar pain Surgical History Hx of laparoscopic partial gastrectomy Family History Father Diabetes mellitus Heart problem Alcoholism Hypertension Mother Family history of thyroid problem Brother No problems noted. Maternal Grandmother Breast cancer Family history of thyroid problem Diabetes mellitus Maternal Grandfather Hypertension High cholesterol Heart problem Paternal Grandfather Diabetes mellitus Alcoholism Social History Household Members: Significant Other Housing: Apartment Are you a primary director medicare sales to a significant other at home: No Do you presently have visiting nurse or other home services: No Alcohol intake: current Alcohol intake frequency: does not drink Alcohol type: wine Patient Tobacco Use Status: Never used Tobacco e-Cigarette/Vaping Use: Never Used Second Hand Smoke Exposure: No service: No Current occupational status: employed Current occupation: [employer] Current occupational exposures/hazards: No Sexual orientation: Straight/Heterosexual Gender identity: Female Cognitive needs: No Hearing needs: No Vision needs: Yes (wears glasses) Questionnaire Thrive Questionnaire Date Thrive assessed: 09/16/24 AUDIT C Alcohol Use Questionnaire (AUDIT-C) 1. How often do you have a drink containing alcohol?: Monthly or less 2. How many drinks containing alcohol do you have on a typical day when you are drinking?: 3 or 4 3. How often do you have six or more drinks on one occasion?: Never Total Score: 2 MARIE-7 AMB Questionnaire MARIE-7 Date MARIE - 7 assessed: 09/16/24 Source: Developed by Drs. Jb Simental, Kacey Hope, Ritesh Kaur and colleagues, with an educational el from [employer]. Physical exam (Primary Care) Vital Signs: Last Vital Signs Temp 98.3 F 01/06/25 09:09 Pulse 81 01/06/25 09:09 Resp 12 01/06/25 09:09 BP 100/62 01/06/25 09:09 Pulse Ox 98 01/06/25 09:09 Oxygen Delivery Method Room Air 01/06/25 09:09 BMI result Body Mass Index 25.2 Tobacco/Smoking Status: Tobacco use Status Tobacco use date assessed 01/06/25 01/06/25 09:08 Patient Tobacco Use Status Never used Tobacco 01/06/25 09:08 e-Cigarette/Vaping Use Never Used 01/06/25 09:08 Thrive Assessment: Date of Thrive Assessment Date Thrive assessed 09/16/24 01/06/25 09:08 Coding Level of Care Code Est Pt Level 4 (57443) Complex EM visit Add On G2211 Diagnoses Left facial swelling R22.0 Lymphadenopathy of head and neck R59.1 Assessment & Plan Assessment & Plan (1) Left facial swelling: Code(s): R22.0 - Localized swelling, mass and lump, head Category: Medical (2) Lymphadenopathy of head and neck: Code(s): R59.1 - Generalized enlarged lymph nodes Category: Medical Plan Left facial swellinig. Unclear etiology with the lack of any other symptoms She does have submandibular and cervical nodes on the left-US ordered. labs ordered. Advised call if worsening or additional symptoms develope Orders: Orders US soft tiss head and/or neck 01/06/25 R22.0 - Localized swelling, mass and lump, head, R59.1 - Generalized enlarged lymph nodes Mumps Virus IgM Antibody 01/06/25 R22.0 - Localized swelling, mass and lump, head, R59.1 - Generalized enlarged lymph nodes Basic Metabolic Panel 01/06/25 R22.0 - Localized swelling, mass and lump, head, R59.1 - Generalized enlarged lymph nodes Pathologist Review - CBC Today R79.89 - Other specified abnormal findings of blood chemistry Complete Blood Count Auto Diff 01/06/25 R22.0 - Localized swelling, mass and lump, head, R59.1 - Generalized enlarged lymph nodes Referrals Ear/Nose/Throat Referral R22.0 - Localized swelling, mass and lump, head, R59.1 - Generalized enlarged lymph nodes
[2025-01-06 09:09] VITALS: BP 100/62; PULSE 81; RESP 12; TEMP 36.8; O2SAT 98; BMI 25.2
== END 2025-01-06 09:24 | disposition home or self-care (01) ==
LOC: HO.HMCFM 08:41
PROVIDERS: PCP Internal Medicine; Visit Provider Internal Medicine
DX: R59.1 Generalized enlarged lymph nodes (principal)

== ENCOUNTER → 2025-01-06 08:41 | Outpatient (BNVA) | payer OTHER, SELFPAY | PROVIDERS: PCP Internal Medicine; Visit Provider Internal Medicine ==

== ENCOUNTER 2025-01-06 09:32 | Outpatient (REF) | payer OTHER, SELFPAY ==
[2025-01-06 11:30] LABS: MANUAL DIFF FLAG NO
[2025-01-06 11:41] LABS: Basophils Percent Auto 0.3 % (0-2); Eosinophils Percent Auto 0.5 % (0-4); Hematocrit 35.8 % (37.0-47.0); Hemoglobin 10.9 g/dl (12.0-16.0); Lymphocytes Absolute Auto 1.8 X10*3/uL (1.2-4.9); Lymphocytes Percent Auto 47.3 % (20-40); Mean Corpuscular HGB Conc 30.4 g/dl (31.0-35.0); Mean Corpuscular Hemoglobin 25.1 pg (27.0-33.0); Mean Corpuscular Volume 82.5 fL (80.0-98.0); Mean Platelet Volume 10.2 fL (9.4-12.3); Monocytes Absolute Auto 0.3 X10*3/uL (0.1-1.2); Monocytes Percent Auto 7.8 % (2-11); Neutrophils Absolute Auto 1.6 x10*3/uL (2.0-8.3); Neutrophils Percent Auto 44.1 % (45-73); Platelet Count 320 X10*3/uL (160-400); Red Blood Count 4.34 X10*6/uL (4.20-5.50); Red Cell Distribution Width 13.9 % (11.0-16.0); White Blood Count 3.7 X10*3/uL (4.8-10.8)
[2025-01-06 11:46] LABS: Anion Gap 11 (12-20); Blood Urea Nitrogen 8 mg/dL (9-16); Calcium 9.2 mg/dL (8.4-10.2); Carbon Dioxide 29 mmol/L (22-29); Chloride 105 mmol/L (96-108); Estimated Glomerular Filt Rate > 60; Glucose Random 87 mg/dL (60-115); Potassium 3.8 mmol/L (3.3-5.1); Sodium 141 mmol/L (135-145)
[2025-01-09 19:09] LABS: Mumps Virus IgM Antibody <1:20 titer
== END 2025-01-06 09:33 | disposition home or self-care (01) ==
LOC: HO.WFDLDS 09:32
PROVIDERS: Visit Provider Internal Medicine
DX: R22.0 Localized swelling, mass and lump, head (principal); R22.1 Localized swelling, mass and lump, neck; D64.9 Anemia, unspecified; Z11.59 Encounter for screening for other viral diseases
CPT/HCPCS: 36415; 80048; 85025; 86735

== ENCOUNTER 2025-01-09 08:14 | Outpatient (REF) | payer OTHER, SELFPAY ==
--- NOTE | ~2025-01-09 | US_ITS ---
EXAMINATION: US SOFT TISSUE HEAD AND NECK. LIMITED. CLINICAL INFORMATION: Swelling and enlarged lymph nodes, left submandibular hemifacial region.. COMPARISON: None available. TECHNIQUE: Linear transducer vaughan-scale and color Doppler examination with attention to the left submandibular and parotid region . FINDINGS: No solid or cystic lesion. Nonspecific prominent 1.2 cm lymph node. US/US soft tiss head and/or neck IMPRESSION: No solid or cystic lesions.. Electronically signed by: Margarito De Guzman MD 01/09/2025 09:22 AM EDT
== END 2025-01-09 08:15 | disposition home or self-care (01) ==
LOC: HO.US 08:14
PROVIDERS: PCP Internal Medicine; Visit Provider Internal Medicine
DX: R59.1 Generalized enlarged lymph nodes (principal)
CPT/HCPCS: 76536

== ENCOUNTER → 2025-01-09 08:17 | Outpatient (BNV) | payer OTHER, SELFPAY | PROVIDERS: PCP Internal Medicine; Visit Provider Radiology Diagnostic Radiology | DX: R59.0 Localized enlarged lymph nodes (principal) | CPT/HCPCS: 76536 ==

== ENCOUNTER 2025-01-12 14:12 | Outpatient (AMB) | payer OTHER, SELFPAY ==
--- NOTE | 2025-01-12 14:16 | MHC.OFFVISWM ---
VS Expanded 01/12/25 14:26 BP 108/61 Blood Pressure Location Rt brachial Pulse 68 Pulse Source Pulse Oximeter Temp 97.0 F Temperature Source Temporal Artery Scan Pulse Oximetry 99 Oxygen Delivery Method Room Air Height 5 ft 6 in Weight 160 lb 3.2 oz BMI 25.9 Body Fat % 29.6 Body Fat Mass 47.4 Fat Free Mass 112.6 Visceral Fat Rating 3.0 Body Water % 50.4 Body Water Mass 80.6 Muscle Mass/Score 107.0 Basal Metabolic Rate/Score 1,540 Intake Visit Reasons: (OV) PO LSG 12/20/23 Language Therapist Required: No Allergies No Known Allergies Allergy (Verified 01/12/25 14:28) Medication List - Last Reconciled 01/12/25 by YANIRA Condon [id number] K 45 mg iron- 800 mcg-120 mcg (Bariatric Multivitamins) caps PO HPI Comments Details: This?a?29?yo female who is s/p LSG without hiatal hernia repair on?12/20/2023. Presents for 1 year 1 month post op visit. Weight today is 160.2 pounds, with a BMI of 25.8. There has been a 87.6 pound weight loss,(initial weight 247.8 pounds) since starting the program on 09/17/2023 reflecting a 35.3% total body weight loss and a weight loss of 65.3 pounds since surgery (operative weight 225.5 pounds) reflecting a 28.9% TBWL since surgery. No complaints of nausea, emesis, abdominal pain or reflux. Reports infrequent but normal bowel movements every 1-2 days and uses stool softeners regularly. She states she is doing great. She is tolerating meal plan. has been following meal and exercise plans. Complains of some constipation, improved with miralax. She states she will continue her meal plan. Mental state and physical energy is great. She has excess skin of her abdomen and arms. Of note, patient had labs done last week revealing a mild anemia. However she reports menstrual cycle the week prior. Present meal plan includes: 2 celebrate 4 in 1 shakes, 2 scoops in 8 oz almond milk, 8-10, 2 scoop 11-1 12 forks protein and 10 forks veg 4-6 drinking 64 oz daily ? Exercise routine includes: gym: weights treadmill, speed 3.5-4, incline 6-12, 300 calories, 4 x per week walking outside 1 mi daily Any post op complications: none RIYA: never DM: never HTN: never Hyperlipidemia: never GERD:?0-5 scale ??0 = no symptoms ??1 = symptoms noticeable but not bothersome 2 =symptoms bothersome but not daily ? 3 = symptoms bothersome and daily 4 = symptoms affect daily activities 5 = symptoms are incapacitating, unable to do daily activities ? How bad is the heartburn: 0 ? Heartburn while lying down: 0 ? Heartburn when standing up: 0 ? Heartburn after meals: 0 ? Does heartburn change your diet: 0 ? Does heartburn wake you up from sleep: 0 ? Do you have difficulty swallowin ? Do you have pain with swallowin ? If you take medicine for your reflux, does this affect your daily life: 0 Satisfaction with present condition - satisfied or not satisfied: very satisfied FOR[facility]LY [facility] Medical History Physical exam Body mass index (BMI) of 40.1 to 44.9 in adult Prediabetes Cervical cancer screening BMI 39.0-39.9,adult Back pain GERD (gastroesophageal reflux disease) Depression Murmur Morbid obesity Lumbar pain Surgical History Hx of laparoscopic partial gastrectomy Family History Father Diabetes mellitus Heart problem Alcoholism Hypertension Mother Family history of thyroid problem Brother No problems noted. Maternal Grandmother Breast cancer Family history of thyroid problem Diabetes mellitus Maternal Grandfather Hypertension High cholesterol Heart problem Paternal Grandfather Diabetes mellitus Alcoholism Social History Household Members: Significant Other Housing: Apartment Are you a primary geriatric personal care aide to a significant other at home: No Do you presently have visiting nurse or other home services: No 75 years or older and lives alone: No Alcohol intake: current Alcohol intake frequency: does not drink Alcohol type: wine Patient Tobacco Use Status: Never used Tobacco e-Cigarette/Vaping Use: Never Used Second Hand Smoke Exposure: No service: No Current occupational status: employed Current occupation: [employer] Current occupational exposures/hazards: No Sexual orientation: Straight/Heterosexual Gender identity: Female Cognitive needs: No Hearing needs: No Vision needs: Yes (wears glasses) Physical Exam Vital Signs: Last Vital Signs Temp 97.0 F 01/12/25 14:26 Pulse 68 01/12/25 14:26 BP 108/61 01/12/25 14:26 Pulse Ox 99 01/12/25 14:26 Oxygen Delivery Method Room Air 01/12/25 14:26 BMI result Body Mass Index 25.9 Const General: cooperative and no acute distress Orientation/consciousness: patient oriented x3 Resp Effort & Inspection: normal respiratory effort Auscultation: clear to auscultation bilaterally Cardio Rate: regular rate Rhythm: regular rhythm GI Inspection: Yes normal to inspection and Yes incision (well healed) Palpation (GI): Soft to palpation and no masses Neuro General: patient oriented x3 Assessment & Plan Assessment & Plan (1) S/P laparoscopic sleeve gastrectomy: Code(s): Z98.84 - Bariatric surgery status Category: Surgical Plan: Patient states that she has been hungry in the early afternoon. Recommendation to change meal plan: Celebrate 4 in 1, 2 scoops 8-10 Celebrate 4 in 1 1 scoop at 11-1, 2-4 Meal with 8 forks of protein and 8 forks of vegetables Discussed the importance of exercise and increasing calories burned while using the treadmill to 400 calories per session. Check yearly labs Return to clinic 3 months Orders: Orders Vitamin B1 Today E51.9 - Thiamine deficiency, unspecified, E55.9 - Vitamin D deficiency, unspecified, E60 - Dietary zinc deficiency, K74.00 - Hepatic fibrosis, unspecified, Z98.84 - Bariatric surgery status IRON PROFILE Today E51.9 - Thiamine deficiency, unspecified, E55.9 - Vitamin D deficiency, unspecified, E60 - Dietary zinc deficiency, K74.00 - Hepatic fibrosis, unspecified, Z98.84 - Bariatric surgery status Vitamin A Today E51.9 - Thiamine deficiency, unspecified, E55.9 - Vitamin D deficiency, unspecified, E60 - Dietary zinc deficiency, K74.00 - Hepatic fibrosis, unspecified, Z98.84 - Bariatric surgery status Ferritin Today E51.9 - Thiamine deficiency, unspecified, E55.9 - Vitamin D deficiency, unspecified, E60 - Dietary zinc deficiency, K74.00 - Hepatic fibrosis, unspecified, Z98.84 - Bariatric surgery status Lipid Panel Today E51.9 - Thiamine deficiency, unspecified, E55.9 - Vitamin D deficiency, unspecified, E60 - Dietary zinc deficiency, K74.00 - Hepatic fibrosis, unspecified, Z98.84 - Bariatric surgery status Vitamin B12 and Folate Today E51.9 - Thiamine deficiency, unspecified, E55.9 - Vitamin D deficiency, unspecified, E60 - Dietary zinc deficiency, K74.00 - Hepatic fibrosis, unspecified, Z98.84 - Bariatric surgery status Zinc Today E51.9 - Thiamine deficiency, unspecified, E55.9 - Vitamin D deficiency, unspecified, E60 - Dietary zinc deficiency, K74.00 - Hepatic fibrosis, unspecified, Z98.84 - Bariatric surgery status
[2025-01-12 14:26] VITALS: BP 108/61; PULSE 68; TEMP 36.1; O2SAT 99; BMI 25.9
== END 2025-01-12 14:58 | disposition home or self-care (01) ==
LOC: HO.HBS 14:13
PROVIDERS: PCP Internal Medicine; Visit Provider Physician Assistant Surgical
DX: Z71.3 Dietary counseling and surveillance (principal); Z90.3 Acquired absence of stomach [part of]; Z98.84 Bariatric surgery status
CPT/HCPCS: 99214

== ENCOUNTER → 2025-01-12 14:12 | Outpatient (BNVA) | payer OTHER, SELFPAY | PROVIDERS: PCP Internal Medicine; Visit Provider Physician Assistant Surgical ==

== ENCOUNTER 2025-01-15 07:32 | Outpatient (REF) | payer OTHER, SELFPAY ==
--- OUTSIDE RECORDS SUMMARY | 2025-01-15 07:35 | XMS_ITS | Encounter Summary ---
Author Organization Formerly [facility] Address [address] [place] [address] Care Team Providers Care Batter Out Name Role Phone Unavailable Primary Care Provider Unavailabl e Reason for Referral * ENT (Routine) - Pending Review Specialty Diagnoses / Procedures Referred By Contac t Referred To Contact Otolaryngology Diagnoses Localized swelling, mass, and lump of head Generalized enlarged lymph nodes Mariam Veliz MD [address] [place] [phone] Phone: tel: fax: [facility] [address] [phone] Phone: tel: fax: Referral ID Status Reason Start Date Expiration Date Visits Requested Visits Authorized [id number] Pending Review Consult 01/13/2025 01/14/2026 1 1 Encounter Details Date Type Department Care Team (Late st Contact Info) Description 01/13/2025 Transcribe Orders [facility] PRIMARY CARE SCAN Mariam Veliz MD [address] [place] [phone] Localized swelling, mass, and lump of head (Primary Dx); Generalized enlarged lymph nodes Social History Tobacco Use Types Packs/Day Years Used Date Smoking Tobacco: Never Assessed Comments Unknown Sex and Gender Information Value Date Recorded Sex Assigned at Not on file Legal Sex Female 12:46 PM EDT Gender Identity Not on file Sexual Orientation Not on file documented as of this encounter Plan of Treatment Scheduled Referrals Name Type Priority Associated Diagnoses Order Schedule Ambulatory referral to ENT Outpatient Referral Routine Localized swelling, mass, and lump of head Generalized enlarged lymph nodes Ordered: 01/13/2025 documented as of this encounter Visit Diagnoses Diagnosis Localized swelling, mass, and lump of head- Primary Generalized enlarged lymph nodes Enlargement of lymph nodes documented in this encounter
--- OUTSIDE RECORDS SUMMARY | 2025-01-15 07:35 | XMS_ITS | Clinical Summary ---
Author Organization [facility] Address [address] [place] [address] Care Team Providers Care Plastic Production Machine Setter Name Role Phone Unavailable Primary Care Provider Unavailabl e Encounters Date Type Department Care Team Description 01/13/2025 Transcribe Orders [facility] PRIMARY CARE SCAN Mariam Veliz MD Localized swelling, mass, and lump of head (Primary Dx); Generalized enlarged lymph nodes from Last 3 Months Social History Tobacco Use Types Packs/Day Years Used Date Smoking Tobacco: Never Assessed Comments Unknown Sex and Gender Information Value Date Recorded Sex Assigned at Not on file Legal Sex Female 12:46 PM EDT Gender Identity Not on file Sexual Orientation Not on file Plan of Treatment Health Maintenance Due Date Last Done Comments Hepatitis C Virus Screening 1994 HIV Screening 2007 DTaP/Tdap/Td Vaccines (1 - Tdap) 2013 Hepatitis B Vaccines (1 of 3 - 19+ 3-dose series) 2013 COVID-19 Vaccine (2023-2 5 season) 2024 HPV Vaccines Aged Out No longer eligi ble based on patient's age to complete this topic Pneumococcal Vaccine: Pediat mishel (0-5 Years) and At-Risk Patients (6 to 49 Years) Aged Out No longer eligible b ased on patient's age to complete this topic
[2025-01-15 07:48] LABS: MANUAL DIFF FLAG NO
[2025-01-15 08:10] LABS: Basophils Percent Auto 0.2 % (0-2); Eosinophils Absolute Auto 0.1 X10*3/uL (0.0-0.4); Hematocrit 36.2 % (37.0-47.0); Hemoglobin 11.7 g/dl (12.0-16.0); Imm Gran Abs Auto 0.01 X10*3/uL (0.00-0.03); Imm Gran Pct Auto 0.2 % (0.0-0.4); Lymphocytes Percent Auto 40.2 % (20-40); Mean Corpuscular HGB Conc 32.3 g/dl (31.0-35.0); Mean Corpuscular Hemoglobin 25.8 pg (27.0-33.0); Mean Corpuscular Volume 79.7 fL (80.0-98.0); Mean Platelet Volume 9.5 fL (9.4-12.3); Monocytes Absolute Auto 0.3 X10*3/uL (0.1-1.2); Monocytes Percent Auto 6.8 % (2-11); Neutrophils Absolute Auto 2.5 x10*3/uL (2.0-8.3); Neutrophils Percent Auto 51.6 % (45-73); Platelet Count 311 X10*3/uL (160-400); Red Blood Count 4.54 X10*6/uL (4.20-5.50); Red Cell Distribution Width 13.9 % (11.0-16.0); White Blood Count 4.9 X10*3/uL (4.8-10.8)
[2025-01-15 08:44] LABS: Cholesterol 161 mg/dL (<200); HDL Cholesterol 67 mg/dL (>40); Iron 63 mcg/dL (30-160); LDL Cholesterol Calculated 84 mg/dL (<100); Percent Iron Saturation 18 % (15-50); Total Iron Binding Capacity 344 mcg/dL (228-428); Triglycerides 51 mg/dL (<150); Unsaturated Iron Binding 281 ug/dL
[2025-01-15 08:58] LABS: Ferritin 15 ng/mL (10-122)
[2025-01-15 09:12] LABS: Folate 13.4 ng/mL (> or = 4.0); Vitamin B12 505 pg/mL (200-900)
[2025-01-18 23:09] LABS: Zinc 68 mcg/dL (60-130)
[2025-01-19 21:49] LABS: Vitamin A 47 mcg/dL (38-98)
[2025-01-22 06:28] LABS: Vitamin B1 13 nmol/L (8-30)
== END 2025-01-15 07:33 | disposition home or self-care (01) ==
LOC: HO.LAB 07:32
PROVIDERS: PCP Internal Medicine; Visit Provider Physician Assistant Surgical
DX: R79.89 Other specified abnormal findings of blood chemistry (principal); Z98.84 Bariatric surgery status; K74.00 Hepatic fibrosis, unspecified; E60 Dietary zinc deficiency; E51.9 Thiamine deficiency, unspecified; E55.9 Vitamin D deficiency, unspecified
CPT/HCPCS: 36415; 80061; 82607; 82728; 82746; 83540; 84425; 84590; 84630; 85025

== ENCOUNTER 2025-01-20 14:57 | Outpatient (REF) | payer OTHER, SELFPAY ==
--- NOTE | ~2025-01-20 | CT_ITS ---
EXAMINATION: CT SOFT TISSUE NECK WITH CONTRAST CLINICAL INFORMATION: Generalized enlarged lymph nodes COMPARISON: None available. TECHNIQUE: Following the intravenous administration of 60 mL of Omnipaque 350 intravenous contrast, helical imaging was performed in the axial plane with generation of coronal and sagittal reformatted images. This CT examination was performed using dose optimization techniques as appropriate, variously including the following: *Automated exposure control *Adjustment of mA and/or kV according to patient size (this includes techniques or standardized protocols for targeted exams where dose is matched to indication/reason for exam; i.e. extremities or head) *Use of iterative reconstruction technique DLP 308 FINDINGS: Visualized brain parenchyma appears unremarkable. The paranasal sinuses are well-aerated with is moderate sized right and small polyp or retention cyst left maxillary sinus.. Rest of the paranasal sinuses are well-aerated. The mastoid air cells are well-aerated. The nasopharyngeal, oropharyngeal and laryngeal airway is widely patent. There is no enhancing soft tissue mass in the anterior neck. The oral cavity is limited in evaluation due to beam hardening artifact from dental amalgam. There are small shotty bilateral neck lymph nodes. The largest lymph node short axis at the angle of mandible/submandibular space measures 7 mm on the left and 8mm on the right, within normal limits. Best visualized on axial image 54/2. Both carotid arteries are widely patent. A dominant right jugular vein, patent is noted. The lung apices are clear. There is mild reversal of cervical lordosis with degenerative disc changes C4-5, C5-6 and C6 -7 disc levels with ventral and posterior cervical spondylosis. No visible acute fracture, dislocation or lytic process seen. CT/CT soft tissue neck w IV con IMPRESSION: No evidence of neck mass or abnormal lymphadenopathy at this time. Bilateral maxillary sinus polyps versus retention cysts larger on the right. Electronically signed by: Jaxon Hammer MD 01/20/2025 05:03 PM EDT
--- OUTSIDE RECORDS SUMMARY | 2025-01-20 15:58 | XMS_ITS | Encounter Summary ---
Author Organization Formerly [facility] Address [address] [place] [address] Care Team Providers Care Technology Advisor Name Role Phone Unavailable Primary Care Provider Unavailabl e Reason for Referral * ENT (Routine) - Pending Review Specialty Diagnoses / Procedures Referred By Contac t Referred To Contact Otolaryngology Diagnoses Localized swelling, mass, and lump of head Generalized enlarged lymph nodes Mariam Veliz MD [address] [place] [phone] Phone: tel: fax: [facility] [address] [phone] Phone: tel: fax: Referral ID Status Reason Start Date Expiration Date Visits Requested Visits Authorized [id number] Pending Review Consult 01/13/2025 01/14/2026 1 1 Encounter Details Date Type Department Care Team (Late st Contact Info) Description 01/13/2025 Transcribe Orders [facility] PRIMARY CARE SCAN Mariam Veliz MD [address] [place] [phone] Localized swelling, mass, and lump of [...]
--- OUTSIDE RECORDS SUMMARY | 2025-01-20 15:58 | XMS_ITS | Clinical Summary ---
Author Organization Formerly [facility] Address [address] [place] [address] Care Team Providers Care Commercial Airplane Pilot Name Role Phone Unavailable Primary Care Provider Unavailabl e Encounters Date Type Department Care Team Description 01/13/2025 Transcribe Orders [facility] PRIMARY CARE SCAN Mariam Veliz MD Localized [...]
[2025-01-20] MEDS: iohexoL 350 MG/ML 100 ML INFUS..BTL IV (16:39)
== END 2025-01-20 14:58 | disposition home or self-care (01) ==
LOC: HO.CT 14:57
PROVIDERS: PCP Internal Medicine; Visit Provider Internal Medicine
DX: R22.0 Localized swelling, mass and lump, head (principal)
CPT/HCPCS: 70491; Q9967

== ENCOUNTER → 2025-01-20 14:58 | Outpatient (BNV) | payer OTHER, SELFPAY | PROVIDERS: PCP Internal Medicine; Visit Provider Radiology Diagnostic Radiology | DX: R59.1 Generalized enlarged lymph nodes (principal) | CPT/HCPCS: 70491 ==

== ENCOUNTER → 2025-05-18 08:02 | Outpatient (REF) | payer OTHER, SELFPAY ==
--- NOTE | 2025-05-18 08:06 | CA_ITS ---
Transthoracic Echocardiogram Patient (Last, First, Middle): Veronica Hodge, Gender: F Date of : 1995 Age: 29 Procedure Date: 05/18/2025 Procedure Type: Transthoracic Echocardiogram Location: OP Height: 167. cm Weight: 72.12 kg BSA: 1.81 m2 Heart Rate: 78 bpm BP: 105 / 60 mmHg Head Inspector: TONIE Hurd MD: Mariam Veliz MD Unix Analyst: Roberto Soriano MD Symptoms: R55 - Syncope and collapse Study Quality: Adequate ECG Rhythm: Sinus Conclusions: - Normal study Findings Left Ventricle Normal left ventricular size, thickness, and systolic function. The visually estimated ejection fraction is between 55-60%. Diastolic function is normal for age. Right Ventricle Normal right ventricular cavity size and systolic function. Atria Both atria are normal in size. There is no evidence of interatrial shunt. Aortic Valve Normal aortic valve structure and function. There is no aortic valve stenosis. There is no aortic valve regurgitation. Mitral Valve Normal mitral valve structure and function. There is trace mitral valve regurgitation. There is no mitral valve stenosis. Pulmonic Valve The pulmonic valve is likely normal. Tricuspid Valve Normal tricuspid valve structure. There is trace tricuspid valve regurgitation. The right ventricular systolic pressure is normal. The right ventricular systolic pressure is 13 mmHg. Normal right atrial pressure. There is no evidence of pulmonary hypertension. Great Vessels All visible segments of the aorta are normal in size. The pulmonary artery was not well visualized. Venous The inferior vena cava is normal in size and collapses greater than 50% with inspiration. Pericardium/Pleural There is no evidence of pericardial effusion. Prior Study Comparison No prior study available for comparison. Measurements 2D Linear Measurements IVSd: 0.64 0.6-0.9/0.6-1.0 cm LVIDd: 5.04 3.9-5.3/4.2-5.9 cm LVIDd Index: 2.78 2.4-3.2/2.2-3.1 cm/m2 LVIDs: 3.15 2.0-3.6 cm LVPWd: 0.65 0.7-1.1 cm LA Diam: 3.40 2.7-3.8/3.0-4.0 cm LAIDs Index: 1.88 1.5-2.3 cm/m2 LV Mass: 130.26 67-162/88-224 g LV Mass Index: 71.97 43-95/49-115 g/m2 LVOT Diam: 2.00 3.0+(-)1.3 cm Mitral Valve MV Pk E: 0.90 MV PK A: 0.79 MV Decel Time: 133.00 E/A: 1.10 E'Lateral: 17.30 E'Medial: 13.10 E/E' Med: 6.80 E/E' Lat: 5.20 PHT: 39.00 MVA PHT: 5.64 Decel [place]: 6.72 Aortic Valve AoV Pk Ernesto: 1.37 AoV Mn Ernesto: 0.98 AoV VTI: 0.28 AoV Pk Grad: 8.00 Aov Mn Grad: 4.00 RACHAEL Cont.VTI: 2.85 LVOT LVOT Pk Ernesto: 1.30 LVOT Mn Ernesto: 0.95 LVOT VTI: 0.26 LVOT Pk Grad: 7.00 LVOT Mn Grad: 4.00 LVOT Diam: 2.00 LVOT Area: 3.14 Diastolic Function MV Pk E: 0.90 MV Pk A: 0.79 E/A: 1.10 E'Medial: 13.10 E/E' Med: 6.80 E' Laterial: 17.30 E/E' Lat: 5.20 Right Ventricle TAPSE (mm): 24.00 TVS' Ernseto: 13.90 Tricuspid Valve TR Pk Ernesto: 1.56 TR Pk Grad: 10.00 RA Press: 3.00 RVSP: 13.00 Great Vessels Aorta Sinus of Valsalva: 2.70 2.0-3.5 cm Ao Asc: 2.90 2.1-3.4 cm Pulmonary Veins Pulm Vein S/D 1.60 Pulmonary Valve PV Pk Ernesto: 1.00 Peak PV Grad: 4.00 MT Pk Ernesto: 1.75 Updated in Other Vendor System with Status of Final Roberto Soriano MD electronically signed on 05/18/2025 4:15:23 PM with status of Final
== END ==
LOC: HO.CARD 08:02
PROVIDERS: PCP Internal Medicine; Visit Provider Internal Medicine
DX: I95.1 Orthostatic hypotension (principal)
CPT/HCPCS: 93306

== ENCOUNTER → 2025-05-18 08:06 | Outpatient (BNV) | payer OTHER, SELFPAY | PROVIDERS: PCP Internal Medicine; Visit Provider Internal Medicine Cardiovascular Disease | DX: R55 Syncope and collapse (principal) | CPT/HCPCS: 93306 ==

== ENCOUNTER 2025-05-20 10:22 | Outpatient (REF) | payer OTHER, SELFPAY ==
[2025-05-20 12:32] LABS: MANUAL DIFF FLAG NO
[2025-05-20 12:35] LABS: Hematocrit 35.4 % (37.0-47.0); Hemoglobin 10.8 g/dl (12.0-16.0); Imm Gran Abs Auto 0.01 X10*3/uL (0.00-0.03); Imm Gran Pct Auto 0.2 % (0.0-0.4); Lymphocytes Absolute Auto 1.6 X10*3/uL (1.2-4.9); Mean Corpuscular HGB Conc 30.5 g/dl (31.0-35.0); Mean Corpuscular Hemoglobin 24.9 pg (27.0-33.0); Mean Corpuscular Volume 81.8 fL (80.0-98.0); NRBC Abs Auto 0.000 X10*3/uL (0.0-0.012); NRBC Pct Auto 0.0 /100WBC (0.0-0.2); Platelet Count 354 X10*3/uL (160-400); Red Blood Count 4.33 X10*6/uL (4.20-5.50); White Blood Count 4.7 X10*3/uL (4.8-10.8)
--- OUTSIDE RECORDS SUMMARY | 2025-05-20 12:36 | XMS_ITS | Encounter Summary ---
Author Organization [facility] Address [address] [place] [phone] Phone Care Team Providers Care Track Worker Name Role Phone Adriane Hampton MD Primary Care Provid er Encounter Details Date Type Department Care Team (Latest Contact Info) Description 09/12/2021 Transcribe Orders Virtual Department [address] [place] [id number] Alberto Nguyen MD, MPH [address] [place] [phone] [email or web address] Runny nose (Primary Dx) Social History Tobacco Use Types Packs/Day Years Used Date Smoking Tobacco: Never Assessed Comments Unknown Sex and Gender Information Value Date Recorded Sex Assigned at Female 01/17/2022 6:53 PM EDT Legal Sex Female 12:14 PM EDT Gender Identity Female 01/17/2022 6:53 PM EDT Sexual Orientation Straight 01/17/2022 6: 53 PM EDT documented as of this encounter Plan of Treatment Not on file documented as of this encounter Results * COVID-19 PCR Order (09/12/2021 3:50 PM EST) COVID Testing Status In-house testing being performed [facility] Symptomatic? YES [facility] Other 09/12/2021 3:50 PM EST 09/12/2021 5:42 PM EST us Alberto Nguyen MD, MPH BODY FLUIDS AND STOOLS ORDERABLES Final Result [facility] [address] [place] [address] documented in this encounter Visit Diagnoses Diagnosis Runny nose- Primary Other diseases of nasal cavity and sinuses documented in this encounter Additional Health Concerns Infection Onset Date Last Indicated Resolved Time CoV-Risk 09/12/2021 09/12/2021 09/22/2021 1:23 AM EST CoV-Exposed Comment:From [facility] 07/12/2022 07/12/2022 07/23/2022 6:40 A M EST CoV-Presumed 07/12/2022 07/12/2022 08/02/2022 8:50 AM EST documented as of this encounter Care Teams Track Worker Relationship Specialty Start Date End Date Adriane Hampton MD [address] [place] [address] PCP - General Internal Medicine 04/05/21 documented as of this encounter Additional Source Comments The information contained in this document represents components of the legal health record. It is not the complete legal health record.[facility]
--- OUTSIDE RECORDS SUMMARY | 2025-05-20 12:36 | XMS_ITS ---
Author Name [facility] Organization Unknown Problems Problem Status Onset Date Problem Type Date of Resoluti on Source Generalized enlarged lymph nodes active EncounterDiagnosisAct [facility]HCCT Localized swelling, mass, and lump of head active EncounterDiagnosisAct HHCCT
--- OUTSIDE RECORDS SUMMARY | 2025-05-20 12:36 | XMS_ITS | Clinical Summary ---
Author Organization [facility] Address [address] [place] [phone] Phone Care Team Providers Care Sas Programmer Remote Name Role Phone Adriane Hampton MD Primary Care Provid er Immunizations Immunization Administration Dates Next Due COVID-19 (Pre-07/02) Pfizer Vaccine, mRNA, PF 10/26/2021,01/28/2021,01/07/2021 Influenza Quadrivalent Preservative Free IM 06/10,06/28/2021,06/28/2021 Influenza, Unspecified Formulation 07/09/2023 Social History Tobacco Use Types Packs/Day Years Used Date Smoking Tobacco: Never Assessed Education Answer Date Recorded Are you interested in more education? Not on federica e 01/06/2023 Are you concerned about learning? Not on file 01/06/2023 No 01/06/2023 No 01/06/2023 Digital Access Answer Date Recorded No 02/04/2023 No 02/04/2023 No 02/04/2023 Reliable internet access at home? Not on file 02/04/2023 Device with a working camera? Not on file Comments Unknown Sex and Gender Information Value Date Recorded Sex Assigned at Female 01/17/2022 6:53 PM EDT Legal Sex Female 12:14 PM EDT Gender Identity Female 01/17/2022 6:53 PM EDT Sexual Orientation Straight 01/17/2022 6: 53 PM EDT Plan of Treatment Health Maintenance Due Date Last Done Comments Adult Td,Tdap Booster 1995 DEPRESSION SCREENING 2006 SMOKING Hx and SMOKELESS TOBACCO SCREENING 2007 HEPATITIS C SCREENING 2012 HIV ONE-TIME SCREENING (18-65 YEARS) 2012 PAP SMEAR 2015 INFLUENZA VACCINE (#1) 2025 , 06/27/2022, 06/28/2021, Additional history exists COVID-19 VACCINE ( season) 2025 10/26/2021, 10/26/2021, 01/28/2021, Additional history exists HEPATITIS A VACCINES Aged Out No long er eligible based on patient's age to complete this topic HIB VACCINES Aged Out No longer eligi ble based on patient's age to complete this topic MENINGOCOCCAL VACCINES (ACWY) Aged Out No longer eligible based on patient's age to complete this topic MENINGOCOCCAL VACCINES (B) Aged Out N o longer eligible based on patient's age to complete this topic PNEUMOCOCCAL VACCINES (0-49 years) Aged Out No longer eligible based on patient's age to complete this topic Medical Devices Not on file [place] [address] [place] [address] [employer] NET PARTIAL Member Subscriber Plan / Payer (Ef fective 2021-Present) Name:Veronica Hodge Relation to Subscriber:Self Name:Veronica Hodge Payer ID:Not on file Group ID:Not on file Type:Medicaid Address: [address] [employer] NET PARTIAL Member Subscriber Plan / Payer (Ef fective 2021-Present) Name:Veronica Hodge Relation to Subscriber:Self Name:Veroniac Hodge Payer ID:Not on file Group ID:Not on file Type:Medicaid Address: [address] [employer] NET PARTIAL Member Subscriber Plan / Payer (Ef fective 2021-Present) Name:Veronica Hodge Relation to Subscriber:Self Name:Veronica Hodge Payer ID:Not on file Group ID:Not on file Type:Medicaid Address: [address] [employer] NET PARTIAL [employer] FAMILY PARTIAL Member Subscriber Plan / Payer ( fective 2021-Present) Name:Veronica Hodge Relation to Subscriber:Self Name:Veronica Hodge Payer ID:Not on file Group ID:Not on file Type:Medicaid Address: [place] [id number] [employer] NET PARTIAL Member Subscriber Plan / Payer (Ef fective 2021-Present) Name:Veronica Hodge Relation to Subscriber:Self Name:Rolando EpsteinVeronica Payer ID:Not on file Group ID:Not on file Type:Medicaid Address: [address] [place] [address] [employer] NET PARTIAL [employer] FAMILY [facility] NET PARTIAL P EMPLOYEES FAMILY Care Teams Sas Programmer Remote Relationship Specialty Start Date End Date Adriane Hampton MD [address] [place] [address] PCP - General Internal Medicine 04/05/21 Additional Source Comments The information contained in this document represents components of the legal health record. It is not the complete legal health record.[facility]
--- OUTSIDE RECORDS SUMMARY | 2025-05-20 12:36 | XMS_ITS | Clinical Summary ---
Author Organization [facility] Address [address] [place] [address] Care Team Providers Care Cleaner And Dyer Name Role Phone Unavailable Primary Care Provider Unavailabl e Social History Tobacco Use Types Packs/Day Years [...] of 3 - 19+ 3-dose series) 2013 HPV Vaccines (1 - 3-dose SCD M series) 2021 COVID-19 Vaccine ( - 2023-2 5 season) 2024 Pneumococcal Vaccine: Pediat mishel (0-5 Years) and At-Risk Patients (6 to 49 Years) Aged Out No longer eligible b ased on patient's age to complete this topic
[2025-05-20 13:19] LABS: Iron 36 mcg/dL (30-160); Percent Iron Saturation 11 % (15-50); Total Iron Binding Capacity 315 mcg/dL (228-428); Unsaturated Iron Binding 279 ug/dL
[2025-05-21 09:23] LABS: Lyme Abs Screen <0.90 index
[2025-05-26 11:13] LABS: Anti Nuclear Antibody Pattern Nuclear, Homogeneous; Anti Nuclear Antibody Screen POSITIVE (NEGATIVE); Anti Nuclear Antibody Titer 1:40 titer
== END 2025-05-20 10:23 | disposition home or self-care (01) ==
LOC: HO.WFDLDS 10:22
PROVIDERS: Visit Provider Internal Medicine
DX: Z01.84 Encounter for antibody response examination (principal); D64.9 Anemia, unspecified; R55 Syncope and collapse
CPT/HCPCS: 36415; 83540; 85025; 86038; 86039; 86617; 86618